=== PATIENT | male | born 1950 | race Two or more races ===

== ENCOUNTER 2021-09-25 12:56 | Inpatient (IN) | payer OTHER ==
[~2021-09-25] VITALS: Ht 188 cm; Wt 88.9 kg
[2021-09-25 14:44] LABS: Basophils # (auto) 0.1 10 ^3/uL (0-0.2); Basophils % (auto) 0.7 % (0.0-2.0); Eosinophils # (auto) 0.1 10 ^3/uL (0-0.8); Eosinophils % (auto) 0.7 % (0.0-7.0); Hematocrit 38.3 % (41.0-53.0); Hemoglobin 13.3 g/dL (13.5-17.5); Lymphocytes # (auto) 0.6 10 ^3/uL (0.4-5.4); Lymphocytes % (auto) 7.6 % (10.0-50.0); Mean Corpuscular Hemoglobin 33.5 pg (28.0-32.0); Mean Corpuscular Hgb Conc. 34.7 g/dL (32.0-36.0); Mean Corpuscular Volume 96.5 fL (80.0-100.0); Monocytes # (auto) 0.5 10 ^3/uL (0-1.3); Monocytes % (auto) 6.2 % (0.0-12.0); Neutrophils % (auto) 84.8 % (37.0-80.0); Nucleated Red Blood Cells % 0.1 %; Red Blood Cells 3.97 10^6/uL (4.5-5.90); Red Cell Distribution Width 13.9 % (11.8-14.3); White Blood Cell 8.3 10^3/uL (4.4-10.8)
[2021-09-25 14:58] LABS: Albumin 2.7 g/dL (3.4-5.0); BUN/Creatinine Ratio 13.3; Calcium 8.2 mg/dL (8.5-10.1); Potassium 3.8 mmol/L (3.5-5.1)
[2021-09-25 15:03] LABS: Bilirubin, Total 0.8 mg/dL (0.2-1.0); Total Protein 6.2 g/dL (6.4-8.2)
[2021-09-25 18:33] LABS: Urine Bacteria NONE SEEN /hpf (None Seen); Urine Blood Negative /uL (Negative); Urine Hyaline Cast FEW /lpf (0 - 2); Urine Specific Gravity 1.016 (1.001-1.035); Urine WBC 3 /hpf (0 - 3)
[2021-09-25] MEDS ORDERED: hydrALAZINE HCL 20 MG/ML VL IV PRN (19:00)
[2021-09-25] MEDS ORDERED: ACETAMINOPHEN 325 MG TAB PO PRN (19:00)
[2021-09-25] MEDS ORDERED: MORPHINE SULFATE 4 MG/ML SYR/VIAL IV PRN (19:00)
[2021-09-25] MEDS ORDERED: MORPHINE SULFATE INJECTION 2 MG/ML SYRG IV PRN (19:00)
[2021-09-25] MEDS ORDERED: NITROGLYCERIN 0.4 MG SL TAB SL PRN (19:00)
[2021-09-25] MEDS ORDERED: DEXTROSE (50%) 50ML SYRG IV PRN (19:00)
[2021-09-25] MEDS: ACCU-CHEK COMFORT CURVE STRIP VI SCH (21:28)
[2021-09-25 22:00] VITALS: BP 97/49
[2021-09-25] MEDS: SODIUM CHLORIDE 0.9% 1,000 ML IV SCH (22:03)
[2021-09-25] MEDS: SERTRALINE HCL 50 MG TAB PO SCH (22:03)
[2021-09-25] MEDS: InsuLIN REG 1unit/0.01ml Soln (100units/ml) SC SCH (22:52)
[2021-09-26] MEDS: HYDROcodone-ACET 5/325MG TAB PO PRN ×2 (01:01→06:32)
[2021-09-26 05:00] VITALS: BP 106/55
[2021-09-26] MEDS: InsuLIN REG 1unit/0.01ml Soln (100units/ml) SC SCH ×4 (06:30→21:31)
[2021-09-26] MEDS: ACCU-CHEK COMFORT CURVE STRIP VI SCH ×4 (06:31→21:38)
[2021-09-26 09:00] VITALS: BP 97/55
[2021-09-26] MEDS: busPIRone HCL 10 MG TAB PO SCH (09:29)
[2021-09-26] MEDS: ENOXAPARIN SOD 100 MG/1 ML SYRINGE SC SCH (09:30)
[2021-09-26 09:36] LABS: Basophils # (auto) 0.2 10 ^3/uL (0-0.2); Basophils % (auto) 2.1 % (0.0-2.0); Eosinophils # (auto) 0.2 10 ^3/uL (0-0.8); Hematocrit 36.3 % (41.0-53.0); Hemoglobin 12.7 g/dL (13.5-17.5); Lymphocytes # (auto) 0.8 10 ^3/uL (0.4-5.4); Lymphocytes % (auto) 10.5 % (10.0-50.0); Mean Corpuscular Hemoglobin 33.9 pg (28.0-32.0); Mean Corpuscular Volume 96.9 fL (80.0-100.0); Monocytes # (auto) 0.5 10 ^3/uL (0-1.3); Monocytes % (auto) 7.3 % (0.0-12.0); Neutrophils # (auto) 5.6 10 ^3/uL (1.6-8.6); Neutrophils % (auto) 77.1 % (37.0-80.0); Red Blood Cells 3.74 10^6/uL (4.5-5.90); Red Cell Distribution Width 13.7 % (11.8-14.3); White Blood Cell 7.2 10^3/uL (4.4-10.8)
[2021-09-26] MEDS: SODIUM CHLORIDE 0.9% 1,000 ML IV SCH ×3 (09:39→22:00)
[2021-09-26 09:58] LABS: Albumin 2.6 g/dL (3.4-5.0); Potassium 3.6 mmol/L (3.5-5.1)
[2021-09-26] MEDS ORDERED: amLODIPine BESYLATE 5 MG TAB PO SCH (10:00)
[2021-09-26 10:03] LABS: BUN/Creatinine Ratio 16.7; Bilirubin, Total 0.6 mg/dL (0.2-1.0); Total Protein 5.5 g/dL (6.4-8.2)
[2021-09-26 12:38] VITALS: BP 95/54
[2021-09-26 16:52] VITALS: BP 128/65
[2021-09-26] MEDS: SERTRALINE HCL 50 MG TAB PO SCH (21:38)
[2021-09-26 22:00] VITALS: BP 121/69
[2021-09-27 05:00] VITALS: BP 109/54
[2021-09-27 06:28] LABS: Calcium 8.1 mg/dL (8.5-10.1); Potassium 3.6 mmol/L (3.5-5.1)
[2021-09-27 06:31] LABS: BUN/Creatinine Ratio 18.1
[2021-09-27] MEDS: SODIUM CHLORIDE 0.9% 1,000 ML IV SCH ×2 (06:43→07:43)
[2021-09-27] MEDS: ACCU-CHEK COMFORT CURVE STRIP VI SCH ×3 (06:43→17:00)
[2021-09-27] MEDS: InsuLIN REG 1unit/0.01ml Soln (100units/ml) SC SCH ×3 (06:44→17:38)
[2021-09-27 09:00] VITALS: BP 138/72
[2021-09-27] MEDS ORDERED: amLODIPine BESYLATE 5 MG TAB PO SCH (10:00)
[2021-09-27] MEDS: busPIRone HCL 10 MG TAB PO SCH (11:15)
[2021-09-27] MEDS: ENOXAPARIN SOD 100 MG/1 ML SYRINGE SC SCH (11:17)
[2021-09-27 12:38] VITALS: BP 149/75
[2021-09-27] MEDS ORDERED: SODIUM CHLORIDE 0.9% 1,000 ML IV SCH (13:00)
[2021-09-27 16:38] VITALS: BP 141/67
[2021-09-27] MEDS: HYDROcodone-ACET 5/325MG TAB PO PRN (17:07)
[2021-09-27 20:43] VITALS: BP 138/72
[2021-09-27 21:04] VITALS: BP 132/76
== END 2021-09-27 21:22 | disposition home or self-care (01) | DRG 314 ==
LOC: ER 12:56 → EDBD 12:56 → TELE 18:51 → TELE-WESTW 21:40
PROVIDERS: ADMIT Nurse Practitioner; ATTEND Nurse Practitioner
PROC: 4B02XSZ Measurement of Cardiac Pacemaker, External Approach (ICD-10-PCS; principal; 2021-09-26)
DX: T82.119A Breakdown (mechanical) of unspecified cardiac electronic device, initial encounter (principal); N17.0 Acute kidney failure with tubular necrosis; S22.31XA Fracture of one rib, right side, initial encounter for closed fracture; E44.0 Moderate protein-calorie malnutrition; R29.6 Repeated falls; E11.21 Type 2 diabetes mellitus with diabetic nephropathy; Z68.25 Body mass index [BMI] 25.0-25.9, adult; I95.9 Hypotension, unspecified; F17.210 Nicotine dependence, cigarettes, uncomplicated; I10 Essential (primary) hypertension; I48.91 Unspecified atrial fibrillation; S51.002A Unspecified open wound of left elbow, initial encounter; Z20.822 Contact with and (suspected) exposure to COVID-19; W18.39XA Other fall on same level, initial encounter; M50.10 Cervical disc disorder with radiculopathy, unspecified cervical region; S61.402A Unspecified open wound of left hand, initial encounter; Y71.2 Prosthetic and other implants, materials and accessory cardiovascular devices associated with adverse incidents; Z82.49 Family history of ischemic heart disease and other diseases of the circulatory system; Z82.5 Family history of asthma and other chronic lower respiratory diseases; Z91.14 Patient's other noncompliance with medication regimen; Z90.49 Acquired absence of other specified parts of digestive tract; Z95.0 Presence of cardiac pacemaker; Y93.89 Activity, other specified; Y92.89 Other specified places as the place of occurrence of the external cause; Y99.8 Other external cause status
CPT/HCPCS: 36415; 70450; 71046; 71101; 72125; 72131; 80048; 80053; 80061; 81001; 82550; 82962; 83036; 83880; 84484; 85025; 87426; 93005; 93306; 93886; 96374; 97163; G0378; J1815

== ENCOUNTER 2021-11-10 12:36 | Inpatient (IN) | payer OTHER ==
[~2021-11-10] VITALS: Ht 190.5 cm; Wt 82.7 kg
[2021-11-10] MEDS ORDERED: SODIUM CHLORIDE 0.9% 1,000 ML IVB ONE (13:00)
[2021-11-10 13:35] LABS: Urine Bacteria NONE SEEN /hpf (None Seen); Urine Blood Negative /uL (Negative); Urine Hyaline Cast FEW /lpf (0 - 2); Urine Specific Gravity 1.017 (1.001-1.035); Urine WBC 1 /hpf (0 - 3)
[2021-11-10 13:54] LABS: Amphetamine Screen, Urine NEGATIVE (NEGATIVE); Barbiturate Scree,Urine NEGATIVE (NEGATIVE); Benzodiazephine Screen, Urine NEGATIVE (NEGATIVE); Cannabinoid Screen, Urine NEGATIVE (NEGATIVE); Cocaine Screen, Urine NEGATIVE (NEGATIVE); Opiate Scree,Urine NEGATIVE (NEGATIVE); Phencyclidine Screen, Urine NEGATIVE (NEGATIVE)
[2021-11-10 15:06] LABS: Basophils # (auto) 0.1 10 ^3/uL (0-0.2); Basophils % (auto) 0.5 % (0.0-2.0); Eosinophils # (auto) 0 10 ^3/uL (0-0.8); Eosinophils % (auto) 0.3 % (0.0-7.0); Hematocrit 36.9 % (41.0-53.0); Hemoglobin 12.6 g/dL (13.5-17.5); Lymphocytes # (auto) 0.7 10 ^3/uL (0.4-5.4); Lymphocytes % (auto) 6.6 % (10.0-50.0); Mean Corpuscular Hemoglobin 33.9 pg (28.0-32.0); Mean Corpuscular Hgb Conc. 34.3 g/dL (32.0-36.0); Mean Corpuscular Volume 98.8 fL (80.0-100.0); Monocytes # (auto) 0.7 10 ^3/uL (0-1.3); Monocytes % (auto) 6.6 % (0.0-12.0); Neutrophils # (auto) 8.7 10 ^3/uL (1.6-8.6); Red Blood Cells 3.73 10^6/uL (4.5-5.90); Red Cell Distribution Width 14.2 % (11.8-14.3); White Blood Cell 10.1 10^3/uL (4.4-10.8)
[2021-11-10 15:21] LABS: INR 1.05 (0.9-1.15); Partial Thromboplastin Time 20.5 sec (23.6-33.0)
[2021-11-10 15:26] LABS: Albumin 3.3 g/dL (3.4-5.0); Calcium 8.1 mg/dL (8.5-10.1); Magnesium 3.5 mg/dL (1.6-2.6); Potassium 3.9 mmol/L (3.5-5.1)
[2021-11-10 15:29] LABS: BUN/Creatinine Ratio 15.9; Bilirubin, Total 0.9 mg/dL (0.2-1.0); Total Protein 6.5 g/dL (6.4-8.2)
[2021-11-10] MEDS: NOREPINEPHRINE 8 MG/250ML KIT 250 ML IV SCH ×2 (16:24→18:53)
[2021-11-10] MEDS ORDERED: MORPHINE SULFATE 4 MG/ML SYR/VIAL IV PRN (18:30)
[2021-11-10] MEDS ORDERED: MORPHINE SULFATE INJECTION 2 MG/ML SYRG IV PRN (18:30)
[2021-11-10] MEDS ORDERED: HYDROcodone-ACET 5/325MG TAB PO PRN (18:30)
[2021-11-10] MEDS ORDERED: NITROGLYCERIN 0.4 MG SL TAB SL PRN (18:30)
[2021-11-10] MEDS ORDERED: ACETAMINOPHEN 325 MG TAB PO PRN (18:30)
[2021-11-10] MEDS ORDERED: DOCUSATE SOD 100 MG CAP PO PRN (18:30)
[2021-11-10] MEDS ORDERED: ONDANSETRON HCL 4 MG/2 ML VIAL IV PRN (18:30)
[2021-11-10] MEDS ORDERED: cefTRIAXone 1GM/50ML D5W 50 ML IV ONE (19:00)
[2021-11-10] MEDS ORDERED: SODIUM CHLORIDE 0.9% 1,000 ML IV ONE (19:00)
[2021-11-10] MEDS: SODIUM CHLORIDE 0.9% 1,000 ML IV SCH (19:30)
[2021-11-10] MEDS: ASCORBIC ACID 500 MG TAB PO SCH (22:55)
[2021-11-11] MEDS: SODIUM CHLORIDE 0.9% 1,000 ML IV SCH ×4 (01:25→23:30)
[2021-11-11] MEDS: MORPHINE SULFATE INJECTION 2 MG/ML SYRG IV PRN (04:14)
[2021-11-11 05:49] LABS: Eosinophils # (auto) 0.2 10 ^3/uL (0-0.8); Lymphocytes # (auto) 0.9 10 ^3/uL (0.4-5.4); White Blood Cell 8.8 10^3/uL (4.4-10.8)
[2021-11-11 05:55] LABS: Basophils # (auto) 0.1 10 ^3/uL (0-0.2); Basophils % (auto) 0.8 % (0.0-2.0); Eosinophils % (auto) 2.4 % (0.0-7.0); Hematocrit 31.1 % (41.0-53.0); Hemoglobin 11.1 g/dL (13.5-17.5); Lymphocytes % (auto) 10.1 % (10.0-50.0); Mean Corpuscular Hemoglobin 34.3 pg (28.0-32.0); Mean Corpuscular Hgb Conc. 35.8 g/dL (32.0-36.0); Mean Corpuscular Volume 95.9 fL (80.0-100.0); Monocytes # (auto) 0.7 10 ^3/uL (0-1.3); Monocytes % (auto) 7.9 % (0.0-12.0); Neutrophils # (auto) 6.9 10 ^3/uL (1.6-8.6); Neutrophils % (auto) 78.8 % (37.0-80.0); Red Blood Cells 3.24 10^6/uL (4.5-5.90); Red Cell Distribution Width 13.9 % (11.8-14.3)
[2021-11-11 06:02] LABS: Albumin 2.7 g/dL (3.4-5.0); Calcium 7.7 mg/dL (8.5-10.1); Potassium 3.5 mmol/L (3.5-5.1)
[2021-11-11 06:07] LABS: BUN/Creatinine Ratio 18.3; Bilirubin, Total 0.6 mg/dL (0.2-1.0); Total Protein 6.1 g/dL (6.4-8.2)
[2021-11-11] MEDS: MULTIPLE VITAMIN TAB PO SCH (08:56)
[2021-11-11] MEDS: ZINC SULFATE 220mg CAP or TAB PO SCH (08:56)
[2021-11-11] MEDS: ENOXAPARIN SOD 30 MG/0.3 ML SYRINGE SC SCH (08:57)
[2021-11-11] MEDS: ASCORBIC ACID 500 MG TAB PO SCH ×2 (08:57→23:31)
[2021-11-11] MEDS ORDERED: LORazepam 2MG/ML-1ML VIAL IV PRN (10:45)
[2021-11-11 10:59] LABS: % Iron Saturation 19.7 % (20-55)
[2021-11-11 12:11] LABS: Ferritin 260.7 ng/mL (10-322); Folate (Folic Acid) 7.04 ng/mL (5.38-24)
[2021-11-11] MEDS: PRAMIPEXOLE DIHYDROCHLORIDE MO 0.25 MG TAB PO SCH (23:30)
[2021-11-12] MEDS ORDERED: ZOLPIDEM TARTRATE 5 MG TAB PO PRN
[2021-11-12] MEDS ORDERED: HALOPERIDOL LACTATE 5 MG/ML INJ VIAL IM PRN (03:15)
[2021-11-12] MEDS: SODIUM CHLORIDE 0.9% 1,000 ML IV SCH ×3 (04:05→17:25)
[2021-11-12 05:00] VITALS: BP 130/65
[2021-11-12 09:24] VITALS: BP 128/62
[2021-11-12] MEDS ORDERED: ROSU1TAB13 PO (09:44)
[2021-11-12] MEDS ORDERED: PARO-135 PO (09:44)
[2021-11-12] MEDS ORDERED: AMLO-496 PO (09:44)
[2021-11-12] MEDS ORDERED: GLIM-5 PO (09:44)
[2021-11-12] MEDS ORDERED: LISI-285 PO (09:44)
[2021-11-12] MEDS ORDERED: AMIT25TA12 PO (09:44)
[2021-11-12] MEDS ORDERED: AMIT1TAB41 PO (09:44)
[2021-11-12] MEDS: ZINC SULFATE 220mg CAP or TAB PO SCH (09:54)
[2021-11-12] MEDS: MULTIPLE VITAMIN TAB PO SCH (09:58)
[2021-11-12] MEDS: ENOXAPARIN SOD 30 MG/0.3 ML SYRINGE SC SCH (09:58)
[2021-11-12] MEDS: ASCORBIC ACID 500 MG TAB PO SCH ×2 (09:58→22:00)
[2021-11-12] MEDS ORDERED: ENOXAPARIN SOD 60 MG/0.6 ML SYRINGE SC ONE (10:30)
[2021-11-12 13:22] VITALS: BP 133/79
[2021-11-12] MEDS ORDERED: clonazePAM 0.5 MG TAB PO PRN (14:15)
[2021-11-12 18:04] VITALS: BP 128/67
[2021-11-12 20:00] VITALS: BP 138/69
[2021-11-12 22:00] VITALS: BP 128/65
[2021-11-12] MEDS: PRAMIPEXOLE DIHYDROCHLORIDE MO 0.25 MG TAB PO SCH (22:48)
[2021-11-12] MEDS: TEMAZEPAM 15 MG CAP PO PRN (23:50)
[2021-11-13] MEDS: SODIUM CHLORIDE 0.9% 1,000 ML IV SCH ×4 (00:05→21:18)
[2021-11-13] MEDS: MORPHINE SULFATE INJECTION 2 MG/ML SYRG IV PRN (02:43)
[2021-11-13 08:30] VITALS: BP 141/71
[2021-11-13] MEDS: ASCORBIC ACID 500 MG TAB PO SCH ×2 (09:30→21:18)
[2021-11-13] MEDS: ZINC SULFATE 220mg CAP or TAB PO SCH (09:30)
[2021-11-13] MEDS: MULTIPLE VITAMIN TAB PO SCH (09:30)
[2021-11-13] MEDS: ENOXAPARIN SOD 100 MG/1 ML SYRINGE SC SCH (09:30)
[2021-11-13 12:30] VITALS: BP 143/71
[2021-11-13 17:00] VITALS: BP 146/66
[2021-11-13 21:04] VITALS: BP 138/72
[2021-11-13] MEDS: PRAMIPEXOLE DIHYDROCHLORIDE MO 0.25 MG TAB PO SCH (21:18)
[2021-11-13] MEDS: TEMAZEPAM 15 MG CAP PO PRN (21:19)
[2021-11-14] MEDS: SODIUM CHLORIDE 0.9% 1,000 ML IV SCH ×3 (02:53→16:05)
[2021-11-14 05:03] VITALS: BP 107/65
[2021-11-14 09:00] VITALS: BP 133/68
[2021-11-14] MEDS: ASCORBIC ACID 500 MG TAB PO SCH (09:34)
[2021-11-14] MEDS: ZINC SULFATE 220mg CAP or TAB PO SCH (09:34)
[2021-11-14] MEDS: MULTIPLE VITAMIN TAB PO SCH (09:34)
[2021-11-14] MEDS: ENOXAPARIN SOD 100 MG/1 ML SYRINGE SC SCH (09:34)
[2021-11-14 13:00] VITALS: BP 147/74
[2021-11-14 14:06] LABS: Basophils # (auto) 0 10 ^3/uL (0-0.2); Basophils % (auto) 0.9 % (0.0-2.0); Eosinophils # (auto) 0.2 10 ^3/uL (0-0.8); Hematocrit 31.2 % (41.0-53.0); Hemoglobin 10.9 g/dL (13.5-17.5); Lymphocytes # (auto) 0.8 10 ^3/uL (0.4-5.4); Lymphocytes % (auto) 14.4 % (10.0-50.0); Mean Corpuscular Hemoglobin 33.7 pg (28.0-32.0); Mean Corpuscular Hgb Conc. 35.1 g/dL (32.0-36.0); Mean Corpuscular Volume 96.1 fL (80.0-100.0); Monocytes # (auto) 0.4 10 ^3/uL (0-1.3); Monocytes % (auto) 7.9 % (0.0-12.0); Neutrophils # (auto) 3.9 10 ^3/uL (1.6-8.6); Neutrophils % (auto) 73.8 % (37.0-80.0); Red Blood Cells 3.24 10^6/uL (4.5-5.90); Red Cell Distribution Width 13.5 % (11.8-14.3); White Blood Cell 5.3 10^3/uL (4.4-10.8)
[2021-11-14 14:41] LABS: Albumin 2.8 g/dL (3.4-5.0); Potassium 3.9 mmol/L (3.5-5.1)
[2021-11-14 14:47] LABS: BUN/Creatinine Ratio 12.5; Bilirubin, Total 0.5 mg/dL (0.2-1.0); Total Protein 5.8 g/dL (6.4-8.2)
[2021-11-14 17:04] VITALS: BP 140/72
[2021-11-15] MEDS ORDERED: ENOXAPARIN SOD 80 MG/0.8ML SYRINGE SC SCH (10:00)
== END 2021-11-14 15:59 | disposition home health service (06) | DRG 314 ==
LOC: EDBD 12:36 → ER 12:36 → TELE 18:30 → TELE-CENTR 11-11 09:44
PROVIDERS: ADMIT Internal Medicine; ATTEND Internal Medicine
PROC: 4B02XSZ Measurement of Cardiac Pacemaker, External Approach (ICD-10-PCS; principal; 2021-11-10)
DX: I95.9 Hypotension, unspecified (principal); N17.0 Acute kidney failure with tubular necrosis; M48.56XA Collapsed vertebra, not elsewhere classified, lumbar region, initial encounter for fracture; J90 Pleural effusion, not elsewhere classified; E86.0 Dehydration; E11.42 Type 2 diabetes mellitus with diabetic polyneuropathy; E11.65 Type 2 diabetes mellitus with hyperglycemia; E61.1 Iron deficiency; F17.210 Nicotine dependence, cigarettes, uncomplicated; G25.81 Restless legs syndrome; I48.91 Unspecified atrial fibrillation; Z20.822 Contact with and (suspected) exposure to COVID-19; F19.10 Other psychoactive substance abuse, uncomplicated; G47.00 Insomnia, unspecified; I10 Essential (primary) hypertension; R29.6 Repeated falls; F10.10 Alcohol abuse, uncomplicated; F12.10 Cannabis abuse, uncomplicated; Z79.01 Long term (current) use of anticoagulants; Z79.84 Long term (current) use of oral hypoglycemic drugs; Z82.49 Family history of ischemic heart disease and other diseases of the circulatory system; Z82.5 Family history of asthma and other chronic lower respiratory diseases; Z90.49 Acquired absence of other specified parts of digestive tract; Z91.14 Patient's other noncompliance with medication regimen; Z95.0 Presence of cardiac pacemaker; I27.20 Pulmonary hypertension, unspecified
CPT/HCPCS: 36415; 51702; 70450; 70551; 71045; 72131; 80053; 80307; 81001; 82607; 82728; 82746; 83540; 83550; 83605; 83735; 84443; 84484; 85025; 85379; 85610; 85730; 87040; 87081; 87426; 93005; 93306; 93970; 95819; 96361; 96365; 97110; 97116; 97163; 97530; 99291; G0378; J0696; J2405

== ENCOUNTER 2022-01-29 12:21 | Emergency (ER) | payer OTHER ==
[~2022-01-29] VITALS: Ht 190.5 cm; Wt 83.9 kg
[~2022-01-29 12:21] MED LIST: AMIT25TA12 PO; GLIM-5 PO; PARO-135 PO; ROSU1TAB13 PO
[2022-01-29 12:24] VITALS: BP 127/69
[2022-01-29 13:45] LABS: Basophils # (auto) 0.1 10 ^3/uL (0-0.2); Basophils % (auto) 1.1 % (0.0-2.0); Eosinophils # (auto) 0.1 10 ^3/uL (0-0.8); Eosinophils % (auto) 1.3 % (0.0-7.0); Hematocrit 37.9 % (41.0-53.0); Hemoglobin 13.2 g/dL (13.5-17.5); Lymphocytes % (auto) 10.3 % (10.0-50.0); Mean Corpuscular Hemoglobin 33.4 pg (28.0-32.0); Mean Corpuscular Hgb Conc. 34.8 g/dL (32.0-36.0); Monocytes # (auto) 0.7 10 ^3/uL (0-1.3); Monocytes % (auto) 7.3 % (0.0-12.0); Neutrophils # (auto) 7.5 10 ^3/uL (1.6-8.6); Nucleated Red Blood Cells % 0.1 %; Red Blood Cells 3.95 10^6/uL (4.5-5.90); Red Cell Distribution Width 13.1 % (11.8-14.3); White Blood Cell 9.4 10^3/uL (4.4-10.8)
[2022-01-29 14:37] LABS: Albumin 3.1 g/dL (3.4-5.0); BUN/Creatinine Ratio 11.1; Calcium 8.7 mg/dL (8.5-10.1); Potassium 3.8 mmol/L (3.5-5.1)
[2022-01-29 14:42] LABS: Bilirubin, Total 0.5 mg/dL (0.2-1.0); Total Protein 6.3 g/dL (6.4-8.2)
[2022-02-05] MEDS ORDERED: LEVO500T31 PO (11:59)
== END 2022-01-29 14:55 | disposition left against medical advice (07) ==
LOC: ER 12:21
DX: S01.81XA Laceration without foreign body of other part of head, initial encounter (principal); R55 Syncope and collapse; R07.81 Pleurodynia; M25.521 Pain in right elbow; Z53.21 Procedure and treatment not carried out due to patient leaving prior to being seen by health care provider; V89.2XXA Person injured in unspecified motor-vehicle accident, traffic, initial encounter; Y93.I9 Activity, other involving external motion; Y92.89 Other specified places as the place of occurrence of the external cause; Y99.8 Other external cause status
CPT/HCPCS: 36415; 70450; 71045; 80053; 84484; 85025; 93005

== ENCOUNTER 2022-02-01 09:46 | Emergency (ER) | payer OTHER ==
[~2022-02-01] VITALS: Ht 190.5 cm; Wt 81.6 kg
[2022-02-01] MEDS ORDERED: CLINDAMYCIN 600MG IV 50 ML IV ONE (12:15)
[2022-02-01] MEDS ORDERED: cefTRIAXone 1GM/50ML D5W 50 ML IV ONE ×2 (12:15→17:30)
[2022-02-01 13:42] LABS: Basophils # (auto) 0.1 10 ^3/uL (0-0.2); Basophils % (auto) 0.7 % (0.0-2.0); Eosinophils # (auto) 0.1 10 ^3/uL (0-0.8); Eosinophils % (auto) 1.9 % (0.0-7.0); Hematocrit 35.5 % (41.0-53.0); Hemoglobin 12.3 g/dL (13.5-17.5); Lymphocytes # (auto) 0.6 10 ^3/uL (0.4-5.4); Lymphocytes % (auto) 8.2 % (10.0-50.0); Mean Corpuscular Hemoglobin 33.4 pg (28.0-32.0); Mean Corpuscular Hgb Conc. 34.6 g/dL (32.0-36.0); Mean Corpuscular Volume 96.3 fL (80.0-100.0); Monocytes # (auto) 0.6 10 ^3/uL (0-1.3); Monocytes % (auto) 8.3 % (0.0-12.0); Neutrophils % (auto) 80.9 % (37.0-80.0); Nucleated Red Blood Cells % 0.1 %; Red Blood Cells 3.69 10^6/uL (4.5-5.90); Red Cell Distribution Width 13.2 % (11.8-14.3); White Blood Cell 7.5 10^3/uL (4.4-10.8)
[2022-02-01 13:51] LABS: INR 1.06 (0.9-1.15); Partial Thromboplastin Time 26.5 sec (23.6-33.0)
[2022-02-01 13:54] LABS: Albumin 2.9 g/dL (3.4-5.0); BUN/Creatinine Ratio 11.6; Calcium 8.3 mg/dL (8.5-10.1)
[2022-02-01 13:59] LABS: Bilirubin, Total 0.7 mg/dL (0.2-1.0); Total Protein 6.3 g/dL (6.4-8.2)
[2022-02-01] MEDS ORDERED: FUROSEMIDE 40 MG/4 ML VIAL IV ONE (15:45)
[2022-02-01 18:09] VITALS: BP 183/72
[2022-02-01] MEDS ORDERED: CEPH-509 PO ×2 (18:31→19:05)
[2022-02-01] MEDS ORDERED: CLIN300C8 PO ×2 (18:31→19:05)
[2022-02-05] MEDS ORDERED: LEVO500T31 PO (11:59)
== END 2022-02-01 18:47 | disposition home or self-care (01) ==
LOC: ER 09:46
DX: L03.113 Cellulitis of right upper limb (principal); E44.0 Moderate protein-calorie malnutrition; I11.0 Hypertensive heart disease with heart failure; I50.9 Heart failure, unspecified; E11.9 Type 2 diabetes mellitus without complications; Z68.22 Body mass index [BMI] 22.0-22.9, adult
CPT/HCPCS: 36415; 70450; 71045; 73200; 80053; 83605; 83880; 84484; 85025; 85610; 85730; 87040; 87077; 87186; 96365; 96366; 96367; 99291; J0696; J3490

== ENCOUNTER 2022-02-03 15:41 | Inpatient (IN) | payer OTHER ==
[~2022-02-03] VITALS: Ht 190.5 cm; Wt 79.2 kg
[~2022-02-03 15:41] MED LIST changes: +CEPH-509 PO; +CLIN300C8 PO
[2022-02-03] MEDS ORDERED: cefTRIAXone 1GM/50ML D5W 50 ML IV ONE (16:15)
[2022-02-03] MEDS ORDERED: metroNIDAZOLE 500MG/100ML 100 ML IV ONE (16:15)
[2022-02-03 17:33] LABS: Albumin 2.8 g/dL (3.4-5.0); Calcium 8.6 mg/dL (8.5-10.1); INR 1.04 (0.9-1.15); Partial Thromboplastin Time 26.4 sec (23.6-33.0); Potassium 3.8 mmol/L (3.5-5.1)
[2022-02-03 17:35] LABS: Basophils # (auto) 0 10 ^3/uL (0-0.2); Basophils % (auto) 0.6 % (0.0-2.0); Eosinophils # (auto) 0.3 10 ^3/uL (0-0.8); Eosinophils % (auto) 4.1 % (0.0-7.0); Hematocrit 34.1 % (41.0-53.0); Hemoglobin 11.9 g/dL (13.5-17.5); Lymphocytes # (auto) 1.1 10 ^3/uL (0.4-5.4); Lymphocytes % (auto) 16.7 % (10.0-50.0); Mean Corpuscular Volume 94.1 fL (80.0-100.0); Monocytes # (auto) 0.6 10 ^3/uL (0-1.3); Monocytes % (auto) 9.3 % (0.0-12.0); Neutrophils # (auto) 4.7 10 ^3/uL (1.6-8.6); Neutrophils % (auto) 69.3 % (37.0-80.0); Nucleated Red Blood Cells % 0.1 %; Red Blood Cells 3.62 10^6/uL (4.5-5.90); Red Cell Distribution Width 13.4 % (11.8-14.3); White Blood Cell 6.8 10^3/uL (4.4-10.8)
[2022-02-03 17:59] LABS: BUN/Creatinine Ratio 11.2; Bilirubin, Total 0.6 mg/dL (0.2-1.0); Total Protein 6.3 g/dL (6.4-8.2)
[2022-02-04] MEDS ORDERED: ONDANSETRON HCL 4 MG/2 ML VIAL IV PRN (00:45)
[2022-02-04] MEDS ORDERED: HYDROcodone-ACET 5/325MG TAB PO PRN (00:45)
[2022-02-04] MEDS ORDERED: TEMAZEPAM 15 MG CAP PO PRN (00:45)
[2022-02-04] MEDS ORDERED: ACETAMINOPHEN 325 MG TAB PO PRN (00:45)
[2022-02-04] MEDS: cloNIDine HCL 0.1 MG TAB PO PRN ×2 (04:20→13:39)
[2022-02-04 04:30] VITALS: BP 174/79
[2022-02-04 05:04] LABS: Urine Bacteria NONE SEEN /hpf (None Seen); Urine Blood Negative /uL (Negative); Urine Hyaline Cast FEW /lpf (0 - 2); Urine Specific Gravity 1.022 (1.001-1.035); Urine WBC 1 /hpf (0 - 3)
[2022-02-04] MEDS ORDERED: metroNIDAZOLE 500MG/100ML 100 ML IV SCH (06:00)
[2022-02-04] MEDS ORDERED: INFLUENZA QUAD 2021-2022 0.5 ML SYRG IM SCH (06:45)
[2022-02-04] MEDS ORDERED: LISI-287 PO (06:54)
[2022-02-04] MEDS ORDERED: INSU70IN3 SC (06:54)
[2022-02-04] MEDS ORDERED: GABA400C11 PO (06:54)
[2022-02-04] MEDS ORDERED: AMLO-496 PO (06:54)
[2022-02-04] MEDS ORDERED: ZOLP10TA6 PO (06:54)
[2022-02-04] MEDS ORDERED: LEVO25TA6 PO (06:54)
[2022-02-04 09:00] VITALS: BP 160/96
[2022-02-04] MEDS ORDERED: cefTRIAXone 1GM/50ML D5W 50 ML IV SCH (09:00)
[2022-02-04] MEDS ORDERED: LISINOPRIL 10 MG TAB PO SCH (10:00)
[2022-02-04] MEDS ORDERED: ENOXAPARIN SOD 40 MG/0.4 ML SYRINGE SC SCH (10:00)
[2022-02-04] MEDS ORDERED: PANTOPRAZOLE 40 MG TAB PO SCH (10:00)
[2022-02-04] MEDS ORDERED: HCTZ 25 MG TAB PO SCH (10:00)
[2022-02-04] MEDS ORDERED: SERTRALINE HCL 50 MG TAB PO SCH (10:00)
[2022-02-04 13:00] VITALS: BP 177/86
[2022-02-04] MEDS ORDERED: HCTZ 25 MG TAB PO ONE (13:45)
[2022-02-04] MEDS ORDERED: DEXTROSE (50%) 50ML SYRG IV PRN (13:45)
[2022-02-04] MEDS ORDERED: LISINOPRIL 10 MG TAB PO ONE (13:45)
[2022-02-04] MEDS ORDERED: TETANUS-DIPTH-ACEL PERTUSSIS 0.5ML SYR Tdap IM ONE ×2 (13:45→14:00)
[2022-02-04] MEDS ORDERED: CLIN300C8 PO (13:59)
[2022-02-04] MEDS ORDERED: LEVO500T31 PO (13:59)
[2022-02-04] MEDS ORDERED: CLINDAMYCIN HCL 150 MG CAP PO SCH (14:00)
[2022-02-04] MEDS ORDERED: levoFLOXacin 500 MG TAB PO SCH (14:00)
[2022-02-04 17:00] VITALS: BP 148/80
[2022-02-04] MEDS ORDERED: ACCU-CHEK COMFORT CURVE STRIP VI SCH (17:00)
[2022-02-04] MEDS ORDERED: InsuLIN REG 1unit/0.01ml Soln (100units/ml) SC SCH (17:00)
[2022-02-04] MEDS ORDERED: ATORVASTATIN 20 MG TAB PO SCH ×2 (22:00)
[2022-02-05] MEDS ORDERED: HCTZ 25 MG TAB PO SCH (10:00)
[2022-02-05] MEDS ORDERED: INSULIN LANTUS (GLARGINE) 1 /0.01ml (100units/ml) SC SCH (10:00)
[2022-02-05] MEDS ORDERED: LISINOPRIL 10 MG TAB PO SCH (10:00)
[2022-02-05] MEDS ORDERED: LEVO500T31 PO (11:59)
== END 2022-02-04 19:20 | disposition home health service (06) | DRG 603 ==
LOC: ER 15:41 → OVERFLOW 02-04 00:34 → CENTRAL 02-04 04:30
PROVIDERS: ADMIT Nurse Practitioner; ATTEND Internal Medicine
DX: L03.113 Cellulitis of right upper limb (principal); S51.011A Laceration without foreign body of right elbow, initial encounter; E11.22 Type 2 diabetes mellitus with diabetic chronic kidney disease; E78.5 Hyperlipidemia, unspecified; F12.90 Cannabis use, unspecified, uncomplicated; F17.210 Nicotine dependence, cigarettes, uncomplicated; E03.9 Hypothyroidism, unspecified; Z20.822 Contact with and (suspected) exposure to COVID-19; X58.XXXA Exposure to other specified factors, initial encounter; I12.9 Hypertensive chronic kidney disease with stage 1 through stage 4 chronic kidney disease, or unspecified chronic kidney disease; N18.30 Chronic kidney disease, stage 3 unspecified; Z82.49 Family history of ischemic heart disease and other diseases of the circulatory system; Z82.5 Family history of asthma and other chronic lower respiratory diseases; Z90.49 Acquired absence of other specified parts of digestive tract; Y93.89 Activity, other specified; Y92.89 Other specified places as the place of occurrence of the external cause; Y99.8 Other external cause status
CPT/HCPCS: 36415; 71045; 80053; 81001; 84484; 85025; 85610; 85730; 87077; 87186; 87205; 90715; 96365; 96367; G0378; J0696; J3490

== ENCOUNTER → 2022-11-22 | Emergency (ER) | payer OTHER ==
[~2022-11-22] VITALS: Ht 190.5 cm; Wt 81.8 kg
[~2022-11-22] MED LIST changes: +AMLO-496 PO; -CEPH-509 PO; +GABA400C11 PO; +INSU70IN3 SC; +LEVO25TA6 PO; +LEVO500T31 PO; +LISI-287 PO
[2022-11-22 14:19] VITALS: BP 194/96
[2022-11-22 15:18] LABS: BUN/Creatinine Ratio 13.3; Calcium 8.4 mg/dL (8.5-10.1); Magnesium 2.5 mg/dL (1.6-2.6); Potassium 4.3 mmol/L (3.5-5.1)
[2022-11-22 15:20] LABS: Basophils # (auto) 0.1 10 ^3/uL (0-0.2); Basophils % (auto) 0.7 % (0.0-2.0); Eosinophils # (auto) 0.3 10 ^3/uL (0-0.8); Eosinophils % (auto) 3.7 % (0.0-7.0); Hematocrit 41.2 % (41.0-53.0); Hemoglobin 14.6 g/dL (13.5-17.5); Lactic Acid w/Reflex 4.2 mmol/L (0.4-2.0); Lymphocytes # (auto) 0.8 10 ^3/uL (0.4-5.4); Mean Corpuscular Hemoglobin 33.6 pg (28.0-32.0); Mean Corpuscular Hgb Conc. 35.4 g/dL (32.0-36.0); Mean Corpuscular Volume 94.8 fL (80.0-100.0); Monocytes # (auto) 0.5 10 ^3/uL (0-1.3); Monocytes % (auto) 6.4 % (0.0-12.0); Neutrophils # (auto) 5.6 10 ^3/uL (1.6-8.6); Neutrophils % (auto) 78.2 % (37.0-80.0); Nucleated Red Blood Cells % 0.1 %; Red Blood Cells 4.35 10^6/uL (4.5-5.90); Red Cell Distribution Width 13.9 % (11.8-14.3); White Blood Cell 7.1 10^3/uL (4.4-10.8)
[2022-11-22 15:21] LABS: Bilirubin, Total 0.6 mg/dL (0.2-1.0); Total Protein 6.3 g/dL (6.4-8.2)
== END | disposition left against medical advice (07) ==
LOC: ER 13:38
DX: R06.02 Shortness of breath (principal); F17.210 Nicotine dependence, cigarettes, uncomplicated; F12.10 Cannabis abuse, uncomplicated; E11.9 Type 2 diabetes mellitus without complications; I10 Essential (primary) hypertension
CPT/HCPCS: 36415; 71045; 80053; 82962; 83605; 83735; 83880; 84484; 85025; 85379; 87040; 93005

== ENCOUNTER 2024-09-08 10:32 | Inpatient (IN) | payer OTHER ==
[~2024-09-08] VITALS: Ht 190.5 cm; Wt 71.5 kg
[2024-09-08] VITALS (7 sets, daily range): BP systolic 142; BP diastolic 68; PULSE 62–77; RESP 18–24; TEMP 98.2; O2SAT 94–100
[~2024-09-08 10:32] MED LIST changes: -AMIT25TA12 PO; +AMIT25TA20 PO; -AMLO-496 PO; +AMLO1TAB23 PO; +CLIN1CAP70 PO; -CLIN300C8 PO; +GABA-1251 PO; -GABA400C11 PO; +GLIM-38 PO; -GLIM-5 PO; +ROSU10TA64 PO; -ROSU1TAB13 PO
[2024-09-08 11:15] LABS: Basophils # (auto) 0.1 10 ^3/uL (0-0.2); Basophils % (auto) 1.2 % (0.0-2.0); Eosinophils # (auto) 0.4 10 ^3/uL (0-0.8); Eosinophils % (auto) 5.9 % (0.0-7.0); Hematocrit 30.2 % (41.0-53.0); Hemoglobin 10.3 g/dL (13.5-17.5); Lymphocytes # (auto) 0.8 10 ^3/uL (0.4-5.4); Lymphocytes % (auto) 12.7 % (10.0-50.0); Mean Corpuscular Hemoglobin 32.5 pg (28.0-32.0); Mean Corpuscular Volume 95.5 fL (80.0-100.0); Monocytes # (auto) 0.4 10 ^3/uL (0-1.3); Monocytes % (auto) 5.6 % (0.0-12.0); Neutrophils % (auto) 74.6 % (37.0-80.0); Platelet Count (auto) 162 10^3/uL (140-450); Red Blood Cells 3.16 10^6/uL (4.5-5.90); Red Cell Distribution Width 13.1 % (11.8-14.3); White Blood Cell 6.7 10^3/uL (4.4-10.8)
[2024-09-08] MEDS: methylPREDNISolone SOD SUCC 125 MG/2 ML VL IV ONE (11:19)
[2024-09-08 11:28] LABS: Chloride 109 mmol/L (98-107); Potassium 5.2 mmol/L (3.5-5.1); Sodium 137 mmol/L (136-145)
[2024-09-08 11:29] LABS: Anion Gap 9 (5-15); Calcium 9.2 mg/dL (8.7-10.4); Carbon Dioxide 19 mmol/L (20-31)
[2024-09-08 11:34] LABS: BUN/Creatinine Ratio 12.2 (10.0-20.0); Blood Urea Nitrogen 59 mg/dL (9-23); Glucose 231 mg/dL (74-106)
[2024-09-08] MEDS ORDERED: ONDANSETRON HCL 4 MG/2 ML VIAL IV PRN (14:45)
[2024-09-08] MEDS ORDERED: ACETAMINOPHEN 325 MG TAB PO PRN (14:45)
[2024-09-08] MEDS ORDERED: MORPHINE SULFATE INJ 2 MG/ml SYRG IV PRN ×2 (14:45)
[2024-09-08] MEDS ORDERED: NITROGLYCERIN 0.4 MG SL TAB SL PRN (14:45)
[2024-09-08] MEDS: IPRATROPIUM BROM 0.5 MG/2.5ML INH SOL NEB SCH (18:12)
[2024-09-08] MEDS: ALBUTEROL SULF 2.5 MG/0.5ML(0.5%) NEB SOLN NEB SCH (18:12)
[2024-09-08 19:21] LABS: Urine Bacteria None Seen /hpf (None Seen)
[2024-09-08 20:03] LABS: Urine Blood 1+ /uL (Negative); Urine Clarity Clear (Clear); Urine Color Light-Yellow (Yellow); Urine Protein, UAD 3+ (Negative); Urine Specific Gravity 1.014 (1.001-1.035); Urine Urobilinogen Normal (Negative); Urine WBC 1 /hpf (0 - 3)
[2024-09-08] MEDS: ASPirin 81 mg TAB PO ONE (21:35)
[2024-09-08] MEDS: traZODone HCL 50 MG TAB PO SCH (21:35)
[2024-09-08] MEDS: hydrOXYzine 25 MG TAB or CAP PO PRN (21:35)
[2024-09-08] MEDS: methylPREDNISolone SOD SUCC 40 MG/ML VL IV SCH (22:04)
[2024-09-08] MEDS: FUROSEMIDE 100 MG/10ML VIAL IV SCH (23:52)
[2024-09-09] VITALS (18 sets, daily range): BP systolic 122–139; BP diastolic 62–87; PULSE 56–80; RESP 16–76; TEMP 97.6–98.5; O2SAT 93–100
[2024-09-09] MEDS ORDERED: HYDR-4924 PO (06:11)
[2024-09-09] MEDS ORDERED: GLIP5TAB21 PO (06:11)
[2024-09-09] MEDS ORDERED: TRAZ-181 PO (06:11)
[2024-09-09 06:38] LABS: Basophils # (auto) 0 10 ^3/uL (0-0.2); Basophils % (auto) 0.2 % (0.0-2.0); Eosinophils # (auto) 0 10 ^3/uL (0-0.8); Hematocrit 28.8 % (41.0-53.0); Hemoglobin 9.9 g/dL (13.5-17.5); Lymphocytes # (auto) 0.4 10 ^3/uL (0.4-5.4); Lymphocytes % (auto) 6.7 % (10.0-50.0); Mean Corpuscular Hemoglobin 32.9 pg (28.0-32.0); Mean Corpuscular Hgb Conc. 34.2 g/dL (32.0-36.0); Mean Corpuscular Volume 96.2 fL (80.0-100.0); Monocytes # (auto) 0.1 10 ^3/uL (0-1.3); Monocytes % (auto) 1.3 % (0.0-12.0); Neutrophils % (auto) 91.8 % (37.0-80.0); Platelet Count (auto) 152 10^3/uL (140-450); White Blood Cell 5.5 10^3/uL (4.4-10.8)
[2024-09-09 06:44] LABS: Alanine Aminotransferase 20 U/L (7-40); Albumin 4.1 g/dL (3.2-4.8); Alkaline Phosphatase 111 U/L (46-116); Anion Gap 11 (5-15); Aspartate Aminotransferase < 8 U/L (13-40); BUN/Creatinine Ratio 12.8 (10.0-20.0); Blood Urea Nitrogen 65 mg/dL (9-23); Calcium 8.9 mg/dL (8.7-10.4); Carbon Dioxide 16 mmol/L (20-31); Chloride 105 mmol/L (98-107); Potassium 5.5 mmol/L (3.5-5.1)
[2024-09-09 06:45] LABS: Bilirubin, Total 0.4 mg/dL (0.2-1.0); Total Protein 6.6 g/dL (5.7-8.2)
[2024-09-09 06:50] LABS: Glucose 391 mg/dL (74-106); Sodium 132 mmol/L (136-145)
[2024-09-09] MEDS ORDERED: ENOXAPARIN SOD 30 MG/0.3 ML SYRINGE SC SCH (10:00)
[2024-09-09] MEDS: SODIUM ZIRCONIUM CYCL 10 GM PAK PO SCH ×2 (10:14→15:30)
[2024-09-09] MEDS: metOLazone 5 MG TAB PO ONE (11:30)
[2024-09-09] MEDS: FUROSEMIDE 100 MG/10ML VIAL IV SCH (15:34)
[2024-09-09] MEDS: SODIUM BICARBONATE 650 MG TAB PO SCH (15:34)
[2024-09-09] MEDS: ENOXAPARIN SOD 80 MG/0.8ML SYRINGE SC SCH (19:38)
[2024-09-09] MEDS: HYDROcodone-ACET 5/325MG TAB PO PRN (22:48)
[2024-09-10] VITALS (19 sets, daily range): BP systolic 128–141; BP diastolic 35–77; PULSE 60–78; RESP 16–20; TEMP 97.5–98.9; O2SAT 90–99
[2024-09-10 07:34] LABS: Calcium 8.9 mg/dL (8.7-10.4); Chloride 97 mmol/L (98-107); Potassium 4.7 mmol/L (3.5-5.1); Sodium 128 mmol/L (136-145)
[2024-09-10 07:35] LABS: Anion Gap 12 (5-15); Carbon Dioxide 19 mmol/L (20-31)
[2024-09-10 07:36] LABS: % Iron Saturation 23.3 % (20-55)
[2024-09-10 07:40] LABS: BUN/Creatinine Ratio 12.8 (10.0-20.0); Blood Urea Nitrogen 71 mg/dL (9-23)
[2024-09-10 07:42] LABS: Phosphorus 7.2 mg/dL (2.4-5.1)
[2024-09-10 07:44] LABS: Glucose 617 mg/dL (74-106)
[2024-09-10] MEDS ORDERED: INFLUENZA TRIVALENT 2024-2025 0.5 ML INJ IM ONE (10:00)
[2024-09-10] MEDS: DOBUTamine 1000MCG/ML 250 ML IV SCH (19:24)
[2024-09-10] MEDS ORDERED: DEXTROSE (50%) 50ML SYRG IV PRN ×2 (21:30→22:30)
[2024-09-10] MEDS: EPOETIN ALFA-EPBX 4,000 UNIT/ML VIAL SC ONE (21:35)
[2024-09-10] MEDS: ACCU-CHEK COMFORT CURVE STRIP VI SCH (21:36)
[2024-09-10] MEDS: InsuLIN REG 1unit/0.01ml Soln (100units/ml) SC SCH (21:37)
[2024-09-10] MEDS: SODIUM ZIRCONIUM CYCL 10 GM PAK PO SCH (21:54)
[2024-09-11] VITALS (20 sets, daily range): BP systolic 127–143; BP diastolic 56–65; PULSE 68–72; RESP 16–20; TEMP 97.6–98.3; O2SAT 94–100
[2024-09-11] MEDS: ACCU-CHEK COMFORT CURVE STRIP VI SCH (00:07)
[2024-09-11] MEDS: InsuLIN REG 1unit/0.01ml Soln (100units/ml) SC SCH (00:16)
[2024-09-11 06:13] LABS: Chloride 97 mmol/L (98-107); Potassium 3.4 mmol/L (3.5-5.1)
[2024-09-11 06:14] LABS: Anion Gap 16 (5-15); Calcium 9.3 mg/dL (8.7-10.4); Carbon Dioxide 22 mmol/L (20-31)
[2024-09-11 06:19] LABS: BUN/Creatinine Ratio 14.8 (10.0-20.0)
[2024-09-11 06:44] LABS: Glucose 57 mg/dL (74-106); Sodium 135 mmol/L (136-145)
[2024-09-11 06:46] LABS: Blood Urea Nitrogen 81 mg/dL (9-23)
[2024-09-11] MEDS ORDERED: InsuLIN REG 1unit/0.01ml Soln (100units/ml) SC SCH (07:00)
[2024-09-12] VITALS (20 sets, daily range): BP systolic 110–142; BP diastolic 52–71; PULSE 66–74; RESP 16–20; TEMP 97.8–98.4; O2SAT 93–100
[2024-09-12 06:31] LABS: Chloride 96 mmol/L (98-107); Potassium 3.5 mmol/L (3.5-5.1); Sodium 134 mmol/L (136-145)
[2024-09-12 06:32] LABS: Anion Gap 11 (5-15); Carbon Dioxide 27 mmol/L (20-31)
[2024-09-12 06:37] LABS: BUN/Creatinine Ratio 14.8 (10.0-20.0); Blood Urea Nitrogen 79 mg/dL (9-23)
[2024-09-12 06:38] LABS: Glucose 205 mg/dL (74-106)
[2024-09-12] MEDS: FUROSEMIDE 100 MG/10ML VIAL IV SCH (10:25)
[2024-09-12 11:52] LABS: Magnesium 2.4 mg/dL (1.6-2.6)
[2024-09-12 11:53] LABS: Phosphorus 5.8 mg/dL (2.4-5.1)
[2024-09-12] MEDS: SEVELAMER 800 MG TAB PO SCH (11:59)
[2024-09-12 13:27] LABS: Hepatitis B Surface Antigen Negative (Negative)
[2024-09-12 13:48] LABS: Hepatitis C Antibody Negative (Negative)
[2024-09-12 14:56] LABS: Protein, Urine 74.3 mg/dL (1-14)
[2024-09-12 14:59] LABS: Creatinine, Urine 26.05 mg/dL (30.0-125.0); Urine Protein/Creatinine Ratio 2.85
[2024-09-13] VITALS (9 sets, daily range): BP systolic 127–145; BP diastolic 59–68; PULSE 67–128; RESP 16–18; TEMP 97.1–98.4; O2SAT 94–100
== END 2024-09-13 13:30 | disposition left against medical advice (07) | DRG 280 ==
LOC: EDBD 10:32 → EDUNIT# 10:32 → ER 10:32 → TELE 14:40 → TELE-EAST 22:25
PROVIDERS: ADMIT Internal Medicine; ATTEND Internal Medicine
DX: I13.0 Hypertensive heart and chronic kidney disease with heart failure and stage 1 through stage 4 chronic kidney disease, or unspecified chronic kidney disease (principal); I50.23 Acute on chronic systolic (congestive) heart failure; I21.A1 Myocardial infarction type 2; J96.01 Acute respiratory failure with hypoxia; J44.1 Chronic obstructive pulmonary disease with (acute) exacerbation; N17.9 Acute kidney failure, unspecified; E87.20 Acidosis, unspecified; E87.1 Hypo-osmolality and hyponatremia; E11.22 Type 2 diabetes mellitus with diabetic chronic kidney disease; Z53.29 Procedure and treatment not carried out because of patient's decision for other reasons; F17.210 Nicotine dependence, cigarettes, uncomplicated; I34.0 Nonrheumatic mitral (valve) insufficiency; E87.5 Hyperkalemia; N18.32 Chronic kidney disease, stage 3b; I48.0 Paroxysmal atrial fibrillation; D63.1 Anemia in chronic kidney disease; E83.39 Other disorders of phosphorus metabolism; E11.65 Type 2 diabetes mellitus with hyperglycemia; Z82.5 Family history of asthma and other chronic lower respiratory diseases; Z82.49 Family history of ischemic heart disease and other diseases of the circulatory system; Z79.899 Other long term (current) drug therapy; Z79.84 Long term (current) use of oral hypoglycemic drugs
CPT/HCPCS: 36415; 71045; 76775; 80048; 80053; 81001; 82306; 82570; 82728; 82962; 83036; 83540; 83550; 83735; 83880; 83970; 84100; 84156; 84300; 84484; 85025; 86803; 87340; 93005; 93306; 94640; 96374; 96375; 97110; 97116; 97163; 97530; 99291; G0378; J1815

== ENCOUNTER 2024-11-07 12:42 | Inpatient (IN) | payer OTHER ==
[~2024-11-07] VITALS: Ht 190.5 cm; Wt 77.3 kg
[~2024-11-07 12:42] MED LIST changes: +ARIP2TAB PO; +BUPR-346 PO; -CLIN1CAP70 PO; +EMPA1TAB PO; +ESCI20TA PO; -GABA-1251 PO; +GLIM2TAB33 PO; +GLIP5TAB21 PO; +HYDR-4924 PO; -INSU70IN3 SC; -LEVO500T31 PO; -LISI-287 PO; -PARO-135 PO; +QUET100T47 PO; -ROSU10TA64 PO; +TEMA15CA2 PO; +TRAZ-181 PO
--- NOTE | 2024-11-07 13:03 | ED.PDOC ---
History of Present Illness HPI Comments 74 y/o M, with a Hx of AFIB, DM, ESRD w/HD M/W/F, HTN, pacemaker, and tobacco use, is BIBA for c/o generalized weakness and failure to thrive, today. Per EMS report, patient's neighbors called on patient behalf after endorsing on having generalized weakness and being unmotivated and unable to performed day-to-day tasks for the past 2x months. Patient is stated to live alone and last received dialysis on 11/04/24. He denies having any chest pain, fever, chills, or other associated symptoms or modifiers at this time. Chief Complaint: General Weakness Time Seen by MD: 12:50 Primary Care Provider: Roger Reviewed Notes: Nurses Notes, Director Cloud Transformation Notes, Medications, Allergies Allergies: Coded Allergies: NO KNOWN ALLERGIES (Unverified , 11/10/21) Home Meds Reported Medications Temazepam (Restoril) 15 Mg Cp, 1 CAP PO QPM, #30 CAP 1 Refill 10/27/24 Escitalopram Oxalate (Lexapro) 20 Mg Tab, 20 MG PO DAILY, TAB 10/27/24 Bupropion Hcl (Bupropion Hcl) 100 Mg Tab, 100 MG PO DAILY for 30 Days, MG 10/27/24 Aripiprazole (Abilify) 2 Mg Tab, 2 MG PO QPM, TAB 10/27/24 Hydroxyzine HCl (Hydroxyzine Hydrochloride) 25 Mg Tab, 25 MG PO BID for Anxiety, TAB 09/09/24 Trazodone HCl (Trazodone Hydrochloride) 50 Mg Tab, 100 MG PO QHSP PRN for FOR INSOMNIA, TAB 09/09/24 Glipizide (Glipizide) 5 Mg Tab, 5 MG PO DAILY for 30 Days, MG 09/09/24 Levothyroxine Sodium (Levothyroxine Sodium) 25 Mcg Tab, 25 MCG PO QAM, MCG 02/04/22 Amlodipine Besylate (Amlodipine Besylate) 10 Mg Tab, 1 TAB PO DAILY 02/04/22 Amitriptyline Hcl (Amitriptyline Hcl) 25 Mg Tab, 100 MG PO DAILY for 30 Days, MG 11/12/21 Glimepiride (Glimepiride) 1 Mg Tab, 1 MG PO BID 11/12/21 Information Source: Patient, Emergency Med Personnel Mode of Arrival: EMS Severity: Moderate Timing: Months Duration: Since onset Prehospital treatment: 12 Lead 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, 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 Past Medical History PAST MEDICAL HISTORY: AFIB, DM, ESRD (w/HD M/W/F), HTN Surgical History: Appendectomy, Pacemaker Surgical History (Other): right chest portacatheter Family History Family History: Reviewed,noncontributory to illness, Unknown Social History Smoker: Cigarettes Alcohol: Denies ETOH Use Drugs: Marijuana Lives In: Home, Assisted Care Constitutional: denies: chills, diaphoresis, fatigue, fever, malaise, sweats, weakness, others EENTM: denies: blurred vision, double vision, ear bleeding, ear discharge, ear drainage, ear pain, ear ringing, eye pain, eye redness, hearing loss, mouth pain, mouth swelling, nasal discharge, nose bleeding, nose congestion, nose pain, photophobia, tearing, throat pain, throat swelling, voice changes, others Cardiovascular: denies: chest pain, dizzy spells, diaphoresis, Dyspnea on exertion, edema, irregular heart beat, left arm pain, lightheadedness, palpitations, PND, syncope, others Gastrointestinal: denies: abdomen distended, abdominal pain, blood streaked bowels, constipated, diarrhea, dysphagia, difficulty swallowing, hematemesis, melena, nausea, poor appetite, poor fluid intake, rectal bleeding, rectal pain, vomiting, others Genitourinary: denies: burning, dysuria, flank pain, frequency, hematuria, incontinence, penile discharge, penile sore, pain, testicle pain, testicle swelling, urgency, others Neurological: reports: weakness; denies: dizziness, fainting, headache, left sided numbness, left sided weakness, numbness, paresthesia, pre-existing deficit, right sided numbness, right sided weakness, seizure, speech problems, tingling, tremors, others Musculoskeletal: denies: back pain, gout, joint pain, joint swelling, muscle pain, muscle stiffness, neck pain, others Integumetry: denies: bruises, change in color, change in hair/nails, dryness, laceration, lesions, lumps, rash, wounds, others Allergic/Immunocompromised: denies: Difficulty Healing, Frequent Infections, Hives, Itching, others Hematologic/Lymphatic: denies: anemia, blood clots, easy bleeding, easy bruising, swollen glands, others Endocrine: denies: excessive hunger, excessive sweating, excessive thirst, excessive urination, flushing, intolerance to cold, intolerance to heat, unexplained weight gain, unexplained weight loss, others Psychiatric: denies: anxiety, bipolar disorder, depression, hopeless, panic disorder, schizophrenia, sleepless, suicidal, others Physical Exam General Appearance: Moderate Distress HEENT: Normal ENT Inspection, Pharynx Normal, TMs Normal Neck: Full Range of Motion, Non-Tender, Normal, Normal Inspection Respiratory: Chest Non-Tender, Lungs Clear, No Accessory Muscle Use, No Respiratory Distress, Normal Breath Sounds Cardiovascular: No Edema, No JVD, No Murmur, No Gallop, Normal Peripheral Pulses, Regular Rate/Rhythm Breast Exam: Deferred Gastrointestinal: No Organomegaly, Non Tender, No Pulsatile Mass, Normal Bowel Sounds, Soft Genitalia: Deferred Pelvic: Deferred Rectal: Deferred Extremities: No calf tenderness, Normal capillary refill, No pedal edema Musculoskeletal : Apperance: Normal 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 Was a procedure done?: No Differential Dx Considerations may include: failure to thrive, malnutrition, electrolyte imbalance, dehydration X-Ray, Labs, Meds, VS Vital Signs Date Time Temp Pulse Resp B/P (MAP) Pulse Ox O2 Delivery O2 Flow Rate FiO2 11/07/24 20:14 109/56 11/07/24 20:00 74 11/07/24 20:00 80 16 109/56 (73) 99 11/07/24 16:50 70 11/07/24 15:50 70 11/07/24 14:00 97.9 75 16 105/55 (72) 99 97.9 11/07/24 13:12 20 Nasal Cannula* 2 28 11/07/24 12:50 97.9 70 21 126/69 (88) 93 Lab Test 11/07/24 13:38 Range/Units White Blood Count 9.3 4.4-10.8 10^3/uL Red Blood Count 4.46 L 4.5-5.90 10^6/uL Hemoglobin 14.5 13.5-17.5 g/dL Hematocrit 45.1 41.0-53.0 % Mean Corpuscular Volume 101.1 H 80.0-100.0 fL Mean Corpuscular Hemoglobin 32.6 H 28.0-32.0 pg Mean Corpuscular Hemoglobin Concent 32.2 32.0-36.0 g/dL Red Cell Distribution Width 18.6 H 11.8-14.3 % Platelet Count 99 L 140-450 10^3/uL Mean Platelet Volume 10.5 6.9-10.8 fL Neutrophils (%) (Auto) 37.0-80.0 % Lymphocytes (%) (Auto) 10.0-50.0 % Monocytes (%) (Auto) 0.0-12.0 % Basophils (%) (Auto) 0.0-2.0 % Neutrophils # (Auto) 1.6-8.6 10 ^3/uL Lymphocytes # (Auto) 0.4-5.4 10 ^3/uL Monocytes # (Auto) 0-1.3 10 ^3/uL Differential Total Cells Counted 100.0 100 Neutrophils % (Manual) 88 H 37.0-80.0 Band Neutrophils % (Manual) 3 Lymphocytes % (Manual) 6 L 10.0-50.0 Monocytes % (Manual) 3 0-12 Eosinophils % (Manual) 0 0-7 Basophils % (Manual) 0 0.0-2.0 Metamyelocytes % (manual) 0 Myelocytes % (Manual) 0 Promyelocytes % (Manual) 0 Blast Cells % (Manual) 0 Reactive Lymphocytes 0 Platelet Estimate Decreased Sodium Level 138 136-145 mmol/L Potassium Level 3.8 3.5-5.1 mmol/L Chloride Level 104 98-107 mmol/L Carbon Dioxide Level 22 20-31 mmol/L Anion Gap 12 5-15 Blood Urea Nitrogen 22 9-23 mg/dL Creatinine 4.42 H 0.700-1.30 mg/dL Glomerular Filtration Rate Calc 13 >90 mL/min BUN/Creatinine Ratio 5.0 L 10.0-20.0 Serum Glucose 203 H 74-106 mg/dL Calcium Level 9.1 8.7-10.4 mg/dL Current Medications Medications (Trade) Dose Ordered Sig/Jared Route Start Time Stop Time Status Last Admin Sodium Chloride 500 ml @ 500 mls/hr Q1H ONCE IV 11/07/24 13:15 11/07/24 14:14 DC 11/07/24 13:09 Acetaminophen/ Hydrocodone Bitart ([place] 5/325MG Tab) 1 tab ONCE ONCE PO 11/07/24 15:15 11/07/24 15:16 DC 11/07/24 15:19 Furosemide (Lasix Injection) 40 mg ONCE ONCE IV 11/07/24 16:15 11/07/24 16:16 DC 11/07/24 20:14 The chest x-ray shows: IMPRESSION: Moderate right pleural effusion Cardiomegaly with pulmonary edema The patient was given Lasix 40 mg IV push The patient was also given [place] for the pain. We contacted the choice physician and advise him that the patient would need dialysis secondary to the chest x-ray findings This patient was considered critical Care secondary to interpretation of labs as well as bedside management The patient's creatinine is 4.42 The patient's CBC is within normal limits We have advised the patient that the patient was going to be admitted and the patient will undergo dialysis The patient is admitted at this time Images Reviewed?: Images reviewed and evaluated by me Time of 1ST Reevaluation: 13:20 Reevaluation 1ST: Unchanged Patient Education/Counseling: Diagnosis, Treatment, Prognosis Family Education/Counseling: No Family Present Departure 1 Departure Time of Disposition: 20:34 Impression: Primary Impression: ESRD needing dialysis Additional Impression: Generalized weakness Disposition: ADMITTED INPATIENT Admit to: Med Surg Condition: Fair Critical Care Note Critical Care Time?: Yes (35 min-critical care time only) Stability Stability form required: Yes Unstable for transfer: Telemetry monitoring (Telemetry monitoring required), ED Physician Assesment (Clinical assesment) Heart Score Heart Score: Heart Score Response (Comments) Value History N/A 0 EKG N/A 0 Age N/A 0 Risk Factors N/A 0 Troponin N/A 0 Total 0 I personally scribed for BIRD MONTAÑO MD ([email or web address]) on 11/07/24 at 13:03. Electronically submitted by Juan Rosario [email or web address]). BIRD MONTAÑO MD Nov 07, 2024 13:03
[2024-11-07] MEDS: SODIUM CHLORIDE 0.9% 500 ML IV ONE (13:09)
[2024-11-07 13:12] VITALS: RESP 20
[2024-11-07 13:49] LABS: Hematocrit 45.1 % (41.0-53.0); Hemoglobin 14.5 g/dL (13.5-17.5); Mean Corpuscular Hemoglobin 32.6 pg (28.0-32.0); Mean Corpuscular Hgb Conc. 32.2 g/dL (32.0-36.0); Mean Corpuscular Volume 101.1 fL (80.0-100.0); Platelet Count (auto) 99 10^3/uL (140-450); Red Blood Cells 4.46 10^6/uL (4.5-5.90); Red Cell Distribution Width 18.6 % (11.8-14.3); White Blood Cell 9.3 10^3/uL (4.4-10.8)
[2024-11-07 13:51] LABS: Basophils % (manual) 0 (0.0-2.0); Blast Cells 0; Eosinophils % (manual) 0 (0-7); Metamyelocytes % 0; Myelocytes % 0; Promyelocytes % 0; Reactive Lymphocytes 0
[2024-11-07 13:55] LABS: Chloride 104 mmol/L (98-107); Potassium 3.8 mmol/L (3.5-5.1); Sodium 138 mmol/L (136-145)
[2024-11-07 13:56] LABS: Anion Gap 12 (5-15); Calcium 9.1 mg/dL (8.7-10.4); Carbon Dioxide 22 mmol/L (20-31)
[2024-11-07 14:01] LABS: Blood Urea Nitrogen 22 mg/dL (9-23)
[2024-11-07 14:03] LABS: Glucose 203 mg/dL (74-106)
[2024-11-07] MEDS: HYDROcodone-ACET 5/325MG TAB PO ONE (15:19)
[2024-11-07 15:43] LABS: Band Neutrophils % (manual) 3; Lymphocytes % (manual) 6 (10.0-50.0); Monocytes % (manual) 3 (0-12); Platelet Estimate Decreased
--- NOTE | 2024-11-07 15:43 | DVH ---
CHEST RADIOGRAPH Indication: weakness Technique: Single frontal view of the chest was obtained Comparison: XY CHEST PORTABLE on DOS: 10/24/24, XY CHEST PORTABLE on DOS: 09/08/24, XY CHEST PORTABLE on DOS: 11/19/23, CHEST PORTABLE on DOS: 11/22/22, CXRP on DOS: 11/22/22 FINDINGS: Lines and Tubes: Right hemodialysis catheter tip in the cavoatrial junction Lungs: Bibasilar airspace opacities Pleura: Moderate right pleural effusion No pneumothorax. Cardiomediastinal contours: Cardiomegaly Bones: No acute osseous abnormality. IMPRESSION: Moderate right pleural effusion Cardiomegaly with pulmonary edema
[2024-11-07] MEDS: FUROSEMIDE 40 MG/4 ML VIAL IV ONE (16:15)
--- NOTE | 2024-11-07 19:11 | ECG ---
[facility] Test Date: 2024-11-07 Test Time: 15:50:21 Pat Name: CHARMAINE GUAN Department: ER Room: [address] [place] [address] Gender: M [facility] Sales: JOSE RAUL : 1950 Requested By: BIRD MONTAÑO Order Number: [id number] Reading MD: Reinaldo Ca Measurements Intervals [place] Rate: 70 P: 0 OK: 37 QRS: -67 QRSD: 183 T: 95 QT: 547 QTc: 591 Interpretive Statements Ventricular-paced complexes No further analysis attempted due to paced rhythm Artifact in lead(s) I,II,aVR,aVL,aVF and baseline wander in lead(s) V2 Electronically Signed On 11-08-2024 13:11:48 PST by Reinaldo Ca Please click the below link to view image of tracing.
[2024-11-07] MEDS ORDERED: ACETAMINOPHEN 325 MG TAB PO PRN (20:30)
[2024-11-07] MEDS: HEPARIN SODIUM (PORCINE) 5000 UNITS/ML 1ML VIAL SC SCH (22:19)
[2024-11-07 22:58] VITALS: PULSE 71; RESP 20; O2SAT 94
[2024-11-07] MEDS: HYDROcodone-ACET 5/325MG TAB PO PRN (23:51)
--- NOTE | 2024-11-08 01:04 | DVHHP2 ---
Admitting Diagnosis: right pleural effusion, ESRD on HD, Failure to thrive History of Present Illness History Source: Patient Exam Limitations: No limitations HPI Mr. Nazario Artis is a 74 yo male with a history of AFIB, DM, ESRD w/HD M/W/F, HTN, pacemaker, and tobacco use, presents with a chief complaint of generalized weakness and failure to thrive. Patient is stated to live alone and last received dialysis on 11/04/24. He denies having any chest pain, fever, chills, or other associated symptoms or modifiers at this time. Patient reports he has no appetite and has generalized weakness. Patient is requesting assistance with ADL's and possible SNF placement. Home Meds Reported Medications Quetiapine Fumerate (QUETIAPINE FUMARATE) 100 Mg Tab, 150 MG PO HS for 30 Days, #90 11/08/24 Empagliflozin (Jardiance) 10 Mg Tab, 1 TAB PO DAILY for 30 Days, #30 11/08/24 Glimepiride (Glimepiride) 2 Mg Tab, 1 TAB PO DAILY for 90 Days, #90 11/08/24 Temazepam (Restoril) 15 Mg Cp, 1 CAP PO QPM for 17 Days, #28 10/27/24 Escitalopram Oxalate (Lexapro) 20 Mg Tab, 1 TAB PO DAILY for 30 Days, #30 10/27/24 Bupropion Hcl (Bupropion Hcl) 100 Mg Tab, 1 TAB PO DAILY for 30 Days, #30 10/27/24 Aripiprazole (Abilify) 2 Mg Tab, 1 TAB PO QPM PRN for 30 Days, #30 10/27/24 Hydroxyzine HCl (Hydroxyzine Hydrochloride) 25 Mg Tab, 25 MG PO BID for Anxiety, TAB 09/09/24 Trazodone HCl (Trazodone Hydrochloride) 50 Mg Tab, 100 MG PO QHSP PRN for FOR INSOMNIA, TAB 09/09/24 Glipizide (Glipizide) 5 Mg Tab, 5 MG PO DAILY for 30 Days, MG 09/09/24 Levothyroxine Sodium (Levothyroxine Sodium) 25 Mcg Tab, 25 MCG PO QAM, MCG 02/04/22 Amlodipine Besylate (Amlodipine Besylate) 10 Mg Tab, 1 TAB PO DAILY 02/04/22 Amitriptyline Hcl (Amitriptyline Hcl) 25 Mg Tab, 100 MG PO DAILY for 30 Days, MG 11/12/21 Discontinued Reported Medications Glimepiride (Glimepiride) 1 Mg Tab, 1 MG PO BID 11/12/21 Past Medical History Cardiac: AFIB, HTN Pulmonary: No pertinent Hx Central Nervous System: No pertinent Hx GI: No pertinent Hx Hemotology/Oncology: No pertinent Hx Hepatobiliary: No pertinent Hx Psychiatric: No pertinent Hx Musculoskeletal: No pertinent Hx Rheumotologic: No pertinent Hx Infectious Disease: No peritnent Hx ENT: No pertinent Hx Renal/: ESRD HD/PD Endocrine: NIDDM Dermatology: No pertinent Hx Past Surgical History: Pacemaker Patient Family History: Cardiovascular disease G8 FATHER, ([place]) Chronic obstructive pulmonary disease G8 SISTER, FH: ovarian cancer G8 MOTHER, Hypertension G8 FATHER, Ischemic heart disease G8 FATHER, Malignant neoplasm of ovary G8 MOTHER, Smoker: No Hx (Negative) Alocohol: None Drugs: None Lives with: Alone Domestic Violence: Neg Review of Systems Constitutional: Weakness (generalized weakness), Other (failure to thrive) Ears, Nose, & Throat: No symptom reported Eyes: No symptom reported Pulmonary/Respiratory: No symptom reported Cardiovascular: No symptom reported Gastrointestinal: No symptom reported Genitourinary: No symptom reported Musculoskeletal: No symptom reported Skin: No symptom reported Psychiatric: No symptom reported Endocrine: No symptom reported Hemotologic/Lymphatic: No symptom reported H&P Exam Vital Signs Vital Signs Date Time Temp Pulse Resp B/P (MAP) Pulse Ox O2 Delivery O2 Flow Rate FiO2 11/08/24 00:00 74 11/08/24 00:00 16 107/65 (79) 98 11/07/24 22:58 Nasal Cannula* 2 28 11/07/24 14:00 97.9 97.9 General Appeara: Thin, Other (appears ill) Head Exam: Normal inspection Neck Exam: Normal inspection, Non-tender, Normal alignment Eye Exam: bilateral eye Normal inspection, bilateral eye PERRL, bilateral eye EOMI Ear Exam: bilateral ear Auricle normal Nasal Exam: Normal inspection Mouth: Normal Inspection Pulmonary/Respiratory: Normal inspection, Normal breath sounds, Chest non- tender, Lungs clear Cardiovascular/Chest: Normal inspection, Regular rate, Normal Rhythm Peripheral Pulses: 2+ dorsalis pedis (R), 2+ dorsalis pedis (L), 2+ Radial (R), 2+ Radial (L) Abdominal Exam: Normal bowel sounds, Soft, No tenderness Rectal Exam: Deferred Back Exam: Normal inspection Male Genital 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 hearing, Normal speech, PERRL Neuro/Mental St: Alert, Oriented Appearance: Disheveled, Other (flat affect) Eye contact/ Speech: Cooperative, Good eye contact, Normal speech Thoughts/Psych: Normal thought pattern Skin Exam: Normal inspection, Normal color, Warm/dry Labs/Xrays Labs Test 11/07/24 13:38 Range/Units White Blood Count 9.3 4.4-10.8 10^3/uL Red Blood Count 4.46 L 4.5-5.90 10^6/uL Hemoglobin 14.5 13.5-17.5 g/dL Hematocrit 45.1 41.0-53.0 % Mean Corpuscular Volume 101.1 H 80.0-100.0 fL Mean Corpuscular Hemoglobin 32.6 H 28.0-32.0 pg Mean Corpuscular Hemoglobin Concent 32.2 32.0-36.0 g/dL Red Cell Distribution Width 18.6 H 11.8-14.3 % Platelet Count 99 L 140-450 10^3/uL Mean Platelet Volume 10.5 6.9-10.8 fL Neutrophils (%) (Auto) 37.0-80.0 % Lymphocytes (%) (Auto) 10.0-50.0 % Monocytes (%) (Auto) 0.0-12.0 % Basophils (%) (Auto) 0.0-2.0 % Neutrophils # (Auto) 1.6-8.6 10 ^3/uL Lymphocytes # (Auto) 0.4-5.4 10 ^3/uL Monocytes # (Auto) 0-1.3 10 ^3/uL Differential Total Cells Counted 100.0 100 Neutrophils % (Manual) 88 H 37.0-80.0 Band Neutrophils % (Manual) 3 Lymphocytes % (Manual) 6 L 10.0-50.0 Monocytes % (Manual) 3 0-12 Eosinophils % (Manual) 0 0-7 Basophils % (Manual) 0 0.0-2.0 Metamyelocytes % (manual) 0 Myelocytes % (Manual) 0 Promyelocytes % (Manual) 0 Blast Cells % (Manual) 0 Reactive Lymphocytes 0 Platelet Estimate Decreased Sodium Level 138 136-145 mmol/L Potassium Level 3.8 3.5-5.1 mmol/L Chloride Level 104 98-107 mmol/L Carbon Dioxide Level 22 20-31 mmol/L Anion Gap 12 5-15 Blood Urea Nitrogen 22 9-23 mg/dL Creatinine 4.42 H 0.700-1.30 mg/dL Glomerular Filtration Rate Calc 13 >90 mL/min BUN/Creatinine Ratio 5.0 L 10.0-20.0 Serum Glucose 203 H 74-106 mg/dL Calcium Level 9.1 8.7-10.4 mg/dL Assessment/Plan Problem List: (1) Pleural effusion, right (2) ESRD needing dialysis (3) Generalized weakness Plan 74 yo male with known history of a fib, DM, ESRD on HD M, W, F, Hypertension, pacemaker presents to the hospital with generalized weakness. Patient found to have 1. Right Pleural Effusion 2. ESRD on HD Patient admitted to telemetry unit Nephrology consultation Pulmonology consultation Fluid Restriction/strict I&O's Fall precautions Social service consultation GI/DVT prophylaxis Dietary consultation Analgesic as needed for pain management Discussed all above with patient who verbalizes agreement and understanding of care plan. All questions were answered. Discussed assessment and care plan with supervising MD. Plan discussed with: Patient, Other Code Visit Code Visit Total Time (mins): 45 Additional Comments Additional Comments Additional Comments Patient was seen and evaluated by me. I agree with this has been of the plan as outlined by my nurse practitioner. JOSEPH DEL CASTILLO Nov 08, 2024 01:04 NAVEEN DAMIAN MD Nov 08, 2024 17:26
[2024-11-08 01:15] LABS: Urine Bacteria FEW /hpf (None Seen); Urine Blood TRACE /uL (Negative); Urine Clarity Clear (Clear); Urine Color Yellow (Yellow); Urine Protein, UAD 3+ (Negative); Urine Specific Gravity 1.019 (1.001-1.035); Urine Squamous Epithelial Cell FEW /hpf (<5); Urine Urobilinogen Normal (Negative); Urine WBC 2 /hpf (0 - 3); Urine pH 5.5 (5.0-9.0)
[2024-11-08] MEDS: MELATONIN 5 MG TAB PO ONE (03:20)
[2024-11-08] MEDS: FUROSEMIDE 40 MG/4 ML VIAL IV SCH (06:00)
[2024-11-08] MEDS: ACCU-CHEK COMFORT CURVE STRIP VI SCH (06:34)
[2024-11-08] MEDS: InsuLIN REG 1unit/0.01ml Soln (100units/ml) SC SCH (06:38)
[2024-11-08 08:00] VITALS: PULSE 70; RESP 15; O2SAT 97
[2024-11-08] MEDS: NOREPINEPHRINE 8 MG/250ML KIT 250 ML IV SCH (09:40)
[2024-11-08] MEDS: NOREPINEPHRINE 8 MG/250ML KIT 250 ML IV ONE (09:44)
--- NOTE | 2024-11-08 10:25 | DVHINCON2 ---
Date of service: Nov 08, 2024 Referring Physician Hospitalist Reason for Consultation End-stage renal disease History of Present Illness 74-year-old white male with past medical history of newly diagnosis end-stage renal disease on hemodialysis approximately less than one month ago. History of diabetes, hypertension, coronary artery disease history of pacemaker, CHF w/ severe valvular heart disease and failure to thrive. Patient presents to the hospital complaining of weakness. Nephrology consulted for maintenance hemodialysis. Patient appears short of breath he is very disheveled. He reports his last hemodialysis was a few days ago Past Medical History as above Allergies: Coded Allergies: NO KNOWN ALLERGIES (Unverified , 11/10/21) Home Meds Reported Medications Temazepam (Restoril) 15 Mg Cp, 1 CAP PO QPM, #30 CAP 1 Refill 10/27/24 Escitalopram Oxalate (Lexapro) 20 Mg Tab, 20 MG PO DAILY, TAB 10/27/24 Bupropion Hcl (Bupropion Hcl) 100 Mg Tab, 100 MG PO DAILY for 30 Days, MG 10/27/24 Aripiprazole (Abilify) 2 Mg Tab, 2 MG PO QPM, TAB 10/27/24 Hydroxyzine HCl (Hydroxyzine Hydrochloride) 25 Mg Tab, 25 MG PO BID for Anxiety, TAB 09/09/24 Trazodone HCl (Trazodone Hydrochloride) 50 Mg Tab, 100 MG PO QHSP PRN for FOR INSOMNIA, TAB 09/09/24 Glipizide (Glipizide) 5 Mg Tab, 5 MG PO DAILY for 30 Days, MG 09/09/24 Levothyroxine Sodium (Levothyroxine Sodium) 25 Mcg Tab, 25 MCG PO QAM, MCG 02/04/22 Amlodipine Besylate (Amlodipine Besylate) 10 Mg Tab, 1 TAB PO DAILY 02/04/22 Amitriptyline Hcl (Amitriptyline Hcl) 25 Mg Tab, 100 MG PO DAILY for 30 Days, MG 11/12/21 Glimepiride (Glimepiride) 1 Mg Tab, 1 MG PO BID 11/12/21 Current Medications Current Medications Medications (Trade) Dose Ordered Sig/Jared Route PRN Reason Start Time Stop Time Status Last Admin Furosemide (Lasix Injection) 40 mg BIDD IV 11/08/24 06:00 Ondansetron HCl (Zofran) 4 mg Q6HPRN PRN IV NAUSEA / VOMITING 11/07/24 20:30 Acetaminophen/ Hydrocodone Bitart ([place] 5/325MG Tab) 1 tab Q6HPRN PRN PO PAIN SCALE 1 THRU 6 11/07/24 20:30 11/08/24 09:05 Acetaminophen (Tylenol Tablet) 650 mg Q6HPRN PRN PO TEMP GREATER THAN 100.4 11/07/24 20:30 Famotidine (Pepcid Tablet) 20 mg Q2D PO 11/08/24 10:00 Heparin Sodium (Porcine) 5,000 units BID SC 11/07/24 22:00 11/07/24 22:19 Morphine Sulfate 2 mg Q6HPRN PRN IV SEVERE PAIN (7-10 PAIN SCALE) 11/08/24 05:00 Diagnostic Test (Pha) (Accu-Chek Comfort Curve T) 1 strip ACHS 11/08/24 07:00 11/08/24 06:34 Insulin Human Regular (InsuLIN R) ACHS SC 11/08/24 07:00 11/08/24 06:38 Dextrose 50 ml UD PRN IV Blood Sugar LESS THAN 60 11/08/24 06:30 Norepinephrine Bitartrate 250 ml @ 3.75 mls/hr Q24H IV 11/08/24 09:30 11/08/24 09:40 Family History: Cardiovascular disease G8 FATHER, ([place]) Chronic obstructive pulmonary disease G8 SISTER, FH: ovarian cancer G8 MOTHER, Hypertension G8 FATHER, Ischemic heart disease G8 FATHER, Malignant neoplasm of ovary G8 MOTHER, Review of Systems Weakness H&P Exam Vital Signs/I&O Vital Sign Date Time Temp Pulse Resp B/P (MAP) Pulse Ox O2 Delivery O2 Flow Rate FiO2 11/08/24 10:00 83 11 76/55 (62) 98 11/08/24 08:00 97.5 97.5 11/08/24 08:00 Nasal Cannula* 2 28 Intake and Output 11/07/24 11/08/24 19:00 07:00 Intake Total 500 ml 630 ml Output Total 30 ml Balance 500 ml 600 ml Intake Oral 630 ml IV Total 500 ml Output Urine Total 30 ml # Voids 1 Physical Exam Elderly white male Appears disheveled Multiple scabs on the anterior chest Right tunneled hemodialysis catheter dressing is dirty No pitting edema Decreased breath sounds left lower base No pitting edema Labs/Diagnostic Data Labs/Diagnostic Data Laboratory Tests Test 11/08/24 05:38 11/08/24 05:20 11/08/24 00:50 11/07/24 13:38 Range/Units POC Glucose 199 H 70-106 mg/dl Vitamin B12 Level 1136 H 211-911 pg/mL Thyroid Stimulating Hormone (TSH) 9.63 H 0.55-4.78 uIU/mL Urine Color Yellow Yellow Urine Clarity Clear Clear Urine pH 5.5 5.0-9.0 Urine Specific [place] 1.019 1.001-1.035 Urine Protein 3+ H Negative Urine Ketones Negative Negative Urine Blood Trace H Negative /uL Urine Nitrite Negative Negative Urine Bilirubin 1+ Negative Urine Urobilinogen Normal Negative mg/dL Urine Leukocyte Esterase Negative Negative /uL Urine RBC <1 0 - 3 /hpf Urine WBC 2 0 - 3 /hpf Urine Squamous Epithelial Cells Few <5 /hpf Urine Bacteria Few H None Seen /hpf Urine Glucose 2+ H Normal mg/dL White Blood Count 9.3 4.4-10.8 10^3/uL Red Blood Count 4.46 L 4.5-5.90 10^6/uL Hemoglobin 14.5 13.5-17.5 g/dL Hematocrit 45.1 41.0-53.0 % Mean Corpuscular Volume 101.1 H 80.0-100.0 fL Mean Corpuscular Hemoglobin 32.6 H 28.0-32.0 pg Mean Corpuscular Hemoglobin Concent 32.2 32.0-36.0 g/dL Red Cell Distribution Width 18.6 H 11.8-14.3 % Platelet Count 99 L 140-450 10^3/uL Mean Platelet Volume 10.5 6.9-10.8 fL Neutrophils (%) (Auto) 37.0-80.0 % Lymphocytes (%) (Auto) 10.0-50.0 % Monocytes (%) (Auto) 0.0-12.0 % Basophils (%) (Auto) 0.0-2.0 % Neutrophils # (Auto) 1.6-8.6 10 ^3/uL Lymphocytes # (Auto) 0.4-5.4 10 ^3/uL Monocytes # (Auto) 0-1.3 10 ^3/uL Differential Total Cells Counted 100.0 100 Neutrophils % (Manual) 88 H 37.0-80.0 Band Neutrophils % (Manual) 3 Lymphocytes % (Manual) 6 L 10.0-50.0 Monocytes % (Manual) 3 0-12 Eosinophils % (Manual) 0 0-7 Basophils % (Manual) 0 0.0-2.0 Metamyelocytes % (manual) 0 Myelocytes % (Manual) 0 Promyelocytes % (Manual) 0 Blast Cells % (Manual) 0 Reactive Lymphocytes 0 Platelet Estimate Decreased Sodium Level 138 136-145 mmol/L Potassium Level 3.8 3.5-5.1 mmol/L Chloride Level 104 98-107 mmol/L Carbon Dioxide Level 22 20-31 mmol/L Anion Gap 12 5-15 Blood Urea Nitrogen 22 9-23 mg/dL Creatinine 4.42 H 0.700-1.30 mg/dL Glomerular Filtration Rate Calc 13 >90 mL/min BUN/Creatinine Ratio 5.0 L 10.0-20.0 Serum Glucose 203 H 74-106 mg/dL Calcium Level 9.1 8.7-10.4 mg/dL Assessment End-stage renal disease on hemodialysis Bradycardia Protein calorie malnutrition Pleural effusion Decompensated heart failure EF 30%, severe mitral regurg and severe tricus reg Hypotension Recommend stabilization of patient's vitals currently hypotensive recommend pressors to maintain mean arterial pressure greater than 65 Recommend cardiology consultation Recommend pulmonary consultation for thoracentesis of large pleural effusion. We will hold hemodialysis treatment at this time until patient is stabilized. trial of dopamine to improve cardiac contractility Plan discussed with: Patient VANESSA KEY MD Nov 08, 2024 10:25
[2024-11-08] MEDS: DOPamine 1600MCG/ML D5W 250 ML IV SCH (10:30)
[2024-11-08] MEDS: FAMOTIDINE 20 MG TAB PO SCH (10:37)
[2024-11-08] MEDS: MORPHINE SULFATE INJ 2 MG/ml SYRG IV PRN (12:12)
--- NOTE | 2024-11-08 14:52 | DVHINCON2 ---
Date of service: Nov 08, [address] Yip Reason for Consultation Acute hypoxic respiratory failure, Pleural effusion, Respiratory distress History of Present Illness 74-year-old man history of atrial fibrillation, diabetes mellitus type 2, end- stage renal disease on hemodialysis, hypertension, status post pacemaker placement, tobacco use who presented with generalized weakness and failure to thrive. Per patient's neighbors, patient was having generalized weakness and noted that he was unmotivated to do daily tasks for the last two months. Patient lives alone. He last received hemodialysis on November 04, 2024. He denies any fever or chills. No chest pain or palpitations. No nausea, vomiting, diarrhea constipation. Chest x-ray was notable for pulmonary edema and moderate right pleural effusion. I was called emergently to the bedside due to patient's shortness of breath. Pulmonary consultation was called due to pleural effusion, acute hypoxic respiratory failure and respiratory distress. Review of systems: 14 point review of systems is negative unless otherwise noted above. Past medical history: Atrial fibrillation, diabetes mellitus type 2, end-stage renal disease on hemodialysis, hypertension Past surgical history: Appendectomy, pacemaker, right chest port a catheter placement Medications: Reviewed Allergies: No known drug allergies. Family history: No family history of premature CAD. No family history of lung disease Social history: Nicotine dependence, active smoker. Marijuana use. No alcohol use. Lives in the assisted care facility. Family History: Cardiovascular disease G8 FATHER, ([place]) Chronic obstructive pulmonary disease G8 SISTER, FH: ovarian cancer G8 MOTHER, Hypertension G8 FATHER, Ischemic heart disease G8 FATHER, Malignant neoplasm of ovary G8 MOTHER, Allergies: Coded Allergies: NO KNOWN ALLERGIES (Unverified , 11/10/21) Home Meds Reported Medications Temazepam (Restoril) 15 Mg Cp, 1 CAP PO QPM, #30 CAP 1 Refill 10/27/24 Escitalopram Oxalate (Lexapro) 20 Mg Tab, 20 MG PO DAILY, TAB 10/27/24 Bupropion Hcl (Bupropion Hcl) 100 Mg Tab, 100 MG PO DAILY for 30 Days, MG 10/27/24 Aripiprazole (Abilify) 2 Mg Tab, 2 MG PO QPM, TAB 10/27/24 Hydroxyzine HCl (Hydroxyzine Hydrochloride) 25 Mg Tab, 25 MG PO BID for Anxiety, TAB 09/09/24 Trazodone HCl (Trazodone Hydrochloride) 50 Mg Tab, 100 MG PO QHSP PRN for FOR INSOMNIA, TAB 09/09/24 Glipizide (Glipizide) 5 Mg Tab, 5 MG PO DAILY for 30 Days, MG 09/09/24 Levothyroxine Sodium (Levothyroxine Sodium) 25 Mcg Tab, 25 MCG PO QAM, MCG 02/04/22 Amlodipine Besylate (Amlodipine Besylate) 10 Mg Tab, 1 TAB PO DAILY 02/04/22 Amitriptyline Hcl (Amitriptyline Hcl) 25 Mg Tab, 100 MG PO DAILY for 30 Days, MG 11/12/21 Glimepiride (Glimepiride) 1 Mg Tab, 1 MG PO BID 11/12/21 Current Medications Current Medications Medications (Trade) Dose Ordered Sig/Jared Route PRN Reason Start Time Stop Time Status Last Admin Furosemide (Lasix Injection) 40 mg BIDD IV 11/08/24 06:00 Ondansetron HCl (Zofran) 4 mg Q6HPRN PRN IV NAUSEA / VOMITING 11/07/24 20:30 Acetaminophen/ Hydrocodone Bitart (Freeman 5/325MG Tab) 1 tab Q6HPRN PRN PO PAIN SCALE 1 THRU 6 11/07/24 20:30 11/08/24 09:05 Acetaminophen (Tylenol Tablet) 650 mg Q6HPRN PRN PO TEMP GREATER THAN 100.4 11/07/24 20:30 Famotidine (Pepcid Tablet) 20 mg Q2D PO 11/08/24 10:00 11/08/24 10:37 Heparin Sodium (Porcine) 5,000 units BID SC 11/07/24 22:00 11/08/24 10:39 Morphine Sulfate 2 mg Q6HPRN PRN IV SEVERE PAIN (7-10 PAIN SCALE) 11/08/24 05:00 11/08/24 12:12 Diagnostic Test (Pha) (Accu-Chek Comfort Curve T) 1 strip ACHS 11/08/24 07:00 11/08/24 11:30 Insulin Human Regular (InsuLIN R) ACHS SC 11/08/24 07:00 11/08/24 06:38 Dextrose 50 ml UD PRN IV Blood Sugar LESS THAN 60 11/08/24 06:30 Norepinephrine Bitartrate 250 ml @ 3.75 mls/hr Q24H IV 11/08/24 09:30 11/08/24 09:40 Dopamine HCl/ Dextrose 250 ml @ 7.022 mls/ hr Q24H IV 11/08/24 10:30 Vital Signs Vital Signs Date Time Temp Pulse Resp B/P (MAP) Pulse Ox O2 Delivery O2 Flow Rate FiO2 11/08/24 14:42 124/76 11/08/24 12:50 70 13 11/08/24 10:00 98 11/08/24 08:00 97.5 97.5 11/08/24 08:00 Nasal Cannula* 2 28 Physical Exam Gen.: Patient lying in bed in mild respiratory distress. On supplemental oxygen.Head: Normocephalic, atraumatic Eyes: EOMI/PERRLA. Ears: Normal hearing. Normal anatomy. Neck/trachea: Trachea midline, supple. Nose: Normal external anatomy. Mouth: Moist mucous membranes. Chest: Right tunneled HD catheter in place. Decreased air entry bilaterally. No wheezing or rhonchi. Dullness to percussion in right lower lung field. Cardio vascular: Positive S1, positive S2. Regular rate and rhythm. Abdomen: Positive bowel sounds in all 4 quadrants. Soft, non-tender, non- distended. : Deferred. Rectal: Deferred Skin: Warm, dry. Extremities: 2+ radial pulses bilaterally. No lower extremity edema. Neuro: Awake, alert, oriented x3. No gross motor or sensory deficits. Cranial nerves II through XII intact. Gait not assessed. Labs/Diagnostic Data Labs Test 11/08/24 11:58 11/08/24 05:20 11/08/24 00:50 11/07/24 13:38 Range/Units POC Glucose 111 H 70-106 mg/dl Vitamin B12 Level 1136 H 211-911 pg/mL Thyroid Stimulating Hormone (TSH) 9.63 H 0.55-4.78 uIU/mL Urine Color Yellow Yellow Urine Clarity Clear Clear Urine pH 5.5 5.0-9.0 Urine Specific [place] 1.019 1.001-1.035 Urine Protein 3+ H Negative Urine Ketones Negative Negative Urine Blood Trace H Negative /uL Urine Nitrite Negative Negative Urine Bilirubin 1+ Negative Urine Urobilinogen Normal Negative mg/dL Urine Leukocyte Esterase Negative Negative /uL Urine RBC <1 0 - 3 /hpf Urine WBC 2 0 - 3 /hpf Urine Squamous Epithelial Cells Few <5 /hpf Urine Bacteria Few H None Seen /hpf Urine Glucose 2+ H Normal mg/dL White Blood Count 9.3 4.4-10.8 10^3/uL Red Blood Count 4.46 L 4.5-5.90 10^6/uL Hemoglobin 14.5 13.5-17.5 g/dL Hematocrit 45.1 41.0-53.0 % Mean Corpuscular Volume 101.1 H 80.0-100.0 fL Mean Corpuscular Hemoglobin 32.6 H 28.0-32.0 pg Mean Corpuscular Hemoglobin Concent 32.2 32.0-36.0 g/dL Red Cell Distribution Width 18.6 H 11.8-14.3 % Platelet Count 99 L 140-450 10^3/uL Mean Platelet Volume 10.5 6.9-10.8 fL Neutrophils (%) (Auto) 37.0-80.0 % Lymphocytes (%) (Auto) 10.0-50.0 % Monocytes (%) (Auto) 0.0-12.0 % Basophils (%) (Auto) 0.0-2.0 % Neutrophils # (Auto) 1.6-8.6 10 ^3/uL Lymphocytes # (Auto) 0.4-5.4 10 ^3/uL Monocytes # (Auto) 0-1.3 10 ^3/uL Differential Total Cells Counted 100.0 100 Neutrophils % (Manual) 88 H 37.0-80.0 Band Neutrophils % (Manual) 3 Lymphocytes % (Manual) 6 L 10.0-50.0 Monocytes % (Manual) 3 0-12 Eosinophils % (Manual) 0 0-7 Basophils % (Manual) 0 0.0-2.0 Metamyelocytes % (manual) 0 Myelocytes % (Manual) 0 Promyelocytes % (Manual) 0 Blast Cells % (Manual) 0 Reactive Lymphocytes 0 Platelet Estimate Decreased Sodium Level 138 136-145 mmol/L Potassium Level 3.8 3.5-5.1 mmol/L Chloride Level 104 98-107 mmol/L Carbon Dioxide Level 22 20-31 mmol/L Anion Gap 12 5-15 Blood Urea Nitrogen 22 9-23 mg/dL Creatinine 4.42 H 0.700-1.30 mg/dL Glomerular Filtration Rate Calc 13 >90 mL/min BUN/Creatinine Ratio 5.0 L 10.0-20.0 Serum Glucose 203 H 74-106 mg/dL Calcium Level 9.1 8.7-10.4 mg/dL Assessment Impression: Acute hypoxic respiratory failure End-stage renal disease on hemodialysis Pleural effusion Atelectasis Pulmonary edema Plan: Chest x-ray imaging report reviewed. Bibasilar airspace opacities. Moderate right pleural effusion. No pneumothorax. Pulmonary edema. I was called emergently to the bedside to evaluate patient due to respiratory distress. Limited chest US demonstrated moderate to large right pleural effusion. Supplemental oxygen 2 LPM via NC keep O2 saturation above 92%. Monitor renal function Monitor ins and outs Monitor electrolytes. Supplement as necessary. Hemodialysis per Nephrology Limited chest ultrasound demonstrated [id number] right pleural effusion. Patient was consented for right thoracentesis. Fluid will be sent for cultures and cytology. GI prophylaxis DVT prophylaxis Condition: Critical Prognosis: Poor given multiple comorbidities. Rest of plan per hospitalist and other consultants. A total of 36 minutes of critical care time was spent reviewing the patient record, examining the patient, making a diagnostic and therapeutic plan, discussing this plan with the medical personnel, following up on diagnostic studies and following the patient for clinical stability excluding any and all procedures. At least 50% of this time was spent in direct, [id number] contact. Thank you Dr. Yip for allowing me to participate in this patient's care. Further recommendations will depend on patient's clinical course. Please do not hesitate to contact me if you have any questions or concerns. This medical document was created using an electronic medical record system with [employer] dictation system. Although this document has been carefully reviewed, there may still be some phonetic and typographical errors. These areas are purely typographical due to imperfections of the software programs, and do not reflect any compromise in the patient's medical care. Plan discussed with: Patient, Other (MATTHEW Aguilar MD, RESIDENTIAL SALES MANAGER) BETH LEMON MD Nov 08, 2024 14:52
--- NOTE | 2024-11-08 14:54 | DVHNC2 ---
Procedure - Ultrasound-guided right thoracentesis procedure note: Physician: Dr Isaac Camp Time out time: 14 30 Patient medications and allergies reviewed. The risks and benefits of the pro cedure and the sedation options and risk were discussed with the patient. All questions were answered and informed consent was obtained. Patient identification and proposed procedure were verified prior to the procedure by the physician, and a nurse in the patient's room. The heart rate, respiratory rate, oxygen saturations, blood pressure, adequacy of pulmonary ventilation, and response to care were monitored throughout the procedure. The physical status of the patient was reassessed after the procedure. Date: November 08, 2024 MATTHEW Aguilar Consent: Consent was obtained from patient prior to procedure. Indication, risks, and benefits were explained at length. Procedure summary: A time out was performed and a chest x-ray was reviewed prior to procedure. The appropriate site was confirmed and marked. My hands were washed immediately prior to the procedure, I wore a surgical cap, mask with protective eyewear, sterile gown and sterile gloves throughout the procedure. The patient was prepped and draped in a sterile manner using chlorhexidine scrub after the appropriate level was percussed and confirmed by ultrasound. 1% lidocaine was used to anesthetize the skin, subcutaneous tissue, superior aspect of the rib periosteum and parietal pleura. A finder needle was then introduced over the superior aspect of the rib to locate the pleural fluid; sero-sanguinous fluid was aspirated. 5 [place] Yueh Thoracentesis needle was then introduced through the skin incision into the pleural space using negative aspiration pressure. The thoracentesis catheter was then threaded without difficulty. 1000 mL's of sero-sanguinous colored fluid were removed without difficulty. The catheter was then removed. No immediate complications were noted during the procedure. A postprocedure chest x-ray is pending at the time of this note. The pleural fluid will be sent for cultures and cytology. Estimated blood loss is less than 5 mL's. CPT: 49357 BETH CAMP MD Nov 08, 2024 14:54
--- NOTE | 2024-11-08 15:13 | DVH ---
CHEST RADIOGRAPH Indication: POST THORACENTESIS Technique: Single frontal view of the chest was obtained Comparison: XY CHEST PORTABLE on DOS: 11/07/24, XY CHEST PORTABLE on DOS: 10/24/24, XY CHEST PORTABLE on DOS: 09/08/24 FINDINGS: Lines and Tubes: Right IJ approach hemodialysis catheter terminating within the proximal right atrium . Left-sided approach dual lead pacemaker terminating within right atrium and right ventricle. Lungs: No focal consolidation. Diffuse interstitial prominence. Lucency of the right lateral mid lung zone with lung markings noted laterally. Left lower lung zone opacification with obscuration of the left hemidiaphragm. Cardiomediastinal contours: Mild cardiomegaly with mild atherosclerotic calcification and uncoiling o f the aorta. Bones: No acute osseous abnormality. Old fracture deformity of right posterior 5th rib. IMPRESSION: Lucency over the right lateral mid lung zone with lung markings laterally which may represent skin fo ld artifact. Given history of thoracentesis. Follow-up imaging is recommended. Small left-sided pleural effusion with associated atelectasis. Pulmonary vascular congestion. Right IJ approach hemodialysis catheter terminating within the proximal right atrium.
--- NOTE | 2024-11-08 16:07 | DVH ---
CHEST RADIOGRAPH Indication: Status post right thoracentesis, rule out pneumothorax Technique: Single frontal view of the chest was obtained Comparison: XY CHEST XRAY 1 VIEW on DOS: 11/08/24, XY CHEST PORTABLE on DOS: 11/07/24, XY CHEST WILMAN BLE on DOS: 10/24/24 FINDINGS: Lines and Tubes: None Lungs: Right internal jugular catheter in place unchanged. Dual-chamber pacemaker in place unchanged. Pleura: No effusion. There is a skin fold noted over the right chest however there appear to be bronchovascular markings d istally to the pleural surface. No pneumothorax. Cardiomediastinal contours: Unremarkable Bones: No acute osseous abnormality. IMPRESSION: 1. No pneumothorax visualized. 2. Skin fold noted over the right chest however there are bronchovascular markings noted distally to the pleural surface.
[2024-11-08 21:03] LABS: Body Fluid Polymorphonuclear 65 % (0-25); Body Fluid Red Blood Cells 27561 CUMM (0-2000); Body Fluid White Blood Cells 215 CUMM (0-200)
[2024-11-08] MEDS: ONDANSETRON HCL 4 MG/2 ML VIAL IV PRN (21:14)
[2024-11-08] MEDS ORDERED: MELATONIN 5 MG TAB PO ONE (22:00)
[2024-11-08 22:56] VITALS: PULSE 74; RESP 16; O2SAT 98
[2024-11-09] VITALS (9 sets, daily range): BP systolic 94–121; BP diastolic 42–58; PULSE 70–76; RESP 15–18; TEMP 96.5–98; O2SAT 90–98
[2024-11-09 07:01] LABS: Anion Gap 13 (5-15); Calcium 8.9 mg/dL (8.7-10.4); Carbon Dioxide 21 mmol/L (20-31); Chloride 101 mmol/L (98-107); Potassium 4.2 mmol/L (3.5-5.1)
[2024-11-09 07:07] LABS: Glucose 77 mg/dL (74-106)
[2024-11-09 07:09] LABS: Blood Urea Nitrogen 31 mg/dL (9-23); Sodium 135 mmol/L (136-145)
[2024-11-09] MEDS ORDERED: VANCOMYCIN PER PHARMACY 0 MG IV SCH (09:15)
[2024-11-09 10:29] LABS: Basophils # (auto) 0 10 ^3/uL (0-0.2); Basophils % (auto) 0.1 % (0.0-2.0); Eosinophils # (auto) 0 10 ^3/uL (0-0.8); Eosinophils % (auto) 0.3 % (0.0-7.0); Hematocrit 46.9 % (41.0-53.0); Lymphocytes # (auto) 0.2 10 ^3/uL (0.4-5.4); Lymphocytes % (auto) 2.3 % (10.0-50.0); Mean Corpuscular Hemoglobin 32.3 pg (28.0-32.0); Mean Corpuscular Volume 100.9 fL (80.0-100.0); Monocytes # (auto) 0.5 10 ^3/uL (0-1.3); Monocytes % (auto) 4.4 % (0.0-12.0); Neutrophils % (auto) 92.9 % (37.0-80.0); Nucleated Red Blood Cells % 0.1 %; Platelet Count (auto) 66 10^3/uL (140-450); Red Blood Cells 4.65 10^6/uL (4.5-5.90); White Blood Cell 10.7 10^3/uL (4.4-10.8)
--- NOTE | 2024-11-09 11:15 | DVHPN2 ---
Progress Note Date Seen: Nov 09, 2024 Medical Necessity Reason Pt with a Central, PICC or Fol: No Subjective Patient reports: No new complaints Other Systems: Patient seen and examined by myself today in follow-up, patient examined hemodialysis, blood pressure stable hemodialysis Objective vital signs Vital Sign Date Time Temp Pulse Resp B/P (MAP) Pulse Ox O2 Delivery O2 Flow Rate FiO2 11/09/24 09:00 98.0 76 17 94/51 (65) 94 98.0 11/09/24 08:00 Nasal Cannula* 2 28 Total Intake and Output 11/08/24 11/08/24 11/09/24 15:00 23:00 07:00 Intake Total 36.6875 ml 5.50 ml 0 ml Balance 36.6875 ml 5.50 ml 0 ml medications Current Medications Medications Dose Ordered Sig/Jared Route Start Time Stop Time Status Last Admin Dose Admin Furosemide 40 mg BIDD IV 11/08/24 06:00 11/08/24 18:57 40 MG Ondansetron HCl 4 mg Q6HPRN PRN IV 11/07/24 20:30 11/08/24 21:14 4 MG Acetaminophen/ Hydrocodone Bitart 1 tab Q6HPRN PRN PO 11/07/24 20:30 11/09/24 02:51 1 TAB Acetaminophen 650 mg Q6HPRN PRN PO 11/07/24 20:30 Famotidine 20 mg Q2D PO 11/08/24 10:00 11/08/24 10:37 20 MG Heparin Sodium (Porcine) 5,000 units BID SC 11/07/24 22:00 11/08/24 22:41 5,000 UNITS Morphine Sulfate 2 mg Q6HPRN PRN IV 11/08/24 05:00 11/08/24 21:16 2 MG Diagnostic Test (Pha) 1 strip ACHS 11/08/24 07:00 11/09/24 07:14 1 STRIP Insulin Human Regular ACHS SC 11/08/24 07:00 11/08/24 06:38 3 UNITS Dextrose 50 ml UD PRN IV 11/08/24 06:30 Dopamine HCl/ Dextrose 250 ml @ 7.022 mls/ hr Q24H IV 11/08/24 10:30 11/09/24 07:16 7.022 MLS/HR Piperacillin Sod/ Tazobactam Sod 50 ml @ 12.5 mls/hr Q12HR IV 11/09/24 10:00 Vancomycin HCl 0 ml @ 0 mls/hr UD IV 11/09/24 09:15 Examination: LUNGS:Normal, CVS:Normal, MSK:Normal laboratory and microbiology Laboratory Tests 11/09/24 10:05 11/09/24 06:17 Test 11/09/24 06:17 Range/Units Serum Glucose 77 # 74-106 mg/dL Problem List/Assessment/Plan Problem List/Assessment/Plan End-stage renal disease on hemodialysis Bradycardia , resolved Protein calorie malnutrition Decompensated heart failure EF 30%, severe mitral regurg and severe tricus reg Hypotension Recommendations Continue with UF 2 L as tolerated Dopamine for blood pressure support Fluid restrictions Renal diet Midodrine 10 mg p.o. t.i.d. We will continue to follow Plan discussed with: Patient Dietary Evaluation Review Comments: when medically feasible, offer a combined CCHO-60 with Renal Standard 2gNa, 3 KCL, low phos diet. Poor appetite can be related to ESRD uremic symdrome; evaluate his eating behavior when possible. Expected Outcomes/Goals: controlled DM, less uremic symptoms, gradual weight gains. ALENA ARRIAGA MD Nov 09, 2024 11:15
[2024-11-09 11:21] LABS: Lactic Acid w/Reflex 2.7 mmol/L (0.4-2.0)
[2024-11-09] MEDS: MIDODRINE HCL 10 MG TAB PO SCH (12:24)
[2024-11-09] MEDS: PIPERACILLIN-TAZOB 2.25GM 50 ML IV SCH (13:05)
[2024-11-09] MEDS: VANCOMYCIN 1.25GM/250ML 250 ML IV ONE (13:07)
--- NOTE | 2024-11-09 13:16 | DVHPN2 ---
Subjective 58-year-old male who initially presented to the hospital with shortness of breaths and generalized weakness found to have acute CHF exacerbation with systolic dysfunction, fluid overload with a end-stage renal disease on hemodialysis. Patient was hypothermic, blood cultures were drawn, broad- spectrum IV antibiotics started Reviewed: Care Plan Changes from previous H/P or p: No Changes Objective Vitals Vital Signs Date Time Temp Pulse Resp B/P (MAP) Pulse Ox O2 Delivery O2 Flow Rate FiO2 11/09/24 09:00 98.0 76 17 94/51 (65) 94 98.0 11/09/24 08:00 Nasal Cannula* 2 28 Intake/Output Intake and Output 11/09/24 07:00 Intake Total 42.1875 ml Balance 42.1875 ml Intake Oral 0 ml IV Total 42.1875 ml Exam HEENT pupils are reactive Neck is supple CV is S1-S2 regular rate and rhythm Respiratory bilateral basal crackles GI positive bowel sound Extremities no edema 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 motor 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 Medications Current Medications Medications Dose Ordered Sig/Jared Route Start Time Stop Time Status Last Admin Dose Admin Ondansetron HCl 4 mg Q6HPRN PRN IV 11/07/24 20:30 11/08/24 21:14 4 MG Acetaminophen/ Hydrocodone Bitart 1 tab Q6HPRN PRN PO 11/07/24 20:30 11/09/24 02:51 1 TAB Acetaminophen 650 mg Q6HPRN PRN PO 11/07/24 20:30 Famotidine 20 mg Q2D PO 11/08/24 10:00 11/08/24 10:37 20 MG Heparin Sodium (Porcine) 5,000 units BID SC 11/07/24 22:00 11/08/24 22:41 5,000 UNITS Morphine Sulfate 2 mg Q6HPRN PRN IV 11/08/24 05:00 11/08/24 21:16 2 MG Diagnostic Test (Pha) 1 strip ACHS 11/08/24 07:00 11/09/24 12:24 1 STRIP Insulin Human Regular ACHS SC 11/08/24 07:00 11/08/24 06:38 3 UNITS Dextrose 50 ml UD PRN IV 11/08/24 06:30 Dopamine HCl/ Dextrose 250 ml @ 7.022 mls/ hr Q24H IV 11/08/24 10:30 11/09/24 07:16 7.022 MLS/HR Piperacillin Sod/ Tazobactam Sod 50 ml @ 12.5 mls/hr Q12HR IV 11/09/24 10:00 11/09/24 13:05 12.5 MLS/HR Vancomycin HCl 0 ml @ 0 mls/hr UD IV 11/09/24 09:15 Midodrine 10 mg TID@0600,1200,1800 PO 11/09/24 12:00 11/09/24 12:24 10 MG Laboratory Results Laboratory Tests 11/09/24 06:17 11/09/24 10:05 Chemistry Test 11/09/24 06:17 Calcium Level 8.9 mg/dL (8.7-10.4) Urinalysis Test 11/08/24 00:50 Urine Color Yellow (Yellow) Urine Clarity Clear (Clear) Urine pH 5.5 (5.0-9.0) Urine Specific [place] 1.019 (1.001-1.035) Urine Protein 3+ (Negative) H Urine Ketones Negative (Negative) Urine Blood Trace /uL (Negative) H Urine Nitrite Negative (Negative) Urine Bilirubin 1+ (Negative) Urine Urobilinogen Normal mg/dL (Negative) Urine Leukocyte Esterase Negative /uL (Negative) Urine RBC <1 /hpf (0 - 3) Urine WBC 2 /hpf (0 - 3) Urine Squamous Epithelial Cells Few /hpf (<5) Urine Bacteria Few /hpf (None Seen) H Urine Glucose 2+ mg/dL (Normal) H Assessment/Plan Assessment/Plan 74-year-old male initially admitted to the hospital with the increasing shortness a breath found to have 1. Acute on chronic hypoxic respiratory failure secondary to underlying acute CHF exacerbation with systolic dysfunction as well as fluid overload with end- stage renal disease on hemodialysis 2. End-stage renal disease on hemodialysis 3. Hypothermia rule out sepsis 4. Adult failure to thrive 5. Severe mitral regurgitation/severe tricuspid regurgitation 6. Cardiomyopathy with EF of 30% -blood cultures x2, broad-spectrum IV antibiotics, 2D echo cardiology consultation, dialysis per renal. Plan discussed with: Patient My Orders Orders - NAVEEN DAMIAN MD Procedure Category Date Status Time Renal DIET 11/08/24 Transmitted Standard(2gna,3gk,Lopho) Dinner Transfer Orders XFER 11/08/24 Transmitted 20:32 Blood Culture CAROL 11/09/24 In Process 07:53 Piperacillin-Tazob PHA 12/25/24 In Process 2.25gm (Zosyn 2.25gm) 10:00 Vancomycin Per PHA 11/09/24 In Process Pharmacy 09:15 Complete Blood Count LAB 11/10/24 Verified 04:00 Creatinine LAB 11/10/24 Verified 04:00 Vancomycin,Random LAB 11/10/24 Verified 04:00 Date of Service: Nov 09, 2024 Billing Provider: NAVEEN DAMIAN MD Common Visit Codes: NOT BILLABLE NAVEEN DAMIAN MD Nov 09, 2024 13:16
--- NOTE | 2024-11-09 22:27 | DVHPN2 ---
Progress Note - Dictate Date Seen: Nov 09, 2024 Medical Necessity Reason Pt with a Central, PICC or Fol: No Subjective Patient seen and examined at bedside. Remains on supplemental oxygen Overnight events reviewed. vital signs Vital Sign Date Time Temp Pulse Resp B/P (MAP) Pulse Ox O2 Delivery O2 Flow Rate FiO2 11/09/24 21:00 97.9 71 17 109/52 (71) 93 97.9 11/09/24 20:00 Nasal Cannula* 2 28 Total Intake and Output 11/08/24 11/08/24 11/09/24 15:00 23:00 07:00 Intake Total 36.6875 ml 5.50 ml 0 ml Balance 36.6875 ml 5.50 ml 0 ml medications Current Medications Medications Dose Ordered Sig/Jared Route Start Time Stop Time Status Last Admin Dose Admin Ondansetron HCl 4 mg Q6HPRN PRN IV 11/07/24 20:30 11/08/24 21:14 4 MG Acetaminophen/ Hydrocodone Bitart 1 tab Q6HPRN PRN PO 11/07/24 20:30 11/09/24 17:56 1 TAB Acetaminophen 650 mg Q6HPRN PRN PO 11/07/24 20:30 Famotidine 20 mg Q2D PO 11/08/24 10:00 11/08/24 10:37 20 MG Heparin Sodium (Porcine) 5,000 units BID SC 11/07/24 22:00 11/09/24 21:19 5,000 UNITS Morphine Sulfate 2 mg Q6HPRN PRN IV 11/08/24 05:00 11/08/24 21:16 2 MG Diagnostic Test (Pha) 1 strip ACHS 11/08/24 07:00 11/09/24 17:45 1 STRIP Insulin Human Regular ACHS SC 11/08/24 07:00 11/08/24 06:38 3 UNITS Dextrose 50 ml UD PRN IV 11/08/24 06:30 Dopamine HCl/ Dextrose 250 ml @ 7.022 mls/ hr Q24H IV 11/08/24 10:30 11/09/24 07:16 7.022 MLS/HR Piperacillin Sod/ Tazobactam Sod 50 ml @ 12.5 mls/hr Q12HR IV 11/09/24 10:00 11/09/24 21:13 12.5 MLS/HR Vancomycin HCl 0 ml @ 0 mls/hr UD IV 11/09/24 09:15 Midodrine 10 mg TID@0600,1200,1800 PO 11/09/24 12:00 11/09/24 17:54 10 MG objective Gen.: Patient lying in bed in no apparent distress. On supplemental oxygen. Head: Normocephalic, atraumatic. Eyes: EOMI/PERRLA. Ears: Normal hearing. Normal anatomy. Neck/trachea: Trachea midline, supple. Nose: Normal external anatomy. Mouth: Moist mucous membranes. Chest: Decreased air entry bilaterally. No wheezing or rhonchi. Cardiovascular: Positive S1, positive S2. Regular rate and rhythm. Abdomen: Positive bowel sounds in all 4 quadrants. Soft, non-tender, non- distended. : Deferred. Rectal: Deferred. Skin: Warm, dry. Intact. Extremities: 2+ radial pulses bilaterally. No lower extremity edema. Neuro: Awake, alert, oriented x3. No gross motor or sensory deficits. Cranial nerves II through XII intact. Gait not assessed. laboratory and microbiology Laboratory Tests 11/09/24 10:05 11/09/24 06:17 Test 11/09/24 06:17 Range/Units Serum Glucose 77 # 74-106 mg/dL Assessment/Plan Impression: Acute hypoxic respiratory failure End-stage renal disease on hemodialysis Pleural effusion, right Atelectasis Pulmonary edema Events: Remains on supplemental oxygen, 2 LPM NC Taper O2 as tolerated S/p right thoracentesis yesterday - 1000 mL sero-sanguinous fluid removed from right pleural space. CXR reviewed, demonstrates no pneumothorax. Hemodialysis per Nephrology Monitor renal function Dopamine drip - renally dosed. Nephrology recs appreciated. Continue antibiotics Incentive spirometry Midodrine. Pain control Avoid oversedation Labs and imaging reviewed. Rest of plan as noted below. Plan: 11/08 - Chest x-ray imaging report reviewed. Bibasilar airspace opacities. Moderate right pleural effusion. No pneumothorax. Pulmonary edema. I was called emergently to the bedside to evaluate patient due to respiratory distress. Limited chest US demonstrated moderate to large right pleural effusion. S/p right thoracentesis - 1000 mL sero-sanguinous fluid removed from right pleural space. Follow up cultures and cytology. Supplemental oxygen keep O2 saturation above 92%. Monitor renal function Monitor ins and outs Monitor electrolytes. Supplement as necessary. Hemodialysis per Nephrology GI prophylaxis DVT prophylaxis Prognosis: Poor given multiple comorbidities. Rest of plan per hospitalist and other consultants. Thank you Dr. Yip for allowing me to participate in this patient's care. Further recommendations will depend on patient's clinical course. Please do not hesitate to contact me if you have any questions or concerns. This medical document was created using an electronic medical record system with [employer] dictation system. Although this document has been carefully reviewed, there may still be some phonetic and typographical errors. These areas are purely typographical due to imperfections of the software programs, and do not reflect any compromise in the patient's medical care. Dietary Evaluation Review Comments: when medically feasible, offer a combined CCHO-60 with Renal Standard 2gNa, 3 KCL, low phos diet. Poor appetite can be related to ESRD uremic symdrome; evaluate his eating behavior when possible. Expected Outcomes/Goals: controlled DM, less uremic symptoms, gradual weight gains. Plan discussed with: Patient, Other (MATTHEW Littlejohn) BETH LEMON MD Nov 09, 2024 22:27
[2024-11-10] VITALS (8 sets, daily range): BP systolic 95–115; BP diastolic 46–64; PULSE 69–70; RESP 17–22; TEMP 96.4–98.2; O2SAT 91–97
[2024-11-10 07:15] LABS: Basophils # (auto) 0 10 ^3/uL (0-0.2); Hemoglobin 15.3 g/dL (13.5-17.5); Lymphocytes # (auto) 0.4 10 ^3/uL (0.4-5.4)
[2024-11-10 07:17] LABS: Basophils % (auto) 0.2 % (0.0-2.0); Eosinophils # (auto) 0.1 10 ^3/uL (0-0.8); Eosinophils % (auto) 0.8 % (0.0-7.0); Hematocrit 46.4 % (41.0-53.0); Lymphocytes % (auto) 4.6 % (10.0-50.0); Mean Corpuscular Hemoglobin 33.1 pg (28.0-32.0); Mean Corpuscular Volume 100.3 fL (80.0-100.0); Monocytes # (auto) 0.8 10 ^3/uL (0-1.3); Monocytes % (auto) 8.5 % (0.0-12.0); Neutrophils # (auto) 7.8 10 ^3/uL (1.6-8.6); Neutrophils % (auto) 85.9 % (37.0-80.0); Platelet Count (auto) 59 10^3/uL (140-450); Red Blood Cells 4.63 10^6/uL (4.5-5.90); Red Cell Distribution Width 18.9 % (11.8-14.3); White Blood Cell 9.1 10^3/uL (4.4-10.8)
--- NOTE | 2024-11-10 13:18 | DVHPN2 ---
Progress Note Date Seen: Nov 10, 2024 Medical Necessity Reason Pt with a Central, PICC or Fol: No Subjective Patient reports: No new complaints Other Systems: Patient seen and examined by myself today in follow-up Objective vital signs Vital Sign Date Time Temp Pulse Resp B/P (MAP) Pulse Ox O2 Delivery O2 Flow Rate FiO2 11/10/24 13:01 97.0 69 20 110/60 (77) 94 97.0 11/10/24 08:10 Nasal Cannula* 3 32 Total Intake and Output 11/09/24 11/09/24 11/10/24 15:00 23:00 07:00 Intake Total 50 ml 154.264 ml 300 ml Output Total 0 ml 0 ml Balance 50 ml 154.264 ml 300 ml medications Current Medications Medications Dose Ordered Sig/Jared Route Start Time Stop Time Status Last Admin Dose Admin Ondansetron HCl 4 mg Q6HPRN PRN IV 11/07/24 20:30 11/08/24 21:14 4 MG Acetaminophen/ Hydrocodone Bitart 1 tab Q6HPRN PRN PO 11/07/24 20:30 11/09/24 17:56 1 TAB Acetaminophen 650 mg Q6HPRN PRN PO 11/07/24 20:30 Famotidine 20 mg Q2D PO 11/08/24 10:00 11/10/24 10:44 20 MG Morphine Sulfate 2 mg Q6HPRN PRN IV 11/08/24 05:00 11/08/24 21:16 2 MG Diagnostic Test (Pha) 1 strip ACHS 11/08/24 07:00 11/10/24 11:44 1 STRIP Insulin Human Regular ACHS SC 11/08/24 07:00 11/10/24 12:35 3 UNITS Dextrose 50 ml UD PRN IV 11/08/24 06:30 Dopamine HCl/ Dextrose 250 ml @ 7.022 mls/ hr Q24H IV 11/08/24 10:30 11/10/24 10:44 7.022 MLS/HR Piperacillin Sod/ Tazobactam Sod 50 ml @ 12.5 mls/hr Q12HR IV 11/09/24 10:00 11/10/24 10:45 12.5 MLS/HR Vancomycin HCl 0 ml @ 0 mls/hr UD IV 11/09/24 09:15 Midodrine 10 mg TID@0600,1200,1800 PO 11/09/24 12:00 11/10/24 12:39 10 MG Examination: LUNGS:Normal, CVS:Normal, MSK:Abnormal laboratory and microbiology Laboratory Tests 11/10/24 05:00 11/09/24 06:17 Test 11/09/24 06:17 Range/Units Serum Glucose 77 # 74-106 mg/dL Microbiology Date/Time Source Procedure Growth Status 11/09/24 10:15 Blood Blood Culture - Preliminary Resulted 11/08/24 16:35 Pleural Fluid Gram Stain - Final Resulted 11/08/24 16:35 Pleural Fluid Body Fluid Culture - Preliminary Resulted Problem List/Assessment/Plan Problem List/Assessment/Plan End-stage renal disease on hemodialysis Bradycardia , resolved Protein calorie malnutrition Decompensated heart failure EF 30%, severe mitral regurg and severe tricus reg Hypotension Recommendations Hemodialysis dialysis tomorrow Dopamine for blood pressure support Fluid restrictions Renal diet Midodrine 10 mg p.o. t.i.d. We will continue to follow Plan discussed with: Patient Dietary Evaluation Review Comments: when medically feasible, offer a combined CCHO-60 with Renal Standard 2gNa, 3 KCL, low phos diet. Poor appetite can be related to ESRD uremic symdrome; evaluate his eating behavior when possible. Expected Outcomes/Goals: controlled DM, less uremic symptoms, gradual weight gains. ALENA ARRIAGA MD Nov 10, 2024 13:18
[2024-11-10] MEDS ORDERED: ALBUMIN 25% 100 ML IV PRN (13:30)
[2024-11-10] MEDS ORDERED: DOPamine 1600MCG/ML D5W 250 ML IV PRN (13:30)
[2024-11-10 15:32] LABS: Magnesium 2.3 mg/dL (1.6-2.6)
[2024-11-10 15:51] LABS: Phosphorus 6.7 mg/dL (2.4-5.1)
--- NOTE | 2024-11-10 16:05 | DVHPN2 ---
Subjective 58-year-old male who initially presented to the hospital with shortness of breaths and generalized weakness found to have acute CHF exacerbation with systolic dysfunction, fluid overload with a end-stage renal disease on hemodialysis. Patient's head right thoracentesis on11/08 Reviewed: Care Plan Changes from previous H/P or p: No Changes Objective Vitals Vital Signs Date Time Temp Pulse Resp B/P (MAP) Pulse Ox O2 Delivery O2 Flow Rate FiO2 11/10/24 13:01 97.0 69 20 110/60 (77) 94 97.0 11/10/24 08:10 Nasal Cannula* 3 32 Intake/Output Intake and Output 11/10/24 07:00 Intake Total 504.264 ml Output Total 0 ml Balance 504.264 ml Intake Oral 370 ml IV Total 134.264 ml Output Urine Total 0 ml Exam HEENT pupils are reactive Neck is supple CV is S1-S2 regular rate and rhythm Respiratory bilateral basal crackles GI positive bowel sound Extremities no edema LE[employer]ER no motor deficit Medications Current Medications Medications Dose Ordered Sig/Jared Route Start Time Stop Time Status Last Admin Dose Admin Ondansetron HCl 4 mg Q6HPRN PRN IV 11/07/24 20:30 11/08/24 21:14 4 MG Acetaminophen/ Hydrocodone Bitart 1 tab Q6HPRN PRN PO 11/07/24 20:30 11/09/24 17:56 1 TAB Acetaminophen 650 mg Q6HPRN PRN PO 11/07/24 20:30 Famotidine 20 mg Q2D PO 11/08/24 10:00 11/10/24 10:44 20 MG Morphine Sulfate 2 mg Q6HPRN PRN IV 11/08/24 05:00 11/08/24 21:16 2 MG Diagnostic Test (Pha) 1 strip ACHS 11/08/24 07:00 11/10/24 11:44 1 STRIP Insulin Human Regular ACHS SC 11/08/24 07:00 11/10/24 12:35 3 UNITS Dextrose 50 ml UD PRN IV 11/08/24 06:30 Dopamine HCl/ Dextrose 250 ml @ 7.022 mls/ hr Q24H IV 11/08/24 10:30 11/10/24 10:44 7.022 MLS/HR Piperacillin Sod/ Tazobactam Sod 50 ml @ 12.5 mls/hr Q12HR IV 11/09/24 10:00 11/10/24 10:45 12.5 MLS/HR Vancomycin HCl 0 ml @ 0 mls/hr UD IV 11/09/24 09:15 Midodrine 10 mg TID@0600,1200,1800 PO 11/09/24 12:00 11/10/24 12:39 10 MG Dopamine HCl/ Dextrose 250 ml @ 14.044 mls/ hr [id number] PRN IV 11/10/24 13:30 Albumin Human 100 ml @ 100 mls/hr Q1HR PRN IV 11/10/24 13:30 11/10/24 15:59 Laboratory Results Laboratory Tests 11/09/24 06:17 11/10/24 05:00 Chemistry Test 11/10/24 05:00 Magnesium Level 2.3 mg/dL (1.6-2.6) Phosphorus Level 6.7 mg/dL (2.4-5.1) H Cardiac Markers Test 11/10/24 05:00 B-Type Natriuretic Peptide 4943.42 pg/mL (0-100) Urinalysis Test 11/08/24 00:50 Urine Color Yellow (Yellow) Urine Clarity Clear (Clear) Urine pH 5.5 (5.0-9.0) Urine Specific [place] 1.019 (1.001-1.035) Urine Protein 3+ (Negative) H Urine Ketones Negative (Negative) Urine Blood Trace /uL (Negative) H Urine Nitrite Negative (Negative) Urine Bilirubin 1+ (Negative) Urine Urobilinogen Normal mg/dL (Negative) Urine Leukocyte Esterase Negative /uL (Negative) Urine RBC <1 /hpf (0 - 3) Urine WBC 2 /hpf (0 - 3) Urine Squamous Epithelial Cells Few /hpf (<5) Urine Bacteria Few /hpf (None Seen) H Urine Glucose 2+ mg/dL (Normal) H Microbiology Microbiology Date/Time Source Procedure Growth Status 11/09/24 10:15 Blood Blood Culture - Preliminary Resulted 11/08/24 16:35 Pleural Fluid Gram Stain - Final Resulted 11/08/24 16:35 Pleural Fluid Body Fluid Culture - Preliminary Resulted Assessment/Plan Assessment/Plan 74-year-old male initially admitted to the hospital with the increasing shortness a breath found to have 1. Acute on chronic hypoxic respiratory failure secondary to underlying acute CHF exacerbation with systolic dysfunction as well as fluid overload with end- stage renal disease on hemodialysis 2. End-stage renal disease on hemodialysis 3. Gram-positive bacteremia 4. Right-sided pleural effusion status post thoracentesis 5. Severe mitral regurgitation/severe tricuspid regurgitation 6. Cardiomyopathy with EF of 30% 7. Adult failure to thrive -2D echo to rule out any endocarditis, broad-spectrum IV antibiotics, cardiology consultation, dialysis per renal. Plan discussed with: Patient My Orders Orders - NAVEEN DAMIAN MD Procedure Category Date Status Time * Infectious Karan- CONS 11/10/24 Transmitted [facility] 14:20 Vancomycin,Random LAB 11/11/24 Verified 05:00 Creatinine LAB 11/11/24 Verified 05:00 Vancomycin Per PAULETTE 11/10/24 In Process [facility]acy [facility] 14:31 Date of Service: Nov 10, 2024 Billing Provider: NAVEEN DAMIAN MD Common Visit Codes: NOT BILLABLE NAVEEN DAMIAN MD Nov 10, 2024 16:05
[2024-11-10] MEDS: VANCOMYCIN 1.25GM/250ML 250 ML IV ONE (16:24)
--- NOTE | 2024-11-10 17:10 | DVHINCON2 ---
Date of service: Nov 10, [address] Yip Reason for Consultation bacteremia History of Present Illness Patient is a 74-year-old male with a history of AFIB, DM, ESRD w/HD M/W/F, HTN, pacemaker, and tobacco use presents to the hospital for the complaint of generalized weakness and failure to thrive. according to documented neighbors reports, patient was having generalized weakness and noted that he was unmotivated to do daily tasks for the last two months. Patient lives alone. He last received hemodialysis on November 04, 2024. Patient is requesting assistance with ADL's and possible SNF placement. Chest x-ray was notable for pulmonary edema and moderate right pleural effusion. Patient underwent right thoracentesis on 11/08 Blood cx 2/2 +ve for GPC in clusters Past Medical History Patient's past medical history is significant for Atrial fibrillation, diabetes mellitus type 2, end-stage renal disease on hemodialysis, hypertension, status post pacemaker placement and tobacco use. Past Surgical History Past surgical history is significant for Appendectomy, pacemaker, right chest port a catheter placement. Family History: Cardiovascular disease G8 FATHER, ([place]) Chronic obstructive pulmonary disease G8 SISTER, FH: ovarian cancer G8 MOTHER, Hypertension G8 FATHER, Ischemic heart disease G8 FATHER, Malignant neoplasm of ovary G8 MOTHER, Social History Nicotine dependence, active smoker. Marijuana use. No alcohol use. Lives in the assisted care facility. Allergies: Coded Allergies: NO KNOWN ALLERGIES (Unverified , 11/10/21) Home Meds Reported Medications Quetiapine Fumerate (QUETIAPINE FUMARATE) 100 Mg Tab, 150 MG PO HS for 30 Days, #90 11/08/24 Empagliflozin (Jardiance) 10 Mg Tab, 1 TAB PO DAILY for 30 Days, #30 24 Glimepiride (Glimepiride) 2 Mg Tab, 1 TAB PO DAILY for 90 Days, #90 24 Temazepam (Restoril) 15 Mg Cp, 1 CAP PO QPM for 17 Days, #28 10/27/24 Escitalopram Oxalate (Lexapro) 20 Mg Tab, 1 TAB PO DAILY for 30 Days, #30 24 Bupropion Hcl (Bupropion Hcl) 100 Mg Tab, 1 TAB PO DAILY for 30 Days, #30 10/27/24 Aripiprazole (Abilify) 2 Mg Tab, 1 TAB PO QPM PRN for 30 Days, #30 10/27/24 Hydroxyzine HCl (Hydroxyzine Hydrochloride) 25 Mg Tab, 25 MG PO BID for Anxiety, TAB 09/09/24 Trazodone HCl (Trazodone Hydrochloride) 50 Mg Tab, 100 MG PO QHSP PRN for FOR INSOMNIA, TAB 09/09/24 Glipizide (Glipizide) 5 Mg Tab, 5 MG PO DAILY for 30 Days, MG 09/09/24 Levothyroxine Sodium (Levothyroxine Sodium) 25 Mcg Tab, 25 MCG PO QAM, MCG 02/04/22 Amlodipine Besylate (Amlodipine Besylate) 10 Mg Tab, 1 TAB PO DAILY 02/04/22 Amitriptyline Hcl (Amitriptyline Hcl) 25 Mg Tab, 100 MG PO DAILY for 30 Days, MG 11/12/21 Discontinued Reported Medications Glimepiride (Glimepiride) 1 Mg Tab, 1 MG PO BID 11/12/21 Current Medications Current Medications Medications (Trade) Dose Ordered Sig/Jared Route PRN Reason Start Time Stop Time Status Last Admin Dopamine HCl/ Dextrose 250 ml @ 14.044 mls/ hr [id number] PRN IV HD to keep SBP > 1oo mmHg 11/10/24 13:30 Albumin Human 100 ml @ 100 mls/hr Q1HR PRN IV HD to keep SBP > 100 11/10/24 13:30 11/10/24 15:59 DC Review of Systems General: Reports generalized weakness. No Fever, chills, night sweats or weight loss HEENT: No Sinus pain, headache, vision changes or sore throat Respiratory: No Cough, dyspnea, sputum production Cardiovascular: No Chest pain, palpitations or leg edema Gastrointestinal: No Nausea, vomiting, diarrhea, abdominal pain Genitourinary: No Dysuria, urinary frequency, hematuria, pelvic pain Skin: No Rashes, ulcers, abscesses, redness or swelling Musculoskeletal: No Joint pain, muscle pain or swelling Neurologic: No Altered mental status, headaches or focal neurological deficits Psychiatric: No Anxiety, depression or confusion Vital Signs Vital Signs Date Time Temp Pulse Resp B/P (MAP) Pulse Ox O2 Delivery O2 Flow Rate FiO2 11/10/24 13:01 97.0 69 20 110/60 (77) 94 97.0 11/10/24 08:10 Nasal Cannula* 3 32 Physical Exam General Appeara: Thin, Other (appears ill) Head Exam: Normal inspection Neck Exam: Normal inspection, Non-tender, Normal alignment Eye Exam: bilateral eye Normal inspection, bilateral eye PERRL, bilateral eye EOMI Ear Exam: bilateral ear Auricle normal Nasal Exam: Normal inspection Mouth: Normal Inspection Pulmonary/Respiratory: Normal inspection, Normal breath sounds, Chest non- tender, Lungs clear Cardiovascular/Chest: Normal inspection, Regular rate, Normal Rhythm Abdominal Exam: Normal bowel sounds, Soft, No tenderness CONTRACTING SPECIALIST Exam: Normal hearing, Normal speech, PERRL Neuro/Mental St: Alert, Oriented Appearance: Disheveled, Other (flat affect) Eye contact/ Speech: Cooperative, Good eye contact, Normal speech Skin Exam: Normal inspection, Normal color, Warm/dry Labs/Diagnostic Data Labs Test 11/10/24 11:30 11/10/24 05:00 11/09/24 14:14 11/09/24 06:17 Range/Units POC Glucose 163 H 70-106 mg/dl White Blood Count 9.1 4.4-10.8 10^3/uL Red Blood Count 4.63 4.5-5.90 10^6/uL Hemoglobin 15.3 13.5-17.5 g/dL Hematocrit 46.4 41.0-53.0 % Mean Corpuscular Volume 100.3 H 80.0-100.0 fL Mean Corpuscular Hemoglobin 33.1 H 28.0-32.0 pg Mean Corpuscular Hemoglobin Concent 33.0 32.0-36.0 g/dL Red Cell Distribution Width 18.9 H 11.8-14.3 % Platelet Count 59 L 140-450 10^3/uL Mean Platelet Volume 10.4 6.9-10.8 fL Neutrophils (%) (Auto) 85.9 H 37.0-80.0 % Lymphocytes (%) (Auto) 4.6 L 10.0-50.0 % Monocytes (%) (Auto) 8.5 0.0-12.0 % Eosinophils (%) (Auto) 0.8 0.0-7.0 % Basophils (%) (Auto) 0.2 0.0-2.0 % Neutrophils # (Auto) 7.8 1.6-8.6 10 ^3/uL Lymphocytes # (Auto) 0.4 0.4-5.4 10 ^3/uL Monocytes # (Auto) 0.8 0-1.3 10 ^3/uL Eosinophils # (Auto) 0.1 0-0.8 10 ^3/uL Basophils # (Auto) 0 0-0.2 10 ^3/uL Nucleated Red Blood Cells 0.0 % Creatinine 5.08 H 0.700-1.30 mg/dL Glomerular Filtration Rate Calc 11 >90 mL/min Phosphorus Level 6.7 H 2.4-5.1 mg/dL Magnesium Level 2.3 1.6-2.6 mg/dL B-Type Natriuretic Peptide 4943.42 0-100 pg/mL Vitamin D 25-Hydroxy 17.5 L 30.0-100 ng/mL Parathyroid Hormone (Intact) 167.0 H 18.4-80.1 pg/mL Random Vancomycin Level 11.0 H 5-10 ug/mL Lactic Acid Level 2.3 *H 0.4-2.0 mmol/L Sodium Level 135 L 136-145 mmol/L Potassium Level 4.2 3.5-5.1 mmol/L Chloride Level 101 98-107 mmol/L Carbon Dioxide Level 21 20-31 mmol/L Anion Gap 13 5-15 Blood Urea Nitrogen 31 H 9-23 mg/dL BUN/Creatinine Ratio 6.0 L 10.0-20.0 Serum Glucose 77 # 74-106 mg/dL Calcium Level 8.9 8.7-10.4 mg/dL Test 11/08/24 16:35 11/08/24 05:20 11/08/24 00:50 11/07/24 13:38 Range/Units Body Fluid Source Pleural fluid Body Fluid pH 8.0 Body Fluid WBC (Manual) 215 H 0-200 CUMM Body Fluid RBC (Manual) 71148 H 0-2000 CUMM Body Fluid Mononuclear Cells 35 % Body Fluid Polymorphonuclear Cells 65 H 0-25 % Vitamin B12 Level 1136 H 211-911 pg/mL Thyroid Stimulating Hormone (TSH) 9.63 H 0.55-4.78 uIU/mL Urine Color Yellow Yellow Urine Clarity Clear Clear Urine pH 5.5 5.0-9.0 Urine Specific [place] 1.019 1.001-1.035 Urine Protein 3+ H Negative Urine Ketones Negative Negative Urine Blood Trace H Negative /uL Urine Nitrite Negative Negative Urine Bilirubin 1+ Negative Urine Urobilinogen Normal Negative mg/dL Urine Leukocyte Esterase Negative Negative /uL Urine RBC <1 0 - 3 /hpf Urine WBC 2 0 - 3 /hpf Urine Squamous Epithelial Cells Few <5 /hpf Urine Bacteria Few H None Seen /hpf Urine Glucose 2+ H Normal mg/dL Differential Total Cells Counted 100.0 100 Neutrophils % (Manual) 88 H 37.0-80.0 Band Neutrophils % (Manual) 3 Lymphocytes % (Manual) 6 L 10.0-50.0 Monocytes % (Manual) 3 0-12 Eosinophils % (Manual) 0 0-7 Basophils % (Manual) 0 0.0-2.0 Metamyelocytes % (manual) 0 Myelocytes % (Manual) 0 Promyelocytes % (Manual) 0 Blast Cells % (Manual) 0 Reactive Lymphocytes 0 Platelet Estimate Decreased Microbiology Date/Time Source Procedure Growth Status 11/09/24 10:15 Blood Blood Culture - Preliminary Resulted 11/08/24 16:35 Pleural Fluid Gram Stain - Final Resulted 11/08/24 16:35 Pleural Fluid Body Fluid Culture - Preliminary Resulted Assessment Patient is a 74-year-old male presents to the hospital with: Bacteremia : GPC in clusters SEpsis lactic acidosis septic shock Right Pleural Effusion Acute hypoxic respiratory failure End stage renal disease, on HD with right IJ catheter Pulmonary edema Bradycardia Decompensated heart failure EF 30%, severe mitral regurg and severe tricus reg pacemaker + Recommendations: Bloodcx shows GPC, Bacteremia in the setting of presence of HD catheter and pacemaker warrants rule out of infection of both follow blood cultures, possibly will need to remove the catheter based on organism need repeat blood cx in 48 hours Continue broad spectrum antibiotics for now need ECHO followed by DARVIN reviewed pleural fluid analysis/ cultures Current Antibiotics: Vancomycin [Started 11/09] Zosyn [Started 11/09] Culture Status: 11/09, Blood culture showed: Gram Positive Cocci in clusters 11/08, Body fluid culture preliminary showed no growth 11/08, Chest x-ray showed: No pneumothorax visualized. Skin fold noted over the right chest however there are bronchovascular markings noted distally to the pleural surface. 11/07, Chest x-ray showed: Moderate right pleural effusion. Cardiomegaly with pulmonary edema. prognosis gaurded Thank you for consult. Plan discussed with: Patient, Other YASMANY CLEMENS MD Nov 10, 2024 17:10
--- NOTE | 2024-11-10 21:15 | DVHPN2 ---
Progress Note - Dictate Date Seen: Nov 10, 2024 Medical Necessity Reason Pt with a Central, PICC or Fol: No Subjective Patient seen and examined at bedside. Remains on supplemental oxygen Overnight events reviewed. vital signs Vital Sign Date Time Temp Pulse Resp B/P (MAP) Pulse Ox O2 Delivery O2 Flow Rate FiO2 11/10/24 21:01 70 20 109/64 (79) 93 11/10/24 20:00 Nasal Cannula* 2 28 11/10/24 17:00 96.4 96.4 Total Intake and Output 11/09/24 11/09/24 11/10/24 15:00 23:00 07:00 Intake Total 50 ml 154.264 ml 300 ml Output Total 0 ml 0 ml Balance 50 ml 154.264 ml 300 ml medications Current Medications Medications Dose Ordered Sig/Jared Route Start Time Stop Time Status Last Admin Dose Admin Ondansetron HCl 4 mg Q6HPRN PRN IV 11/07/24 20:30 11/08/24 21:14 4 MG Acetaminophen/ Hydrocodone Bitart 1 tab Q6HPRN PRN PO 11/07/24 20:30 11/10/24 16:38 1 TAB Acetaminophen 650 mg Q6HPRN PRN PO 11/07/24 20:30 Famotidine 20 mg Q2D PO 11/08/24 10:00 11/10/24 10:44 20 MG Morphine Sulfate 2 mg Q6HPRN PRN IV 11/08/24 05:00 11/08/24 21:16 2 MG Diagnostic Test (Pha) 1 strip ACHS 11/08/24 07:00 11/10/24 11:44 1 STRIP Insulin Human Regular ACHS SC 11/08/24 07:00 11/10/24 12:35 3 UNITS Dextrose 50 ml UD PRN IV 11/08/24 06:30 Piperacillin Sod/ Tazobactam Sod 50 ml @ 12.5 mls/hr Q12HR IV 11/09/24 10:00 11/10/24 10:45 12.5 MLS/HR Vancomycin HCl 0 ml @ 0 mls/hr UD IV 11/09/24 09:15 Midodrine 10 mg TID@0600,1200,1800 PO 11/09/24 12:00 11/10/24 18:43 10 MG Dopamine HCl/ Dextrose 250 ml @ 14.044 mls/ hr [id number] PRN IV 11/10/24 13:30 objective Gen.: Patient lying in bed in no apparent distress. On supplemental oxygen. Head: Normocephalic, atraumatic. Eyes: EOMI/PERRLA. Ears: Normal hearing. Normal anatomy. Neck/trachea: Trachea midline, supple. Nose: Normal external anatomy. Mouth: Moist mucous membranes. Chest: Decreased air entry bilaterally. No wheezing or rhonchi. Cardiovascular: Positive S1, positive S2. Regular rate and rhythm. Abdomen: Positive bowel sounds in all 4 quadrants. Soft, non-tender, non- distended. : Deferred. Rectal: Deferred. Skin: Warm, dry. Intact. Extremities: 2+ radial pulses bilaterally. No lower extremity edema. Neuro: Awake, alert, oriented x3. No gross motor or sensory deficits. Cranial nerves II through XII intact. Gait not assessed. laboratory and microbiology Laboratory Tests 11/10/24 05:00 11/09/24 06:17 Test 11/09/24 06:17 Range/Units Serum Glucose 77 # 74-106 mg/dL Assessment/Plan Impression: Acute hypoxic respiratory failure End-stage renal disease on hemodialysis Pleural effusion, right Atelectasis Pulmonary edema Events: Remains on supplemental oxygen, 2 LPM NC Taper O2 as tolerated Patient desaturates while sleeping. Hemodialysis per Nephrology Monitor renal function On Dopamine drip 2.5 mcg/min, renally dosed. Titrate to keep mean arterial pressure greater than 65 mmHg. Continue antibiotics Continue bronchodilators Incentive spirometry Follow up blood cultures Midodrine. Pain control Avoid oversedation Monitor platelet count; 99 --> 59 K. Stop heparin SC - SCDs for DVT prophylaxis. Labs and imaging reviewed. Rest of plan as noted below. Plan: 11/08 - Chest x-ray imaging report reviewed. Bibasilar airspace opacities. Moderate right pleural effusion. No pneumothorax. Pulmonary edema. I was called emergently to the bedside to evaluate patient due to respiratory distress. Limited chest US demonstrated moderate to large right pleural effusion. S/p right thoracentesis on 11/08/24 - 1000 mL sero-sanguinous fluid removed from right pleural space. Follow up cultures and cytology. Supplemental oxygen keep O2 saturation above 92%. Monitor renal function Monitor ins and outs Monitor electrolytes. Supplement as necessary. Hemodialysis per Nephrology GI prophylaxis DVT prophylaxis w/ SCDs. Prognosis: Poor given multiple comorbidities. Rest of plan per hospitalist and other consultants. Thank you Dr. Yip for allowing me to participate in this patient's care. Further recommendations will depend on patient's clinical course. Please do not hesitate to contact me if you have any questions or concerns. This medical document was created using an electronic medical record system with [employer] dictation system. Although this document has been carefully reviewed, there may still be some phonetic and typographical errors. These areas are purely typographical due to imperfections of the software programs, and do not reflect any compromise in the patient's medical care. Dietary Evaluation Review Comments: when medically feasible, offer a combined CCHO-60 with Renal Standard 2gNa, 3 KCL, low phos diet. Poor appetite can be related to ESRD uremic symdrome; evaluate his eating behavior when possible. Expected Outcomes/Goals: controlled DM, less uremic symptoms, gradual weight gains. Plan discussed with: Patient, Other (MATTHEW iLttlejohn) BETH LEMON MD Nov 10, 2024 21:15
[2024-11-10] MEDS: NITROGLYCERIN 2% OINT 1GM PKG TD ONE (21:56)
[2024-11-11] VITALS (78 sets, daily range): BP systolic 71–153; BP diastolic 21–94; PULSE 67–88; RESP 13–26; TEMP 96.1–100.3; O2SAT 50–100
[2024-11-11] MEDS: DOPamine 1600MCG/ML D5W 250 ML IV SCH (00:18)
[2024-11-11] MEDS: SODIUM CHL 0.9% 1000 ML BAG XX ONE (07:00)
[2024-11-11] MEDS: NOREPINEPHRINE 8 MG/250ML KIT 250 ML IV ONE (07:09)
--- NOTE | 2024-11-11 07:21 | DVH ---
CHEST RADIOGRAPH Indication: sob Technique: Single frontal view of the chest was obtained Comparison: XY CHEST XRAY 1 VIEW on DOS: 11/08/24 FINDINGS: Lines and Tubes: Right hemodialysis catheter with its tip terminating in the right atrium. Dual-chamb er pacemaker with right atrial and ventricular leads. Lungs: Left upper lobe opacities. Right upper lobe opacities. Pleura: No effusion. No pneumothorax. Cardiomediastinal contours: Unremarkable Bones: No acute osseous abnormality. IMPRESSION: 1. Bilateral upper lobe opacities which may represent edema or pneumonia.
[2024-11-11 07:48] LABS: Hematocrit 50.2 % (41.0-53.0); Hemoglobin 15.1 g/dL (13.5-17.5); Mean Corpuscular Hemoglobin 32.5 pg (28.0-32.0); Mean Corpuscular Volume 108.5 fL (80.0-100.0); Platelet Count (auto) 54 10^3/uL (140-450); Red Blood Cells 4.63 10^6/uL (4.5-5.90); Red Cell Distribution Width 19.9 % (11.8-14.3); White Blood Cell 10.7 10^3/uL (4.4-10.8)
[2024-11-11] MEDS: ROCURONIUM 10MG/ML 10ML VIAL IV ONE ×2 (07:59→08:15)
[2024-11-11] MEDS: SUCCINYLCHOLINE CHLORIDE 20 MG/ML 10ML VIAL IV ONE (07:59)
[2024-11-11] MEDS: ETOMIDATE (2MG/ML) 20ML VIAL IV ONE ×3 (07:59→08:51)
[2024-11-11 08:00] LABS: Band Neutrophils % (manual) 0; Basophils % (manual) 0 (0.0-2.0); Blast Cells 0; Eosinophils % (manual) 0 (0-7); Metamyelocytes % 0; Myelocytes % 0; Promyelocytes % 0; Reactive Lymphocytes 0
[2024-11-11] MEDS: NOREPINEPHRINE 8 MG/250ML KIT 250 ML IV SCH (08:00)
[2024-11-11 08:01] LABS: INR 1.56 (0.9-1.15); Partial Thromboplastin Time 41.3 SEC (24.5-34.5)
[2024-11-11] MEDS: SODIUM BICARB 8.4% 50Meq/50ml SYR INJ ONE (08:03)
[2024-11-11] MEDS: SODIUM BICARB 8.4% 50Meq/50ml SYR Vial IV ONE ×3 (08:04→17:16)
[2024-11-11] MEDS: MIDAZOLAM DRIP 50 mg/50mL 50 ML IV ONE (08:11)
[2024-11-11 08:22] LABS: Alanine Aminotransferase 16 U/L (7-40); Alkaline Phosphatase 66 U/L (46-116); Anion Gap 24 (5-15); BUN/Creatinine Ratio 8.5 (10.0-20.0); Calcium 9.2 mg/dL (8.7-10.4); Chloride 98 mmol/L (98-107); Sodium 137 mmol/L (136-145)
[2024-11-11 08:23] LABS: Aspartate Aminotransferase 53 U/L (13-40); Bilirubin, Total 0.8 mg/dL (0.2-1.0); Blood Urea Nitrogen 53 mg/dL (9-23); Carbon Dioxide 15 mmol/L (20-31); Glucose 172 mg/dL (74-106); Total Protein 5.2 g/dL (5.7-8.2)
[2024-11-11] MEDS: MIDAZOLAM DRIP 50 mg/50mL 50 ML IV SCH (08:50)
[2024-11-11 09:01] LABS: Large Platelets FEW; Lymphocytes % (manual) 6 (10.0-50.0); Macrocytosis Slight; Monocytes % (manual) 14 (0-12); Platelet Estimate Decrea
[2024-11-11 10:06] LABS: Protein, Body Fluid 1.2 g/dL (.)
--- NOTE | 2024-11-11 10:12 | DVHNC2 ---
Procedure - ULTRASOUND-GUIDED LEFT INTERNAL JUGULAR CENTRAL VENOUS CANNULATION CPT Codes: 44487 (ultrasound guidance) 70946 (insertion of non-tunneled centrally inserted central venous catheter) 48144 (CXR interpretation) Time out time: 0915 am Emergent procedure. Needed for venous access to administer vaso-active medications. No NOK. 2 physician consent DATE: 11/11/2024 PHYSICIAN: Beth Camp PREOPERATIVE DIAGNOSIS: Septic shock POSTOPERATIVE DIAGNOSIS: Septic shock PROCEDURE PERFORMED: Limited Ultrasound-guided LEFT internal jugular central line placement. ANESTHESIA: 2 mL of 1% lidocaine plain. ESTIMATED BLOOD LOSS: less than 5 mL. SPECIMENS: None. COMPLICATIONS: None. INDICATIONS FOR PROCEDURE: The patient is in need of large bore IV access for administration of fluids, including blood products and vasoactive drugs, possible transvenous cardiac pacing and CVP monitoring for hemodynamic instability. DESCRIPTION OF PROCEDURE IN DETAIL: The patient was lying in the Trendelenburg position with head turned 30 degrees away from the insertion site. The skin was thoroughly sponged with chlorhexidine and allowed to dry. All persons involved were shielded with hair nets, face masks and sterile gowns. With sterile-gloved hands the LEFT neck area was draped with the large disposable sterile field provided in the pre-manufactured kit. The skin and subcutaneous tissues superficial to the LEFT internal jugular vein were anesthetized with 2 mL of 1% lidocaine. The LEFT internal jugular vein was identified on ultrasound from the angle of the mandible down into the supraclavicular fossa using the linear ultrasound probe in the transverse orientation. The carotid artery was identified and avoided utilizing color-flow. The internal jugular vein was then placed in the center of the ultrasound field and compressed for patency. A movement artifact was identified as the needle was advanced through the skin and advanced toward the vessel. A real time hyperechoic signal revealed visualization of vascular needle entry into the lumen as blood was noted to flashback in the syringe. The needle was then held in place while the guide wire was advanced. The needle was then removed. Direct visualization of guide wire location within the vein was noted on ultrasound indicating proper placement and was document in the electronic medical record chart. A skin dilator was advanced over the guidewire and removed, and the triple-lumen catheter was then advanced over the guide wire into proper position. The guide wire was removed and discarded. The ports were aspirated which showed good blood return and then carefully flushed with normal saline. The catheter was stabilized and sutured to the skin with 2-0 silk at 4 anchor points. A sterile bio-patch and dressing was placed over the catheter, including the insertion site. The patient tolerated the procedure well. A chest x-ray was ordered for position confirmation. I reviewed the image immediately after it was taken at bedside. Post-procedure chest x-ray demonstrates the central line in the brachiocephalic near SVC and no evidence of any pneumothorax. An image recording of the procedure accompanies the chart. Of note, unable to fully advance due to pacemaker and dialysis catheter being in place. All ports flushed and able to draw blood. BETH CAMP MD Nov 11, 2024 10:12
--- NOTE | 2024-11-11 10:14 | DVHNC2 ---
Procedure - Right Radial arterial line procedure note Indication: Hemodynamic monitoring, frequent blood ABG draws. Sales Donor Recruitment Representative: Dr. Camp Date: November 11, 2024 Time: 9:50 a.m. Time out time 9:45 a.m.. Consent: Emergent procedure. Medically necessary to obtain ABGs and hemodynamic monitoring. No next of kin available. Two physician consent. Procedure summary: A time-out was performed. My hands were washed immediately prior to the procedure. I wore surgical cap, mask with protective eyewear, sterile gown and sterile gloves throughout the procedure. After an Ammon test was performed to ensure adequate perfusion, the RIGHT wrist was prepped using chlorhexidine scrub and draped in sterile fashion using sterile towels. The radial pulse was identified with the use of ultrasound. The wrist was positioned in the usual fashion. Anesthesia was achieved using 1% lidocaine. Using the radial arterial line kit, needle was inserted into the radial artery using ultrasound guidance. Arterial blood flow was seen to pulsate in the flash chamber. The internal guidewire was advanced easily into the radial artery. The catheter was then advanced over the wire and the needle and wire were withdrawn. The catheter was sutured into place with 1 sutures. A sterile Biopatch and Tegaderm was placed over the catheter at the insertion site. The patient tolerated the procedure without any hemodynamic compromise. At the time of procedure completion, the catheter was connected to the radiation monitor and calibrated. Appropriate waveform and blood pressure tracing was observed. Estimated blood loss is less than 5 mL. CPT: 82073 Arterial line insertion CPT: 89946 US add-on BETH CAMP MD Nov 11, 2024 10:14
--- NOTE | 2024-11-11 10:16 | DVHNC2 ---
Procedure - Bronchoscopy procedure note: Indications: Bilateral lower lobe atelectasis, Possible mucous plugging. Medicines: See AERODYNAMICS TEACHER notes. Complications: None Procedure: Patient medications and allergies reviewed. Emergent procedure. Medically necessary to obtain respiratory culture to guide antibiotic therapy and due to copious secretions via ET tube possibly causing ventilation and oxygenation issues. Patient identification and proposed procedure were verified prior to the procedure by the physician, and a nurse, and the respiratory therapist in ICU room. The heart rate, respiratory rate, oxygen saturations, blood pressure, adequacy of pulmonary ventilation, and response to care were monitored throughout the procedure. The physical status of the patient was reassessed after the procedure. The bronchoscope was introduced through the endotracheal tube and advanced into the trachea bronchial tree of both lungs. The procedure was accomplished without difficulty. The patient tolerated the procedure well. Findings: The trachea is in normal caliber. The elizabeth is sharp. The tracheobronchial tree of the right lung was examined to at least the first subsegmental level. The bronchial mucosa and anatomy in the right lung are normal. There are no endobronchial lesions. There was copious whitish secretions from right main stem bronchus onward throughout R1-R10. Mucous plugging removed from R6-R10 Right middle lobe (RML) Bronchoalveolar lavage (BAL) obtained. RML BAL sent for gram stain and culture, viral culture, fungal culture, and AFB smear and culture. The left upper lobe, lingula, and left lower lobe were examined to at least the first subsegmental level. Bronchial mucosa and anatomy in the left upper lobe and lingula are normal. There were no endobronchial lesions. There was copious whitish secretions from left main stem bronchus onward throughout L1-L10. Mucous plugging removed from L6-L10. There was no active bleeding at the completion of the procedure. Estimated blood loss: Less than 5 mL. Impression: Bilateral lower lobe atelectasis due to mucous plugging Mucous plugging from L6-L10 and R6-10 RML BAL performed Recommendation: Follow-up RML BAL results. Procedure codes: 89183, bronchoscopy, rigid and flexible, including fluoroscopic guidance, one performed; with bronchial endobronchial broncho-alveolar lavage, single or multiple sites BETH LEMON MD Nov 11, 2024 10:16
[2024-11-11 10:20] LABS: Base Excess -20.1 mmol/L (-2.0-3.0)
--- NOTE | 2024-11-11 10:20 | DVH ---
EXAM: XY CHEST XRAY 1 VIEW Indication: s/p intubation, central line placement, bronchoscopy Technique: Single frontal view of the chest was obtained Comparison: XY CHEST PORTABLE on DOS: 11/11/24, XY CHEST XRAY 1 VIEW on DOS: 11/08/24, XY CHEST XRAY 1 VIEW on DOS: 11/08/24, XY CHEST PORTABLE on DOS: 11/07/24, XY CHEST PORTABLE on DOS: 10/24/24 FINDINGS: Lines and Tubes: Endotracheal tube projects 7 cm above level the elizabeth. Right dialysis catheter tip projects over the cavoatrial junction. Cardiac pacemaker projects over left chest wall. Left internal jugular central venous catheter tip projects over the brachiocephalic vein. Lungs: Diffuse interstitial opacities. Pleura: No effusion. No pneumothorax. Cardiomediastinal contours: Cardiomegaly. Bones: No acute osseous abnormality. IMPRESSION: Endotracheal tube projects 7 cm above level the elizabeth. Left internal jugular central venous catheter tip projects over the brachiocephalic vein.
[2024-11-11] MEDS: PIPERACILLIN-TAZOB 3.375GM 100 ML IV SCH (10:26)
--- NOTE | 2024-11-11 10:27 | DVHNC2 ---
Intubation Indication: Respiratory Insufficiency, Altered Mental Status, Airway Protection Prep: Preoxygenation Pretreated with: Sedation (Accommodate 20 mg) Medicated with: Vecuronium (50 mg) Intubation Approach: Orotracheal (8.0 at 22 cm of the left) Informed consent obtained: No Risks/benefits/alt described: No UTO Consent Patient was altered mental status and no family Notes Burt scope use. Intubation attempt x1 with no difficulty. Date of Service: Nov 11, 2024 Billing Provider: JOSEY HOGAN NP Common Visit Codes: PROCEDURE ONLY Procedure Codes: [id number] JOSEY HOGAN NP Nov 11, 2024 10:27
[2024-11-11] MEDS: ALBUMIN 25% 100 ML IV ONE (12:13)
[2024-11-11] MEDS: PHENYLEPHRINE IV 250 ML IV SCH (14:45)
--- NOTE | 2024-11-11 15:17 | DVHPN2 ---
Subjective 58-year-old male who initially presented to the hospital with shortness of breaths and generalized weakness found to have acute CHF exacerbation with systolic dysfunction, fluid overload with a end-stage renal disease on hemodialysis. Patient's had right thoracentesis on11/08. OVERNIGHT EVENTS NOTED. PATIENT BECAME RESTLESS AND DESATURATES TO 80S REQUIRING INTUBATION AND ICU UPGRADE. Reviewed: Care Plan Changes from previous H/P or p: No Changes Objective Vitals Vital Signs Date Time Temp Pulse Resp B/P (MAP) Pulse Ox O2 Delivery O2 Flow Rate FiO2 11/11/24 13:39 26 100 Mechanical Ventilator+ 50 50 11/11/24 13:39 74 11/11/24 13:30 85/45 (58) 11/11/24 12:00 96.9 96.9 11/11/24 08:00 10 Intake/Output Intake and Output 11/11/24 07:00 Intake Total 434.264 ml Output Total 0 ml Balance 434.264 ml Intake Oral 300 ml IV Total 134.264 ml Output Urine Total 0 ml # Voids 1 Exam HEENT pupils are reactive Neck is supple CV is S1-S2 regular rate and rhythm Respiratory bilateral basal crackles GI positive bowel sound Extremities no edema 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 AND SEDATED Medications Current Medications Medications Dose Ordered Sig/Jared Route Start Time Stop Time Status Last Admin Dose Admin Ondansetron HCl 4 mg Q6HPRN PRN IV 11/07/24 20:30 11/08/24 21:14 4 MG Acetaminophen/ Hydrocodone Bitart 1 tab Q6HPRN PRN PO 11/07/24 20:30 11/10/24 16:38 1 TAB Acetaminophen 650 mg Q6HPRN PRN PO 11/07/24 20:30 Famotidine 20 mg Q2D PO 11/08/24 10:00 11/10/24 10:44 20 MG Morphine Sulfate 2 mg Q6HPRN PRN IV 11/08/24 05:00 11/11/24 01:45 2 MG Diagnostic Test (Pha) 1 strip ACHS 11/08/24 07:00 11/11/24 10:41 1 STRIP Insulin Human Regular ACHS SC 11/08/24 07:00 11/10/24 12:35 3 UNITS Dextrose 50 ml UD PRN IV 11/08/24 06:30 Vancomycin HCl 0 ml @ 0 mls/hr UD IV 11/09/24 09:15 Midodrine 10 mg TID@0600,1200,1800 PO 11/09/24 12:00 11/10/24 18:43 10 MG Dopamine HCl/ Dextrose 250 ml @ 7.266 mls/ hr Q24H IV 11/11/24 00:00 11/11/24 00:18 7.266 MLS/HR Midazolam HCl 50 ml @ 1 mls/hr Q24H IV 11/11/24 08:15 11/11/24 08:50 1 MLS/HR Norepinephrine Bitartrate 250 ml @ 3.75 mls/hr Q24H IV 11/11/24 07:00 11/11/24 08:00 3.75 MLS/HR Piperacillin Sod/ Tazobactam Sod 100 ml @ 25 mls/hr Q12HR IV 11/11/24 10:00 11/11/24 10:26 25 MLS/HR Phenylephrine HCl 250 ml @ 30 mls/hr Q8H20M IV 11/11/24 14:45 UNV Laboratory Results Laboratory Tests 11/11/24 07:13 Chemistry Test 11/11/24 07:13 Albumin 3.0 g/dL (3.2-4.8) L Calcium Level 9.2 mg/dL (8.7-10.4) Total Protein 5.2 g/dL (5.7-8.2) L Coagulation Test 11/11/24 07:13 Prothrombin Time 16.0 sec (9.3-11.8) H Prothrombin Time INR 1.56 (0.9-1.15) H Activated Partial Thromboplast Time 41.3 SEC (24.5-34.5) H LFT Test 11/11/24 07:13 Alanine Aminotransferase (ALT) 16 U/L (7-40) Alkaline Phosphatase 66 U/L (46-116) Aspartate Amino Transferase (AST) 53 U/L (13-40) H Total Bilirubin 0.8 mg/dL (0.2-1.0) Urinalysis Test 11/08/24 00:50 Urine Color Yellow (Yellow) Urine Clarity Clear (Clear) Urine pH 5.5 (5.0-9.0) Urine Specific [place] 1.019 (1.001-1.035) Urine Protein 3+ (Negative) H Urine Ketones Negative (Negative) Urine Blood Trace /uL (Negative) H Urine Nitrite Negative (Negative) Urine Bilirubin 1+ (Negative) Urine Urobilinogen Normal mg/dL (Negative) Urine Leukocyte Esterase Negative /uL (Negative) Urine RBC <1 /hpf (0 - 3) Urine WBC 2 /hpf (0 - 3) Urine Squamous Epithelial Cells Few /hpf (<5) Urine Bacteria Few /hpf (None Seen) H Urine Glucose 2+ mg/dL (Normal) H Blood Gas Results Test 11/11/24 10:14 Arterial Blood pH 6.923 (7.350-7.450) FiO2 % 100.0 Microbiology Microbiology Date/Time Source Procedure Growth Status 11/09/24 10:15 Blood Blood Culture - Preliminary Staphylococcus aureus Resulted 11/08/24 16:35 Pleural Fluid Gram Stain - Final Resulted 11/08/24 16:35 Pleural Fluid Body Fluid Culture - Preliminary Resulted Assessment/Plan Assessment/Plan 74-year-old male initially admitted to the hospital with the increasing shortness a breath found to have 1. Acute on chronic hypoxic respiratory failure secondary to underlying acute CHF exacerbation with systolic dysfunction as well as fluid overload with end- stage renal disease on hemodialysis, INTUBATED ON11/11 CURRENTLY ON MECHANICAL VENTILATION 2. End-stage renal disease on hemodialysis 3. Gram-positive bacteremia, REPEAT BLOOD CULTURES ARE STILL POSITIVE 4. Right-sided pleural effusion status post thoracentesis 5. Severe mitral regurgitation/severe tricuspid regurgitation 6. Cardiomyopathy with EF of 30% 7. Adult failure to thrive -2D echo to rule out any endocarditis, broad-spectrum IV antibiotics, cardiology consultation, dialysis per renal. -CONTINUE VENT SUPPORT, DAILY ABG CHEST X-RAY, PATIENT'S MAY NEED DARVIN TO RULE OUT INFECTIVE ENDOCARDITIS. - PER BEDSIDE RN DIFFICULT TO FIND ANY CLOSE RELATIVES OR FAMILY MEMBER. 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 Plan discussed with: Other My Orders Orders - NAVEEN DAMIAN MD Procedure Category Date Status Time Chest Portable XY 11/11/24 Resulted 06:39 Norepinephrine 8 PHA 11/11/24 In Process Mg/250ml Kit 07:00 Piperacillin-Tazob PHA 11/11/24 In Process 3.375gm (Zosyn 3.375g 10:00 Vancomycin Per PAULETTE 11/11/24 In Process Pharmacy Protoc 09:36 Vancomycin,Random LAB 11/12/24 Verified 04:00 * Patient Resource Specialist CONS 11/11/24 Transmitted Consult * Cardiology Consult CONS 11/11/24 Transmitted 14:01 Phenylephrine Iv PHA 11/11/24 Logged (Phenylephrine/Ns) 14:45 Date of Service: Nov 11, 2024 Billing Provider: NAVEEN DAMIAN MD Common Visit Codes: NOT BILLABLE NAVEEN DAMIAN MD Nov 11, 2024 15:17
[2024-11-11 16:12] LABS: Base Excess -10.8 mmol/L (-2.0-3.0)
--- NOTE | 2024-11-11 16:44 | DVHINCON2 ---
Date Seen: Nov 11, [address] Yip Reason for Consultation Sepsis History of Present Illness 74-year-old gentleman with a history of multiple medical problems including diabetes hypertension end-stage renal disease in underlying atrial fibrillation was found to be progressively weak and failure to thrive. He subsequently went into respiratory failure and required ventilatory support. He had positive blood cultures for Staphylococcus a. a request to rule out vegetations/ SBE made. Past Medical History Patient is on a ventilator and little else is known. Most of the history was obtained from the records. As noted previously he does have history of diabetes hypertension end-stage renal disease. Chronic dialysis. Hypertension. He is anuric. Does have a pacemaker and does have a history of chronic tobacco use. Patient lives alone. Noted history of depression diabetes and hypertension as mentioned. Past Surgical History Status post chest Port-A-Cath placement. Hemodialysis catheter placed. Family History: Cardiovascular disease G8 FATHER, (NM) Chronic obstructive pulmonary disease G8 SISTER, FH: ovarian cancer G8 MOTHER, Hypertension G8 FATHER, Ischemic heart disease G8 FATHER, Malignant neoplasm of ovary G8 MOTHER, Allergies: Coded Allergies: NO KNOWN ALLERGIES (Unverified , 11/10/21) Home Meds Reported Medications Quetiapine Fumerate (QUETIAPINE FUMARATE) 100 Mg Tab, 150 MG PO HS for 30 Days, #90 11/08/24 Empagliflozin (Jardiance) 10 Mg Tab, 1 TAB PO DAILY for 30 Days, #30 11/08/24 Glimepiride (Glimepiride) 2 Mg Tab, 1 TAB PO DAILY for 90 Days, #90 24 Temazepam (Restoril) 15 Mg Cp, 1 CAP PO QPM for 17 Days, #28 10/27/24 Escitalopram Oxalate (Lexapro) 20 Mg Tab, 1 TAB PO DAILY for 30 Days, #30 10/27/24 Bupropion Hcl (Bupropion Hcl) 100 Mg Tab, 1 TAB PO DAILY for 30 Days, #30 10/27/24 Aripiprazole (Abilify) 2 Mg Tab, 1 TAB PO QPM PRN for 30 Days, #30 10/27/24 Hydroxyzine HCl (Hydroxyzine Hydrochloride) 25 Mg Tab, 25 MG PO BID for Anxiety, TAB 09/09/24 Trazodone HCl (Trazodone Hydrochloride) 50 Mg Tab, 100 MG PO QHSP PRN for FOR INSOMNIA, TAB 09/09/24 Glipizide (Glipizide) 5 Mg Tab, 5 MG PO DAILY for 30 Days, MG 09/09/24 Levothyroxine Sodium (Levothyroxine Sodium) 25 Mcg Tab, 25 MCG PO QAM, MCG 02/04/22 Amlodipine Besylate (Amlodipine Besylate) 10 Mg Tab, 1 TAB PO DAILY 02/04/22 Amitriptyline Hcl (Amitriptyline Hcl) 25 Mg Tab, 100 MG PO DAILY for 30 Days, MG 11/12/21 Discontinued Reported Medications Glimepiride (Glimepiride) 1 Mg Tab, 1 MG PO BID 11/12/21 Current Medications Current Medications Medications (Trade) Dose Ordered Sig/Jared Route PRN Reason Start Time Stop Time Status Last Admin Dopamine HCl/ Dextrose 250 ml @ 7.266 mls/ hr Q24H IV 11/11/24 00:00 11/11/24 00:18 Midazolam HCl 50 ml @ 1 mls/hr Q24H IV 11/11/24 08:15 11/11/24 08:50 Norepinephrine Bitartrate 250 ml @ 3.75 mls/hr Q24H IV 11/11/24 07:00 11/11/24 08:00 Piperacillin Sod/ Tazobactam Sod 100 ml @ 25 mls/hr Q12HR IV 11/11/24 10:00 11/11/24 10:26 Phenylephrine HCl 250 ml @ 30 mls/hr Q8H20M IV 11/11/24 14:45 Review of Systems Unobtainable. Patient is on a ventilator. Vital Signs Vital Signs Date Time Temp Pulse Resp B/P (MAP) Pulse Ox O2 Delivery O2 Flow Rate FiO2 11/11/24 16:16 70 26 124/50 (74) 97 40 11/11/24 15:32 Mechanical Ventilator+ 11/11/24 15:30 98.2 98.2 11/11/24 08:00 10 Physical Exam Patient is on a ventilator. Unresponsive. Vital signs are as noted. HEENT examination is unremarkable. Bitemporal wasting an ophthalmic. Trachea central neck is supple. Mild jugular distention no bruits. Clear lung dueñas bilaterally. Faint heart sounds. Abdominal examination is unremarkable. Extremities show acrocyanosis. No edema. Neurologically unassessable at this time. Labs/Diagnostic Data Labs Test 11/11/24 16:06 11/11/24 10:39 11/11/24 10:14 11/11/24 07:13 Range/Units Blood Gas Specimen Type Arterial Blood Gas Sample Site Arterial line Blood Gas Patient Temperature 37.0 Arterial Blood Date Drawn [id number] Arterial Blood pH 7.279 L 7.350-7.450 Arterial Blood Partial Pressure CO2 32.0 L 35.0-48.0 mmHg Arterial Blood Partial Pressure O2 195.3 H 83.0-108.0 mmHg Arterial Blood HCO3 14.7 L 21.0-28.0 mmol/L Arterial Blood Oxygen Saturation 99.3 H 94.0-98.0 % Arterial Blood Base Excess -10.8 L -2.0-3.0 mmol/L Arterial Blood Oxyhemoglobin 98.3 H 94.0-98.0 % Arterial Blood Carboxyhemoglobin 0.5 0.5-1.5 % Arterial Blood Methemoglobin 0.5 0.0-1.5 % Ammon Test N/a Blood Gas Total Hemoglobin 15.50 13.5-17.5 g/dL Blood Gas Set Respiration Rate 26.0 Blood Gas Modality Vent - ac FiO2 % 50.0 Blood Gas Tidal Volume 550.0 Blood Gas PEEP or CPAP 5.0 POC Glucose 91 70-106 mg/dl Blood Gas Spontaneous Rate 20 Blood Gas Critical Value Read Back Yes Blood Gas Notified Whom Dr. beckett Blood Gas Notified Time [id number] Blood Gas Notified By White Blood Count 10.7 4.4-10.8 10^3/uL Red Blood Count 4.63 4.5-5.90 10^6/uL Hemoglobin 15.1 13.5-17.5 g/dL Hematocrit 50.2 41.0-53.0 % Mean Corpuscular Volume 108.5 #H 80.0-100.0 fL Mean Corpuscular Hemoglobin 32.5 H 28.0-32.0 pg Mean Corpuscular Hemoglobin Concent 30.0 L 32.0-36.0 g/dL Red Cell Distribution Width 19.9 H 11.8-14.3 % Platelet Count 54 L 140-450 10^3/uL Mean Platelet Volume 10.5 6.9-10.8 fL Neutrophils (%) (Auto) 37.0-80.0 % Lymphocytes (%) (Auto) 10.0-50.0 % Monocytes (%) (Auto) 0.0-12.0 % Basophils (%) (Auto) 0.0-2.0 % Neutrophils # (Auto) 1.6-8.6 10 ^3/uL Lymphocytes # (Auto) 0.4-5.4 10 ^3/uL Monocytes # (Auto) 0-1.3 10 ^3/uL Differential Total Cells Counted 100.0 100 Neutrophils % (Manual) 80 37.0-80.0 Band Neutrophils % (Manual) 0 Lymphocytes % (Manual) 6 L 10.0-50.0 Monocytes % (Manual) 14 H 0-12 Eosinophils % (Manual) 0 0-7 Basophils % (Manual) 0 0.0-2.0 Metamyelocytes % (manual) 0 Myelocytes % (Manual) 0 Promyelocytes % (Manual) 0 Blast Cells % (Manual) 0 Reactive Lymphocytes 0 Platelet Estimate Decrea Large Platelets Few Macrocytosis Slight Prothrombin Time 16.0 H 9.3-11.8 sec Prothrombin Time INR 1.56 H 0.9-1.15 Activated Partial Thromboplast Time 41.3 H 24.5-34.5 SEC Sodium Level 137 136-145 mmol/L Potassium Level 5.0 3.5-5.1 mmol/L Chloride Level 98 98-107 mmol/L Carbon Dioxide Level 15 L 20-31 mmol/L Anion Gap 24 H 5-15 Blood Urea Nitrogen 53 H 9-23 mg/dL Creatinine 6.21 H 0.700-1.30 mg/dL Glomerular Filtration Rate Calc 9 >90 mL/min BUN/Creatinine Ratio 8.5 L 10.0-20.0 Serum Glucose 172 H 74-106 mg/dL Calcium Level 9.2 8.7-10.4 mg/dL Total Bilirubin 0.8 0.2-1.0 mg/dL Aspartate Amino Transferase (AST) 53 H 13-40 U/L Alanine Aminotransferase (ALT) 16 7-40 U/L Alkaline Phosphatase 66 46-116 U/L Ammonia 31 11-32 umol/L Total Protein 5.2 L 5.7-8.2 g/dL Albumin 3.0 L 3.2-4.8 g/dL Random Vancomycin Level 21.4 H 5-10 ug/mL Test 11/10/24 05:00 11/09/24 14:14 11/08/24 16:35 11/08/24 05:20 Range/Units Eosinophils (%) (Auto) 0.8 0.0-7.0 % Eosinophils # (Auto) 0.1 0-0.8 10 ^3/uL Basophils # (Auto) 0 0-0.2 10 ^3/uL Nucleated Red Blood Cells 0.0 % Phosphorus Level 6.7 H 2.4-5.1 mg/dL Magnesium Level 2.3 1.6-2.6 mg/dL B-Type Natriuretic Peptide 4943.42 0-100 pg/mL Vitamin D 25-Hydroxy 17.5 L 30.0-100 ng/mL Parathyroid Hormone (Intact) 167.0 H 18.4-80.1 pg/mL Lactic Acid Level 2.3 *H 0.4-2.0 mmol/L Body Fluid Source Pleural fluid Body Fluid pH 8.0 Body Fluid WBC (Manual) 215 H 0-200 CUMM Body Fluid RBC (Manual) 06985 H 0-2000 CUMM Body Fluid Mononuclear Cells 35 % Body Fluid Polymorphonuclear Cells 65 H 0-25 % Body Fluid Glucose 147 . mg/dL Body Fluid Total Protein 1.2 . g/dL Body Fluid Lactate Dehydrogenase 48 . IU/L Vitamin B12 Level 1136 H 211-911 pg/mL Thyroid Stimulating Hormone (TSH) 9.63 H 0.55-4.78 uIU/mL Test 11/08/24 00:50 Range/Units Urine Color Yellow Yellow Urine Clarity Clear Clear Urine pH 5.5 5.0-9.0 Urine Specific [place] 1.019 1.001-1.035 Urine Protein 3+ H Negative Urine Ketones Negative Negative Urine Blood Trace H Negative /uL Urine Nitrite Negative Negative Urine Bilirubin 1+ Negative Urine Urobilinogen Normal Negative mg/dL Urine Leukocyte Esterase Negative Negative /uL Urine RBC <1 0 - 3 /hpf Urine WBC 2 0 - 3 /hpf Urine Squamous Epithelial Cells Few <5 /hpf Urine Bacteria Few H None Seen /hpf Urine Glucose 2+ H Normal mg/dL Microbiology Date/Time Source Procedure Growth Status 11/09/24 10:15 Blood Blood Culture - Preliminary Staphylococcus aureus Resulted 11/08/24 16:35 Pleural Fluid Gram Stain - Final Resulted 11/08/24 16:35 Pleural Fluid Body Fluid Culture - Preliminary Resulted Echocardiogram reviewed. EF is low at about 25-30% however there appears to be three densities corresponding with possible vegetations along the septum and along the right ventricular pacing lead. These do not appear to be present in recent echocardiogram of last August. These vegetations appear to be new and consistent with subacute bacterial endocarditis and vegetations within the Ventricular lead. Assessment Endocarditis noted with vegetations along the ventricular lead. Corresponding sepsis with associated Staphylococcus aureus. Cardiomyopathy with congestive heart failure and severe mitral and tricuspid insufficiency. End-stage renal disease. Diabetes mellitus. History of hypertension. Plan/Recommendation Patient has an overall poor prognosis. Continue with antibiotics. Lead extraction is not an option at this institution. Patient is very unstable for transfer and likely not to be a candidate for lead extraction at this time. Continue with dialysis and supportive measures. Poor overall prognosis. We will consider DARVIN in a.m.. Plan discussed with: Other Date of Service: Nov 11, 2024 Billing Provider: RINKU VAZQUEZ Sr., MD Cardiology Common Codes: 76850-TBWPIFL INP/OBS CARE (High) RINKU VAZQUEZ Sr., MD Nov 11, 2024 16:44
[2024-11-11] MEDS: fentaNYL Drip 2500mCg/250mlNS 250 ML IV SCH (17:59)
--- NOTE | 2024-11-11 19:14 | DVHPN2 ---
Progress Note - Dictate Date Seen: Nov 11, 2024 Medical Necessity Reason Pt with a Central, PICC or Fol: No Subjective Patient was restless and desaturates to 80 S requiring intubation and ICU upgrade vital signs Vital Sign Date Time Temp Pulse Resp B/P (MAP) Pulse Ox O2 Delivery O2 Flow Rate FiO2 11/11/24 18:33 89/53 11/11/24 18:30 70 22 100 11/11/24 18:14 30 11/11/24 17:36 Mechanical Ventilator+ 11/11/24 17:15 99.5 99.5 11/11/24 08:00 10 Total Intake and Output 11/10/24 11/10/24 11/11/24 15:00 23:00 07:00 Intake Total 300 ml 134.264 ml 0 ml Output Total 0 ml Balance 300 ml 134.264 ml 0 ml medications Current Medications Medications Dose Ordered Sig/Jared Route Start Time Stop Time Status Last Admin Dose Admin Ondansetron HCl 4 mg Q6HPRN PRN IV 11/07/24 20:30 11/08/24 21:14 4 MG Acetaminophen/ Hydrocodone Bitart 1 tab Q6HPRN PRN PO 11/07/24 20:30 11/10/24 16:38 1 TAB Acetaminophen 650 mg Q6HPRN PRN PO 11/07/24 20:30 Famotidine 20 mg Q2D PO 11/08/24 10:00 11/10/24 10:44 20 MG Morphine Sulfate 2 mg Q6HPRN PRN IV 11/08/24 05:00 11/11/24 01:45 2 MG Diagnostic Test (Pha) 1 strip ACHS 11/08/24 07:00 11/11/24 17:02 1 STRIP Insulin Human Regular ACHS SC 11/08/24 07:00 11/10/24 12:35 3 UNITS Dextrose 50 ml UD PRN IV 11/08/24 06:30 Vancomycin HCl 0 ml @ 0 mls/hr UD IV 11/09/24 09:15 Midodrine 10 mg TID@0600,1200,1800 PO 11/09/24 12:00 11/10/24 18:43 10 MG Dopamine HCl/ Dextrose 250 ml @ 7.266 mls/ hr Q24H IV 11/11/24 00:00 11/11/24 00:18 7.266 MLS/HR Midazolam HCl 50 ml @ 1 mls/hr Q24H IV 11/11/24 08:15 11/11/24 08:50 1 MLS/HR Norepinephrine Bitartrate 250 ml @ 3.75 mls/hr Q24H IV 11/11/24 07:00 11/11/24 08:00 3.75 MLS/HR Piperacillin Sod/ Tazobactam Sod 100 ml @ 25 mls/hr Q12HR IV 11/11/24 10:00 11/11/24 10:26 25 MLS/HR Phenylephrine HCl 250 ml @ 30 mls/hr Q8H20M IV 11/11/24 14:45 Fentanyl Citrate 250 ml @ 2.5 mls/hr Q24H IV 11/11/24 17:45 11/11/24 17:59 2.5 MLS/HR objective General Appeara: Thin, Other (appears ill) Head Exam: Normal inspection Neck Exam: Normal inspection, Non-tender, Normal alignment Eye Exam: bilateral eye Normal inspection, bilateral eye PERRL, bilateral eye EOMI Ear Exam: bilateral ear Auricle normal Nasal Exam: Normal inspection Mouth: Normal Inspection Pulmonary/Respiratory: Normal inspection, Normal breath sounds, Chest non- tender, Lungs clear Cardiovascular/Chest: Normal inspection, Regular rate, Normal Rhythm Abdominal Exam: Normal bowel sounds, Soft, No tenderness 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: Normal hearing, Normal speech, PERRL Neuro/Mental St: Alert, Oriented Appearance: Disheveled, Other (flat affect) Eye contact/ Speech: Cooperative, Good eye contact, Normal speech Skin Exam: Normal inspection, Normal color, Warm/dry laboratory and microbiology Laboratory Tests 11/11/24 07:13 Test 11/11/24 07:13 Range/Units Serum Glucose 172 H 74-106 mg/dL Assessment/Plan Patient is a 74-year-old male presents to the hospital with: septic shock Bacteremia : GPC in clusters: SEpsis lactic acidosis septic shock Right Pleural Effusion Acute hypoxic respiratory failure End stage renal disease, on HD with right IJ catheter Pulmonary edema Bradycardia Decompensated heart failure EF 30%, severe mitral regurg and severe tricus reg pacemaker + Recommendations: on pressors patient is intubated and on MV follow ID/ sensitivity Bloodcx shows GPC, Bacteremia in the setting of presence of HD catheter and pacemaker warrants rule out of infection of both follow blood cultures, possibly will need to remove the catheter based on organism need repeat blood cx in 48 hours Continue broad spectrum antibiotics for now need ECHO followed by DARVIN reviewed pleural fluid analysis/ cultures Chest -xray : 11/11 show Bilateral upper lobe opacities which may represent edema or pneumonia. Current Antibiotics: Vancomycin [Started 11/09] Zosyn [Started 11/09] Culture Status: 11/09, Blood culture showed: Gram Positive Cocci in clusters 11/08, Body fluid culture preliminary showed no growth 11/08, Chest x-ray showed: No pneumothorax visualized. Skin fold noted over the right chest however there are bronchovascular markings noted distally to the pleural surface. 11/07, Chest x-ray showed: Moderate right pleural effusion. Cardiomegaly with pulmonary edema. prognosis gaurded crit time 35 minutes spent Thank you for consult. Dietary Evaluation Review Comments: when medically feasible, offer a combined CCHO-60 with Renal Standard 2gNa, 3 KCL, low phos diet. Poor appetite can be related to ESRD uremic symdrome; evaluate his eating behavior when possible. Expected Outcomes/Goals: controlled DM, less uremic symptoms, gradual weight gains. Plan discussed with: Other YASMANY CLEMENS MD Nov 11, 2024 19:14
--- NOTE | 2024-11-11 19:24 | DVHPN2 ---
Progress Note - Dictate Date Seen: Nov 11, 2024 Medical Necessity Reason Pt with a Central, PICC or Fol: No Subjective no acute overnight events vital signs Vital Sign Date Time Temp Pulse Resp B/P (MAP) Pulse Ox O2 Delivery O2 Flow Rate FiO2 11/11/24 19:00 69 20 96/53 (67) 100 11/11/24 18:14 30 11/11/24 17:36 Mechanical Ventilator+ 11/11/24 17:15 99.5 99.5 11/11/24 08:00 10 Total Intake and Output 11/10/24 11/10/24 11/11/24 15:00 23:00 07:00 Intake Total 300 ml 134.264 ml 0 ml Output Total 0 ml Balance 300 ml 134.264 ml 0 ml medications Current Medications Medications Dose Ordered Sig/Jared Route Start Time Stop Time Status Last Admin Dose Admin Ondansetron HCl 4 mg Q6HPRN PRN IV 11/07/24 20:30 11/08/24 21:14 4 MG Acetaminophen/ Hydrocodone Bitart 1 tab Q6HPRN PRN PO 11/07/24 20:30 11/10/24 16:38 1 TAB Acetaminophen 650 mg Q6HPRN PRN PO 11/07/24 20:30 Famotidine 20 mg Q2D PO 11/08/24 10:00 11/10/24 10:44 20 MG Morphine Sulfate 2 mg Q6HPRN PRN IV 11/08/24 05:00 11/11/24 01:45 2 MG Diagnostic Test (Pha) 1 strip ACHS 11/08/24 07:00 11/11/24 17:02 1 STRIP Insulin Human Regular ACHS SC 11/08/24 07:00 11/10/24 12:35 3 UNITS Dextrose 50 ml UD PRN IV 11/08/24 06:30 Vancomycin HCl 0 ml @ 0 mls/hr UD IV 11/09/24 09:15 Midodrine 10 mg TID@0600,1200,1800 PO 11/09/24 12:00 11/10/24 18:43 10 MG Dopamine HCl/ Dextrose 250 ml @ 7.266 mls/ hr Q24H IV 11/11/24 00:00 11/11/24 00:18 7.266 MLS/HR Midazolam HCl 50 ml @ 1 mls/hr Q24H IV 11/11/24 08:15 11/11/24 08:50 1 MLS/HR Norepinephrine Bitartrate 250 ml @ 3.75 mls/hr Q24H IV 11/11/24 07:00 11/11/24 08:00 3.75 MLS/HR Piperacillin Sod/ Tazobactam Sod 100 ml @ 25 mls/hr Q12HR IV 11/11/24 10:00 11/11/24 10:26 25 MLS/HR Phenylephrine HCl 250 ml @ 30 mls/hr Q8H20M IV 11/11/24 14:45 Fentanyl Citrate 250 ml @ 2.5 mls/hr Q24H IV 11/11/24 17:45 11/11/24 17:59 2.5 MLS/HR objective gen: nad lungs: occ ronchi cvs: no rub ext: + edema laboratory and microbiology Laboratory Tests 11/11/24 07:13 Test 11/11/24 07:13 Range/Units Serum Glucose 172 H 74-106 mg/dL Assessment/Plan Problem List/Assessment/Plan End-stage renal disease on hemodialysis Bradycardia , resolved Protein calorie malnutrition Decompensated heart failure EF 30%, severe mitral regurg and severe tricus reg Hypotension Recommendations will repeat bmp in AM daily evaluation for QUALITY CONTROL LEAD Dietary Evaluation Review Comments: when medically feasible, offer a combined CCHO-60 with Renal Standard 2gNa, 3 KCL, low phos diet. Poor appetite can be related to ESRD uremic symdrome; evaluate his eating behavior when possible. Expected Outcomes/Goals: controlled DM, less uremic symptoms, gradual weight gains. Plan discussed with: Other MIKE NARAYAN MD Nov 11, 2024 19:24
--- NOTE | 2024-11-11 20:25 | DVHPN2 ---
Progress Note - Dictate Date Seen: Nov 11, 2024 Medical Necessity Reason Pt with a Central, PICC or Fol: No Subjective Patient seen and examined at bedside. Sedated, intubated on mechanical ventilator. Overnight events reviewed. vital signs Vital Sign Date Time Temp Pulse Resp B/P (MAP) Pulse Ox O2 Delivery O2 Flow Rate FiO2 11/11/24 19:59 71 26 103/55 (71) 93 40 11/11/24 17:36 Mechanical Ventilator+ 11/11/24 17:15 99.5 99.5 11/11/24 08:00 10 Total Intake and Output 11/10/24 11/10/24 11/11/24 15:00 23:00 07:00 Intake Total 300 ml 134.264 ml 0 ml Output Total 0 ml Balance 300 ml 134.264 ml 0 ml medications Current Medications Medications Dose Ordered Sig/Jared Route Start Time Stop Time Status Last Admin Dose Admin Ondansetron HCl 4 mg Q6HPRN PRN IV 11/07/24 20:30 11/08/24 21:14 4 MG Acetaminophen/ Hydrocodone Bitart 1 tab Q6HPRN PRN PO 11/07/24 20:30 11/10/24 16:38 1 TAB Acetaminophen 650 mg Q6HPRN PRN PO 11/07/24 20:30 Famotidine 20 mg Q2D PO 11/08/24 10:00 11/10/24 10:44 20 MG Morphine Sulfate 2 mg Q6HPRN PRN IV 11/08/24 05:00 11/11/24 01:45 2 MG Diagnostic Test (Pha) 1 strip ACHS 11/08/24 07:00 11/11/24 17:02 1 STRIP Insulin Human Regular ACHS SC 11/08/24 07:00 11/10/24 12:35 3 UNITS Dextrose 50 ml UD PRN IV 11/08/24 06:30 Vancomycin HCl 0 ml @ 0 mls/hr UD IV 11/09/24 09:15 Midodrine 10 mg TID@0600,1200,1800 PO 11/09/24 12:00 11/10/24 18:43 10 MG Dopamine HCl/ Dextrose 250 ml @ 7.266 mls/ hr Q24H IV 11/11/24 00:00 11/11/24 00:18 7.266 MLS/HR Midazolam HCl 50 ml @ 1 mls/hr Q24H IV 11/11/24 08:15 11/11/24 08:50 1 MLS/HR Norepinephrine Bitartrate 250 ml @ 3.75 mls/hr Q24H IV 11/11/24 07:00 11/11/24 08:00 3.75 MLS/HR Piperacillin Sod/ Tazobactam Sod 100 ml @ 25 mls/hr Q12HR IV 11/11/24 10:00 11/11/24 10:26 25 MLS/HR Phenylephrine HCl 250 ml @ 30 mls/hr Q8H20M IV 11/11/24 14:45 Fentanyl Citrate 250 ml @ 2.5 mls/hr Q24H IV 11/11/24 17:45 11/11/24 17:59 2.5 MLS/HR objective Gen.: Patient lying in bed in medical ICU. Sedated, intubated on mechanical ventilator. Head: Normocephalic, atraumatic. Eyes: PERRLA. Ears: Normal external anatomy. Throat: Endotracheal tube and orogastric tube in place. Neck: Supple, trachea midline. Chest: Transmitted breath sounds bilaterally. Decreased air entry bilaterally. No wheezing. Bibasilar crackles. Cardiovascular: Positive S1, positive S2. Regular rate and rhythm. Abdomen: Positive bowel sounds in all 4 quadrants. Soft, nontender, nondistended. : [place] in place. Normal external genitalia. Rectal: Deferred. Skin: Warm, dry. Intact. Extremities: 2+ radial pulses bilaterally. No lower extremity edema. Neuro: Sedated. laboratory and microbiology Laboratory Tests 11/11/24 07:13 Test 11/11/24 07:13 Range/Units Serum Glucose 172 H 74-106 mg/dL Assessment/Plan Impression: Acute hypoxic respiratory failure On mechanical ventilator End-stage renal disease on hemodialysis Pleural effusion, right Atelectasis Pulmonary edema Events: Patient was emergently intubated due to respiratory distress. Vent settings; AC mode with RR 20, VT 400, PEEP 5, FiO2 of 100% Emergent central line necessary for administration of pressors. Pt underwent emergent arterial line placement for hemodynamic monitoring and ABGs. Sedated on Versed On Levophed 14 mcg/min, Dopamine 2.5 mcg/min for hemodynamic support Titrate to keep MAP above 65 mmHg/SBP above 90 mmHg. Hemodialysis per Nephrology Monitor renal function ABG notable for acidemia, severe metabolic acidosis 3 amps of bicarb given. Patient underwent emergent bronchoscopy w/ BAL. Copious secretions/mucous plugs throughout R1-R10, L1-L10. RML BAL obtained for cultures Continue antibiotics Continue bronchodilators Incentive spirometry Follow up cultures Follow up cultures from RML BAL. Pain control Avoid oversedation Monitor platelet count; 59 --> 54 K. ABG reviewed, notable for acidemia. Will increase VT to 550 and RR to 26 Obtain repeat ABG in 1 hour. Labs and imaging reviewed. Rest of plan as noted below. Plan: 11/08 - Chest x-ray imaging report reviewed. Bibasilar airspace opacities. Moderate right pleural effusion. No pneumothorax. Pulmonary edema. I was called emergently to the bedside to evaluate patient due to respiratory distress. Limited chest US demonstrated moderate to large right pleural effusion. S/p right thoracentesis on 11/08/24 - 1000 mL sero-sanguinous fluid removed from right pleural space. Follow up cultures and cytology. S/p intubation and placement on mechanical ventilator. Vent settings; AC mode with RR 20 -->26, VT 400 -->550, PEEP 5, FiO2 of 100% Titrate FIO2 to keep O2 saturation above 90%. VAP bundle. Daily ABG and CXR while intubated Sedate for ventilator synchrony On pressors for hemodynamic support Titrate to keep mean arterial pressure greater than 65 mmHg. Monitor renal function Monitor ins and outs Monitor electrolytes. Supplement as necessary. Hemodialysis per Nephrology GI prophylaxis DVT prophylaxis - SCDs. Prognosis: Poor given multiple comorbidities. Condition: Critical Rest of plan per hospitalist and other consultants. A total of 37 minutes of critical care time was spent reviewing the patient record, examining the patient, making a diagnostic and therapeutic plan, discussing this plan with the medical personnel, following up on diagnostic studies and following the patient for clinical stability excluding any and all procedures. At least 50% of this time was spent in direct, [id number] contact. Thank you Dr. Yip for allowing me to participate in this patient's care. Further recommendations will depend on patient's clinical course. Please do not hesitate to contact me if you have any questions or concerns. This medical document was created using an electronic medical record system with [employer] system. Although this document has been carefully reviewed, there may still be some phonetic and typographical errors. These areas are purely typographical due to imperfections of the software programs, and do not reflect any compromise in the patient's medical care. Dietary Evaluation Review Comments: when medically feasible, offer a combined CCHO-60 with Renal Standard 2gNa, 3 KCL, low phos diet. Poor appetite can be related to ESRD uremic symdrome; evaluate his eating behavior when possible. Expected Outcomes/Goals: controlled DM, less uremic symptoms, gradual weight gains. Plan discussed with: Other (MATTHEW Caro) Critical Care Time(min): 37 BETH LEMON MD Nov 11, 2024 20:25
[2024-11-11] MEDS: DEXTROSE (50%) 50ML SYRG IV PRN (22:06)
[2024-11-12] VITALS (112 sets, daily range): BP systolic 83–117; BP diastolic 48–66; PULSE 66–72; RESP 7–27; TEMP 98.2–100; O2SAT 95–100
[2024-11-12 02:24] LABS: Hematocrit 45.3 % (41.0-53.0)
[2024-11-12 02:26] LABS: Hemoglobin 14.5 g/dL (13.5-17.5); Mean Corpuscular Hemoglobin 31.8 pg (28.0-32.0); Mean Corpuscular Volume 99.3 fL (80.0-100.0); Platelet Count (auto) 34 10^3/uL (140-450); Red Blood Cells 4.56 10^6/uL (4.5-5.90); Red Cell Distribution Width 19.3 % (11.8-14.3); White Blood Cell 7.1 10^3/uL (4.4-10.8)
[2024-11-12 02:30] LABS: Basophils % (manual) 0 (0.0-2.0); Blast Cells 0; Eosinophils % (manual) 0 (0-7); Metamyelocytes % 0; Myelocytes % 0; Promyelocytes % 0; Reactive Lymphocytes 0
[2024-11-12 02:38] LABS: Alkaline Phosphatase 94 U/L (46-116)
[2024-11-12 02:39] LABS: Anion Gap 23 (5-15); BUN/Creatinine Ratio 7.8 (10.0-20.0); Calcium 8.7 mg/dL (8.7-10.4); Chloride 100 mmol/L (98-107); Magnesium 2.4 mg/dL (1.6-2.6); Potassium 4.3 mmol/L (3.5-5.1); Sodium 139 mmol/L (136-145)
[2024-11-12 03:04] LABS: Alanine Aminotransferase 493 U/L (7-40); Aspartate Aminotransferase 2047 U/L (13-40); Bilirubin, Total 1.9 mg/dL (0.2-1.0); Blood Urea Nitrogen 37 mg/dL (9-23); Carbon Dioxide 16 mmol/L (20-31); Glucose 129 mg/dL (74-106)
[2024-11-12 03:28] LABS: Band Neutrophils % (manual) 1; Lymphocytes % (manual) 8 (10.0-50.0); Monocytes % (manual) 5 (0-12)
[2024-11-12 03:29] LABS: Ovalocytes FEW; Platelet Estimate Decreased
[2024-11-12] MEDS: ACCU-CHEK COMFORT CURVE STRIP VI SCH (03:55)
[2024-11-12] MEDS: InsuLIN REG 1unit/0.01ml Soln (100units/ml) SC SCH (03:58)
--- NOTE | 2024-11-12 05:29 | DVH ---
CHEST RADIOGRAPH Indication: intubated Technique: Single frontal view of the chest was obtained COMPARISON: XY CHEST XRAY 1 VIEW on DOS: 11/11/24, XY CHEST PORTABLE on DOS: 11/11/24, XY CHEST XRAY 1 VIEW on DOS: 11/08/24, XY CHEST XRAY 1 VIEW on DOS: 11/08/24, XY CHEST PORTABLE on DOS: 11/07/24 FINDINGS: Lines and Tubes: Endotracheal tube, enteric catheter, left and right central venous catheter is in sa tisfactory position. Left chest wall pacemaker. Lungs: Hazy right lung airspace disease. Pleura: No effusion. No pneumothorax. Cardiomediastinal contours: Unremarkable Bones: Unremarkable IMPRESSION: Lines and tubes in satisfactory position. No significant interval change.
[2024-11-12 07:40] LABS: Base Excess -10.4 mmol/L (-2.0-3.0)
[2024-11-12] MEDS: PANTOPRAZOLE 40mg/50ML NS AE 50 ML IV SCH (09:03)
--- NOTE | 2024-11-12 13:55 | DVHOP2 ---
Operative Report - 2 Report Details Date: 11/12/24 Preop Diagnosis: Subacute bacterial endocarditis. Postop Diagnosis: Status post DARVIN. Noted vegetations in right atrium and RV leads. Cardiomyopathy. Severe mitral insufficiency. Severe left ventricular dysfunction. Surgeon: Rinku Ca MD Anesthesiologist: Patient is sedated on ventilatory support Anesthesia: General, Mac Consent: The patientIs unable to give consent. Two physicians signed consent for procedure. Noted Possible complications noted.. These include but are not limited to complications of anesthesia, postoperative infection, incomplete relief of symptoms, recurrence of symptoms, damage to blood vessels, nerves and tendons, deep venous thrombosis, pulmonary embolism and possible need for repeat surgery in the future. Complications: None Estimated Blood Loss: No blood loss Findings: Vegetations noted in right atrium and right ventricular pacing leads Indications for Surgery: Fever and positive blood cultures Name of Procedure Performed Transesophageal echocardiogram Procedure Details Procedure Details: After informed consent obtained by having two physicians sign given patient's inability to sign for himself a transesophageal probe was passed without difficulty. Patient was under heavy sedation and intubated. A transesophageal probe was passed without difficulty. Standard views obtained including transgastric views. Findings: Technically good study. Sinus rhythm. Concentric LVH with biatrial enlargement. 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 Mild sclerosis of the aortic leaflets with adequate excursion. Thickening of the tricuspid leaflets. The pulmonic was not clearly visualized. Left ventricular function is diminished. EF is about 25% with global hypokinesis especially of the interventricular septum. Severe mitral insufficiency noted with mild aortic insufficiency. Tricuspid insufficiency could not be quantified. No pericardial effusion noted. There is thickening and noted vegetations along the atrial and ventricular leads adjacent to the intra-atrial and intraventricular septum. Small pedunculated lesions noted in the atrial lead. Thickening and echogenicity in the septal leads with associated echogenicity of the contiguous structure and junction of the interventricular septum at the AV junction. Can not rule out abscess formation. The atrial appendage and left atrium revealed spontaneous contrast "smoke ". No thrombi noted in the left atrial appendage. No atrial or interventricular septal defects appreciated. Disposition Still a Patient Date of Service: Nov 12, 2024 Billing Provider: RINKU CA Sr., MD Cardiology Common Codes: 69823-[id number] INP/OBS CARE (High) Cardiology Procedure Codes: 57087-GKJ W/IMG DOC INCL PROB ACQ RINKU CA Sr., MD Nov 12, 2024 13:55
--- NOTE | 2024-11-12 14:03 | DVHSR ---
APPROVED REPORT EXAM: Two-dimensional and M-mode echocardiogram with Doppler and color Doppler. Blood Pressure: 129/63 mmHg INDICATION Rule out endocarditis RISK FACTORS Height: 6' 3", Weight: 170 DIMENSIONS LVDd4.8 (3.8-5.7cm)LA (2D)4.1 (1.9-4.0cm)Aortic Root (2.0-3.7cm) LVDs4.2 (2.5-4.0cm)LA (MM) (1.9-4.0cm)Aortic Cusp Exc (1.5-2.0cm) EF (%) 25.0 (55-70%)Rt. Atrium5.0 (1.9-4.0cm)Asc. Aorta cm IVSd1.2 (0.7-1.1cm)RV (D) (1.8-2.4cm) PWd1.2 (0.7-1.1cm) Mitral Valve MitralMitral Stenosis E/A ratio0.02D MVAcm2 Aortic Valve Aortic ValveAortic Stenosis V10.65m/Willi Mean GR.3mmHg V21.10m/Willi Peak GR.5mmHg AI P 1/2 Bejr683.65ms Tricuspid Valve TR Velocity3.00m/s [id number] Conclusion Technically good study. Paced rhythm. Biatrial and biventricular enlargement. Aortic root enlargement. Dilation of the pulmonary arteries and sinuses of Valsalva. Mild aortic sclerosis. There is an abnormal pulmonic valve with a vegetation at the base adjacent to the septum. It appears to be along the track of the ventricular pacing lead. There is also a small flail mobile density in the intra-atrial septum adjacent to the AV junction. There is thickening of the mitral leaflets. Thickening of the pulmonic leaflets. Left ventricular function is diminished. EF is about 20% with akinetic septum and global hypokinesis underlying. There is dova-zk-nkyzmlem aortic insufficiency with xdjeogws-di-tbglmf mitral insufficiency and moder ate tricuspid regurgitation. There is ybjiaidz-wh-pshmin pulmonary hypertension. No pericardial effusion.
--- NOTE | 2024-11-12 15:54 | DVHPN2 ---
Subjective 58-year-old male who initially presented to the hospital with shortness of breaths and generalized weakness found to have acute CHF exacerbation with systolic dysfunction, fluid overload with a end-stage renal disease on hemodialysis. Patient's had right thoracentesis on11/08. OVERNIGHT EVENTS NOTED. PATIENT BECAME RESTLESS AND DESATURATES TO 80S REQUIRING INTUBATION AND ICU UPGRADE. Reviewed: Care Plan Changes from previous H/P or p: Changes (Tyler showed multiple vegetation attached to a atrial and ventricular leads) Objective Vitals Vital Signs Date Time Temp Pulse Resp B/P (MAP) Pulse Ox O2 Delivery O2 Flow Rate FiO2 11/12/24 14:30 70 26 92/56 (68) 99 30 11/12/24 13:37 Mechanical Ventilator+ 11/12/24 12:00 98.6 98.6 11/11/24 08:00 10 Intake/Output Intake and Output 11/12/24 07:00 Intake Total 716.990 ml Output Total 0 ml Balance 716.990 ml Intake Oral 50 ml IV Total 666.990 ml Output Urine Total 0 ml # Voids 2 # Bowel Movements 1 Exam HEENT pupils are reactive Neck is supple CV is S1-S2 regular rate and rhythm Respiratory bilateral basal crackles GI positive bowel sound Extremities no edema 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 Medications Current Medications Medications Dose Ordered Sig/Jared Route Start Time Stop Time Status Last Admin Dose Admin Ondansetron HCl 4 mg Q6HPRN PRN IV 11/07/24 20:30 11/08/24 21:14 4 MG Acetaminophen/ Hydrocodone Bitart 1 tab Q6HPRN PRN PO 11/07/24 20:30 11/10/24 16:38 1 TAB Acetaminophen 650 mg Q6HPRN PRN PO 11/07/24 20:30 Famotidine 20 mg Q2D PO 11/08/24 10:00 11/12/24 07:59 20 MG Morphine Sulfate 2 mg Q6HPRN PRN IV 11/08/24 05:00 11/11/24 01:45 2 MG Vancomycin HCl 0 ml @ 0 mls/hr UD IV 11/09/24 09:15 Midodrine 10 mg TID@0600,1200,1800 PO 11/09/24 12:00 11/12/24 10:55 10 MG Dopamine HCl/ Dextrose 250 ml @ 7.266 mls/ hr Q24H IV 11/11/24 00:00 11/11/24 22:13 7.266 MLS/HR Midazolam HCl 50 ml @ 1 mls/hr Q24H IV 11/11/24 08:15 11/11/24 08:50 1 MLS/HR Norepinephrine Bitartrate 250 ml @ 3.75 mls/hr Q24H IV 11/11/24 07:00 11/12/24 00:58 15 MLS/HR Piperacillin Sod/ Tazobactam Sod 100 ml @ 25 mls/hr Q12HR IV 11/11/24 10:00 11/12/24 07:59 25 MLS/HR Phenylephrine HCl 250 ml @ 30 mls/hr Q8H20M IV 11/11/24 14:45 Fentanyl Citrate 250 ml @ 2.5 mls/hr Q24H IV 11/11/24 17:45 11/11/24 17:59 2.5 MLS/HR Diagnostic Test (Pha) 1 strip IQ4HR 11/12/24 04:00 11/12/24 10:55 1 STRIP Insulin Human Regular IQ4HR SC 11/12/24 04:00 Dextrose 50 ml UD PRN IV 11/12/24 03:30 Pantoprazole Sodium 50 ml @ 10 mls/hr Q5H IV 11/12/24 08:45 11/12/24 12:08 10 MLS/HR Laboratory Results Laboratory Tests 11/12/24 01:45 Chemistry Test 11/12/24 01:45 Albumin 3.0 g/dL (3.2-4.8) L Calcium Level 8.7 mg/dL (8.7-10.4) Magnesium Level 2.4 mg/dL (1.6-2.6) Total Protein 5.0 g/dL (5.7-8.2) L LFT Test 11/12/24 01:45 Alanine Aminotransferase (ALT) 493 U/L (7-40) H Alkaline Phosphatase 94 U/L (46-116) Aspartate Amino Transferase (AST) 2047 U/L (13-40) H Total Bilirubin 1.9 mg/dL (0.2-1.0) H Urinalysis Test 11/08/24 00:50 Urine Color Yellow (Yellow) Urine Clarity Clear (Clear) Urine pH 5.5 (5.0-9.0) Urine Specific Orr 1.019 (1.001-1.035) Urine Protein 3+ (Negative) H Urine Ketones Negative (Negative) Urine Blood Trace /uL (Negative) H Urine Nitrite Negative (Negative) Urine Bilirubin 1+ (Negative) Urine Urobilinogen Normal mg/dL (Negative) Urine Leukocyte Esterase Negative /uL (Negative) Urine RBC <1 /hpf (0 - 3) Urine WBC 2 /hpf (0 - 3) Urine Squamous Epithelial Cells Few /hpf (<5) Urine Bacteria Few /hpf (None Seen) H Urine Glucose 2+ mg/dL (Normal) H Blood Gas Results Test 11/11/24 16:06 11/12/24 06:00 Arterial Blood pH 7.279 (7.350-7.450) 7.319 (7.350-7.450) FiO2 % 50.0 30.0 Microbiology Microbiology Date/Time Source Procedure Growth Status 11/11/24 12:00 Bronchial Washings Gram Stain - Final Resulted 11/11/24 12:00 Bronchial Washings Respiratory Culture - Preliminary Resulted 11/11/24 08:00 Nose MRSA Screen - Final Complete 11/09/24 10:15 Blood Blood Culture - Final Staphylococcus aureus Complete 11/08/24 16:35 Pleural Fluid Gram Stain - Final Resulted 11/08/24 16:35 Pleural Fluid Body Fluid Culture - Preliminary Resulted Assessment/Plan Assessment/Plan 74-year-old male initially admitted to the hospital with the increasing shortness a breath found to have 1. Acute on chronic hypoxic respiratory failure secondary to underlying acute CHF exacerbation with systolic dysfunction as well as fluid overload with end- stage renal disease on hemodialysis, INTUBATED ON11/11 CURRENTLY ON MECHANICAL VENTILATION 2. End-stage renal disease on hemodialysis 3. Gram-positive bacteremia, REPEAT BLOOD CULTURES ARE STILL POSITIVE 4. Right-sided pleural effusion status post thoracentesis 5. Severe mitral regurgitation/severe tricuspid regurgitation 6. Cardiomyopathy with EF of 25% 7. Septic shock secondary to persistent bacteremia as well as infective endocarditis 8. Infective endocarditis 9. Rectal bleed, hold anticoagulation -patient may need cardiothoracic surgery intervention for severe infective endocarditis but too unstable to be transferred to higher level of care. broad- spectrum IV antibiotics, cardiology consultation and recommendation appreciated dialysis per renal. -CONTINUE VENT SUPPORT, DAILY ABG CHEST X-RAY, Patient ATIVES OR FAMILY MEMBER. 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 May need repeat TYLER look for any improvement in next couple of days DD Plan discussed with: Other My Orders Orders - NAVEEN DAMIAN MD Procedure Category Date Status Time Cover Wound With Foam PAULETTE 11/11/24 In Process Dressing 17:38 Chest Portable XY 11/12/24 Resulted 04:00 Pantoprazole PHA 11/12/24 In Process 40mg/50ml Ns Ae 08:45 * Gi Dvh Telegraph Operator CONS 11/12/24 Transmitted 09:46 Date of Service: Nov 12, 2024 Billing Provider: NAVEEN DAMIAN MD Common Visit Codes: NOT BILLABLE NAVEEN DAMIAN MD Nov 12, 2024 15:54
[2024-11-12] MEDS: VANCOMYCIN 750MG VIAL 750 MG in D5W 5% 100 ML IV ONE (17:15)
[2024-11-12 17:59] LABS: Hematocrit 48.6 % (41.0-53.0); Hemoglobin 15.5 g/dL (13.5-17.5)
--- NOTE | 2024-11-12 19:48 | DVHPN2 ---
Progress Note - Dictate Date Seen: Nov 12, 2024 Medical Necessity Reason Pt with a Central, PICC or Fol: No Subjective intubated sedated ECHO shows There is an abnormal pulmonic valve with a vegetation at the base adjacent to the septum. It appears to be along the track of the ventricular pacing lead. There is also a small flail mobile density in the intra-atrial septum adjacent to the AV junction. multiple vegetation, including leads infection vital signs Vital Sign Date Time Temp Pulse Resp B/P (MAP) Pulse Ox O2 Delivery O2 Flow Rate FiO2 11/12/24 18:45 70 26 101/58 (72) 100 11/12/24 18:23 30 11/12/24 18:15 99.3 99.3 11/12/24 17:33 Mechanical Ventilator+ 11/11/24 08:00 10 Total Intake and Output 11/11/24 11/11/24 11/12/24 15:00 23:00 07:00 Intake Total 177.628 ml 240.612 ml 298.75 ml Output Total 0 ml 0 ml Balance 177.628 ml 240.612 ml 298.75 ml medications Current Medications Medications Dose Ordered Sig/Jared Route Start Time Stop Time Status Last Admin Dose Admin Ondansetron HCl 4 mg Q6HPRN PRN IV 11/07/24 20:30 11/08/24 21:14 4 MG Acetaminophen/ Hydrocodone Bitart 1 tab Q6HPRN PRN PO 11/07/24 20:30 11/10/24 16:38 1 TAB Acetaminophen 650 mg Q6HPRN PRN PO 11/07/24 20:30 Famotidine 20 mg Q2D PO 11/08/24 10:00 11/12/24 07:59 20 MG Morphine Sulfate 2 mg Q6HPRN PRN IV 11/08/24 05:00 11/11/24 01:45 2 MG Vancomycin HCl 0 ml @ 0 mls/hr UD IV 11/09/24 09:15 Midodrine 10 mg TID@0600,1200,1800 PO 11/09/24 12:00 11/12/24 16:52 10 MG Dopamine HCl/ Dextrose 250 ml @ 7.266 mls/ hr Q24H IV 11/11/24 00:00 11/11/24 22:13 7.266 MLS/HR Midazolam HCl 50 ml @ 1 mls/hr Q24H IV 11/11/24 08:15 11/11/24 08:50 1 MLS/HR Norepinephrine Bitartrate 250 ml @ 3.75 mls/hr Q24H IV 11/11/24 07:00 11/12/24 16:54 15 MLS/HR Piperacillin Sod/ Tazobactam Sod 100 ml @ 25 mls/hr Q12HR IV 11/11/24 10:00 11/12/24 07:59 25 MLS/HR Phenylephrine HCl 250 ml @ 30 mls/hr Q8H20M IV 11/11/24 14:45 Fentanyl Citrate 250 ml @ 2.5 mls/hr Q24H IV 11/11/24 17:45 11/11/24 17:59 2.5 MLS/HR Diagnostic Test (Pha) 1 strip IQ4HR 11/12/24 04:00 11/12/24 16:00 1 STRIP Insulin Human Regular IQ4HR SC 11/12/24 04:00 Dextrose 50 ml UD PRN IV 11/12/24 03:30 Pantoprazole Sodium 50 ml @ 10 mls/hr Q5H IV 11/12/24 08:45 11/12/24 16:52 10 MLS/HR objective General Appeara: Thin, Other (appears ill) intubated Head Exam: Normal inspection Neck Exam: Normal inspection, Non-tender, Normal alignment Eye Exam: bilateral eye Normal inspection, bilateral eye PERRL, bilateral eye EOMI Ear Exam: bilateral ear Auricle normal Nasal Exam: Normal inspection Pulmonary/Respiratory: Normal inspection, Normal breath sounds, Chest non- tender, Lungs clear Cardiovascular/Chest: Normal inspection, Regular rate, Normal Rhythm Abdominal Exam: Normal bowel sounds, Soft, 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 discussed with Dr Yip however very unstable in septic shock on pressors repeat two sets of blood cultures Current Antibiotics: Vancomycin [Started 11/09]; vancomycin random is 17.8 ( in therapeutic range) Zosyn [Started 11/09] on multiple pressors his condition is life threatening. Crit time 35 minutes Thank you for consult. Dietary Evaluation Review Comments: when medically feasible, offer a combined CCHO-60 with Renal Standard 2gNa, 3 KCL, low phos diet. Poor appetite can be related to ESRD uremic symdrome; evaluate his eating behavior when possible. Expected Outcomes/Goals: controlled DM, less uremic symptoms, gradual weight gains. Plan discussed with: YASMANY Neil MD Nov 12, 2024 19:48
--- NOTE | 2024-11-12 19:59 | DVHPN2 ---
Progress Note - Dictate Date Seen: Nov 12, 2024 Medical Necessity Reason Pt with a Central, PICC or Fol: No Subjective clinically unchanged vital signs Vital Sign Date Time Temp Pulse Resp B/P (MAP) Pulse Ox O2 Delivery O2 Flow Rate FiO2 11/12/24 18:45 70 26 101/58 (72) 100 11/12/24 18:23 30 11/12/24 18:15 99.3 99.3 11/12/24 17:33 Mechanical Ventilator+ 11/11/24 08:00 10 Total Intake and Output 11/11/24 11/11/24 11/12/24 15:00 23:00 07:00 Intake Total 177.628 ml 240.612 ml 298.75 ml Output Total 0 ml 0 ml Balance 177.628 ml 240.612 ml 298.75 ml medications Current Medications Medications Dose Ordered Sig/Jared Route Start Time Stop Time Status Last Admin Dose Admin Ondansetron HCl 4 mg Q6HPRN PRN IV 11/07/24 20:30 11/08/24 21:14 4 MG Acetaminophen/ Hydrocodone Bitart 1 tab Q6HPRN PRN PO 11/07/24 20:30 11/10/24 16:38 1 TAB Acetaminophen 650 mg Q6HPRN PRN PO 11/07/24 20:30 Famotidine 20 mg Q2D PO 11/08/24 10:00 11/12/24 07:59 20 MG Morphine Sulfate 2 mg Q6HPRN PRN IV 11/08/24 05:00 11/11/24 01:45 2 MG Vancomycin HCl 0 ml @ 0 mls/hr UD IV 11/09/24 09:15 Midodrine 10 mg TID@0600,1200,1800 PO 11/09/24 12:00 11/12/24 16:52 10 MG Dopamine HCl/ Dextrose 250 ml @ 7.266 mls/ hr Q24H IV 11/11/24 00:00 11/11/24 22:13 7.266 MLS/HR Midazolam HCl 50 ml @ 1 mls/hr Q24H IV 11/11/24 08:15 11/11/24 08:50 1 MLS/HR Norepinephrine Bitartrate 250 ml @ 3.75 mls/hr Q24H IV 11/11/24 07:00 11/12/24 16:54 15 MLS/HR Piperacillin Sod/ Tazobactam Sod 100 ml @ 25 mls/hr Q12HR IV 11/11/24 10:00 11/12/24 07:59 25 MLS/HR Phenylephrine HCl 250 ml @ 30 mls/hr Q8H20M IV 11/11/24 14:45 Fentanyl Citrate 250 ml @ 2.5 mls/hr Q24H IV 11/11/24 17:45 11/11/24 17:59 2.5 MLS/HR Diagnostic Test (Pha) 1 strip IQ4HR 11/12/24 04:00 11/12/24 16:00 1 STRIP Insulin Human Regular IQ4HR SC 11/12/24 04:00 Dextrose 50 ml UD PRN IV 11/12/24 03:30 Pantoprazole Sodium 50 ml @ 10 mls/hr Q5H IV 11/12/24 08:45 11/12/24 16:52 10 MLS/HR objective gen: nad lungs: occ ronchi cvs: no rub ext: + edema laboratory and microbiology Laboratory Tests 11/12/24 17:28 11/12/24 01:45 Test 11/12/24 01:45 Range/Units Serum Glucose 129 H 74-106 mg/dL Assessment/Plan Problem List/Assessment/Plan End-stage renal disease on hemodialysis Bradycardia , resolved Protein calorie malnutrition Decompensated heart failure EF 30%, severe mitral regurg and severe tricus reg Hypotension Recommendations dialysis tentatively November 13 UF as hemodynamics permit Dietary Evaluation Review Comments: when medically feasible, offer a combined CCHO-60 with Renal Standard 2gNa, 3 KCL, low phos diet. Poor appetite can be related to ESRD uremic symdrome; evaluate his eating behavior when possible. Expected Outcomes/Goals: controlled DM, less uremic symptoms, gradual weight gains. Plan discussed with: Other MIKE NARAYAN MD Nov 12, 2024 19:59
--- NOTE | 2024-11-12 20:55 | DVHINCON2 ---
Date of service: Nov 12, [address] Yip Reason for Consultation Rectal bleeding History of Present Illness Mr. Nazario Artis is a 74 yo male with a history of AFIB, DM, ESRD w/HD M/W/F, HTN, pacemaker, and tobacco use, presents with a chief complaint of generalized weakness and failure to thrive and with shortness of breaths and generalized weakness found to have acute CHF exacerbation with systolic dysfunction, fluid overload with a end-stage renal disease on hemodialysis. Patient's had right thoracentesis on11/08 which showed moderate amount of blood in the pleural fluid. Patient was diagnosed with valvular heart disease and suspected endocarditis. He underwent a echocardiogram today which confirmed that he had vegetations in his right atrium. PATIENT BECAME RESTLESS AND DESATURATES TO 80S REQUIRING INTUBATION AND ICU UPGRADE. This morning and the patient was being turned he was noted to have moderate amount of bright-red blood gushing out of his rectum. During the day shift he had another episode but it appears to be slowing down. His hemoglobin is stable at 15.0. Patient was on blood thinners which have been put on hold Past Medical History AFIB, DM, ESRD w/HD M/W/F, HTN, anxiety depression, diabetes Cardiomyopathy, low ejection fraction, valvular heart disease Past Surgical History Pacemaker placement Family History: Cardiovascular disease G8 FATHER, ([place]) Chronic obstructive pulmonary disease G8 SISTER, FH: ovarian cancer G8 MOTHER, Hypertension G8 FATHER, Ischemic heart disease G8 FATHER, Malignant neoplasm of ovary G8 MOTHER, Allergies: Coded Allergies: NO KNOWN ALLERGIES (Unverified , 11/10/21) Home Meds Reported Medications Quetiapine Fumerate (QUETIAPINE FUMARATE) 100 Mg Tab, 150 MG PO HS for 30 Days, #90 11/08/24 Empagliflozin (Jardiance) 10 Mg Tab, 1 TAB PO DAILY for 30 Days, #30 24 Glimepiride (Glimepiride) 2 Mg Tab, 1 TAB PO DAILY for 90 Days, #90 11/08/24 Temazepam (Restoril) 15 Mg Cp, 1 CAP PO QPM for 17 Days, #28 10/27/24 Escitalopram Oxalate (Lexapro) 20 Mg Tab, 1 TAB PO DAILY for 30 Days, #30 10/27/24 Bupropion Hcl (Bupropion Hcl) 100 Mg Tab, 1 TAB PO DAILY for 30 Days, #30 10/27/24 Aripiprazole (Abilify) 2 Mg Tab, 1 TAB PO QPM PRN for 30 Days, #30 10/27/24 Hydroxyzine HCl (Hydroxyzine Hydrochloride) 25 Mg Tab, 25 MG PO BID for Anxiety, TAB 09/09/24 Trazodone HCl (Trazodone Hydrochloride) 50 Mg Tab, 100 MG PO QHSP PRN for FOR INSOMNIA, TAB 09/09/24 Glipizide (Glipizide) 5 Mg Tab, 5 MG PO DAILY for 30 Days, MG 09/09/24 Levothyroxine Sodium (Levothyroxine Sodium) 25 Mcg Tab, 25 MCG PO QAM, MCG 02/04/22 Amlodipine Besylate (Amlodipine Besylate) 10 Mg Tab, 1 TAB PO DAILY 02/04/22 Amitriptyline Hcl (Amitriptyline Hcl) 25 Mg Tab, 100 MG PO DAILY for 30 Days, MG 11/12/21 Discontinued Reported Medications Glimepiride (Glimepiride) 1 Mg Tab, 1 MG PO BID 11/12/21 Current Medications Current Medications Medications (Trade) Dose Ordered Sig/Jared Route PRN Reason Start Time Stop Time Status Last Admin Diagnostic Test (Pha) (Accu-Chek Comfort Curve T) 1 strip IQ4HR 11/12/24 04:00 11/12/24 20:11 Insulin Human Regular (InsuLIN R) IQ4HR SC 11/12/24 04:00 11/12/24 20:16 Dextrose 50 ml UD PRN IV Blood Sugar LESS THAN 60 11/12/24 03:30 Pantoprazole Sodium 50 ml @ 10 mls/hr Q5H IV 11/12/24 08:45 11/12/24 16:52 Vital Signs Vital Signs Date Time Temp Pulse Resp B/P (MAP) Pulse Ox O2 Delivery O2 Flow Rate FiO2 11/12/24 20:03 70 26 94/56 (69) 99 30 11/12/24 18:15 99.3 99.3 11/12/24 17:33 Mechanical Ventilator+ 11/11/24 08:00 10 Physical Exam HEENT pupils are reactive Neck is supple CV is S1-S2 regular rate and rhythm Respiratory bilateral basal crackles GI positive bowel sound Extremities 1+ edema [employer]ENT INTUBATED AND SEDATED Labs/Diagnostic Data Labs Test 11/12/24 20:14 11/12/24 17:28 11/12/24 09:05 11/12/24 06:00 Range/Units POC Glucose 141 H 70-106 mg/dl Hemoglobin 15.5 13.5-17.5 g/dL Hematocrit 48.6 41.0-53.0 % Lactic Acid Level 8.7 *H 0.4-2.0 mmol/L Blood Gas Specimen Type Arterial Blood Gas Sample Site Right brachial Blood Gas Patient Temperature 37.0 Arterial Blood Date Drawn [id number] Arterial Blood pH 7.319 L 7.350-7.450 Arterial Blood Partial Pressure CO2 27.6 L 35.0-48.0 mmHg Arterial Blood Partial Pressure O2 104.9 83.0-108.0 mmHg Arterial Blood HCO3 13.9 L 21.0-28.0 mmol/L Arterial Blood Oxygen Saturation 97.1 94.0-98.0 % Arterial Blood Base Excess -10.4 L -2.0-3.0 mmol/L Arterial Blood Oxyhemoglobin 96.5 94.0-98.0 % Arterial Blood Carboxyhemoglobin 0.2 L 0.5-1.5 % Arterial Blood Methemoglobin 0.4 0.0-1.5 % Ammon Test N/a Blood Gas Total Hemoglobin 15.60 13.5-17.5 g/dL Blood Gas Set Respiration Rate 28.0 Blood Gas Modality Vent - ac FiO2 % 30.0 Blood Gas Tidal Volume 550.0 Blood Gas PEEP or CPAP 5.0 Test 11/12/24 01:45 11/11/24 10:14 11/11/24 07:13 11/10/24 05:00 Range/Units White Blood Count 7.1 # 4.4-10.8 10^3/uL Red Blood Count 4.56 4.5-5.90 10^6/uL Mean Corpuscular Volume 99.3 # 80.0-100.0 fL Mean Corpuscular Hemoglobin 31.8 28.0-32.0 pg Mean Corpuscular Hemoglobin Concent 32.0 32.0-36.0 g/dL Red Cell Distribution Width 19.3 H 11.8-14.3 % Platelet Count 34 L 140-450 10^3/uL Mean Platelet Volume 11.0 H 6.9-10.8 fL Neutrophils (%) (Auto) 37.0-80.0 % Lymphocytes (%) (Auto) 10.0-50.0 % Monocytes (%) (Auto) 0.0-12.0 % Eosinophils (%) (Auto) 0.0-7.0 % Basophils (%) (Auto) 0.0-2.0 % Neutrophils # (Auto) 1.6-8.6 10 ^3/uL Lymphocytes # (Auto) 0.4-5.4 10 ^3/uL Monocytes # (Auto) 0-1.3 10 ^3/uL Differential Total Cells Counted 100.0 100 Neutrophils % (Manual) 86 H 37.0-80.0 Band Neutrophils % (Manual) 1 Lymphocytes % (Manual) 8 L 10.0-50.0 Monocytes % (Manual) 5 0-12 Eosinophils % (Manual) 0 0-7 Basophils % (Manual) 0 0.0-2.0 Metamyelocytes % (manual) 0 Myelocytes % (Manual) 0 Promyelocytes % (Manual) 0 Blast Cells % (Manual) 0 Reactive Lymphocytes 0 Platelet Estimate Decreased Ovalocytes Few Verdigre Cells Few Sodium Level 139 136-145 mmol/L Potassium Level 4.3 3.5-5.1 mmol/L Chloride Level 100 98-107 mmol/L Carbon Dioxide Level 16 L 20-31 mmol/L Anion Gap 23 H 5-15 Blood Urea Nitrogen 37 #H 9-23 mg/dL Creatinine 4.76 H 0.700-1.30 mg/dL Glomerular Filtration Rate Calc 12 >90 mL/min BUN/Creatinine Ratio 7.8 L 10.0-20.0 Serum Glucose 129 H 74-106 mg/dL Calcium Level 8.7 8.7-10.4 mg/dL Magnesium Level 2.4 1.6-2.6 mg/dL Total Bilirubin 1.9 H 0.2-1.0 mg/dL Aspartate Amino Transferase (AST) 2047 H 13-40 U/L Alanine Aminotransferase (ALT) 493 H 7-40 U/L Alkaline Phosphatase 94 46-116 U/L Total Protein 5.0 L 5.7-8.2 g/dL Albumin 3.0 L 3.2-4.8 g/dL Random Vancomycin Level 17.4 H 5-10 ug/mL Blood Gas Spontaneous Rate 20 Blood Gas Critical Value Read Back Yes Blood Gas Notified Whom Dr. beckett Blood Gas Notified Time [id number] Blood Gas Notified By Large Platelets Few Macrocytosis Slight Prothrombin Time 16.0 H 9.3-11.8 sec Prothrombin Time INR 1.56 H 0.9-1.15 Activated Partial Thromboplast Time 41.3 H 24.5-34.5 SEC Ammonia 31 11-32 umol/L Eosinophils # (Auto) 0.1 0-0.8 10 ^3/uL Basophils # (Auto) 0 0-0.2 10 ^3/uL Nucleated Red Blood Cells 0.0 % Phosphorus Level 6.7 H 2.4-5.1 mg/dL B-Type Natriuretic Peptide 4943.42 0-100 pg/mL Vitamin D 25-Hydroxy 17.5 L 30.0-100 ng/mL Parathyroid Hormone (Intact) 167.0 H 18.4-80.1 pg/mL Test 11/08/24 16:35 11/08/24 05:20 11/08/24 00:50 Range/Units Body Fluid Source Pleural fluid Body Fluid pH 8.0 Body Fluid WBC (Manual) 215 H 0-200 CUMM Body Fluid RBC (Manual) 10083 H 0-2000 CUMM Body Fluid Mononuclear Cells 35 % Body Fluid Polymorphonuclear Cells 65 H 0-25 % Body Fluid Glucose 147 . mg/dL Body Fluid Total Protein 1.2 . g/dL Body Fluid Lactate Dehydrogenase 48 . IU/L Vitamin B12 Level 1136 H 211-911 pg/mL Thyroid Stimulating Hormone (TSH) 9.63 H 0.55-4.78 uIU/mL Urine Color Yellow Yellow Urine Clarity Clear Clear Urine pH 5.5 5.0-9.0 Urine Specific [place] 1.019 1.001-1.035 Urine Protein 3+ H Negative Urine Ketones Negative Negative Urine Blood Trace H Negative /uL Urine Nitrite Negative Negative Urine Bilirubin 1+ Negative Urine Urobilinogen Normal Negative mg/dL Urine Leukocyte Esterase Negative Negative /uL Urine RBC <1 0 - 3 /hpf Urine WBC 2 0 - 3 /hpf Urine Squamous Epithelial Cells Few <5 /hpf Urine Bacteria Few H None Seen /hpf Urine Glucose 2+ H Normal mg/dL Microbiology Date/Time Source Procedure Growth Status 11/11/24 12:00 Bronchial Washings Gram Stain - Final Resulted 11/11/24 12:00 Bronchial Washings Respiratory Culture - Preliminary Resulted 11/11/24 08:00 Nose MRSA Screen - Final Complete 11/09/24 10:15 Blood Blood Culture - Final Staphylococcus aureus Complete 11/08/24 16:35 Pleural Fluid Gram Stain - Final Resulted 11/08/24 16:35 Pleural Fluid Body Fluid Culture - Preliminary Resulted CXR IMPRESSION: Moderate right pleural effusion prior to thoracentesis Cardiomegaly with pulmonary edema hazy infiltrates Problems(with codes): (1) Endocarditis (2) Pleural effusion, right (3) ESRD needing dialysis (4) Generalized weakness (5) Acute respiratory failure (6) Depression (7) CHF (congestive heart failure) (8) Rectal bleeding (9) Staphylococcus aureus bacteremia with sepsis Plan/Recommendation Plan At this time the patient is hemodynamically stable and H&H is stable Rectal bleeding likely related to anorectal issues We should get a CT scan of the abdomen pelvis once the patient is medically stabilized rule out colitis Get bedside complete abdominal ultrasound Continue to monitor labs Monitor serial H&H Hold Lovenox and blood thinners Patient is being evaluated for possible transfer to higher level of care Prognosis remains guarded Patient is not in a stable condition for a colonoscopy examination at this time I will follow up patient with you Plan discussed with: Other (ICU Nurse) JUAN FREEMAN MD Nov 12, 2024 20:55
--- NOTE | 2024-11-12 22:45 | DVHPN2 ---
Progress Note - Dictate Date Seen: Nov 12, 2024 Medical Necessity Reason Pt with a Central, PICC or Fol: Yes The following are medically ne: Central Line Subjective Patient seen and examined at bedside. Sedated, intubated on mechanical ventilator. Overnight events reviewed. vital signs Vital Sign Date Time Temp Pulse Resp B/P (MAP) Pulse Ox O2 Delivery O2 Flow Rate FiO2 11/12/24 22:40 67 26 104/56 (72) 99 30 11/12/24 18:15 99.3 99.3 11/12/24 17:33 Mechanical Ventilator+ 11/11/24 08:00 10 Total Intake and Output 11/11/24 11/11/24 11/12/24 15:00 23:00 07:00 Intake Total 177.628 ml 240.612 ml 298.75 ml Output Total 0 ml 0 ml Balance 177.628 ml 240.612 ml 298.75 ml medications Current Medications Medications Dose Ordered Sig/Jared Route Start Time Stop Time Status Last Admin Dose Admin Ondansetron HCl 4 mg Q6HPRN PRN IV 11/07/24 20:30 11/08/24 21:14 4 MG Acetaminophen/ Hydrocodone Bitart 1 tab Q6HPRN PRN PO 11/07/24 20:30 11/10/24 16:38 1 TAB Acetaminophen 650 mg Q6HPRN PRN PO 11/07/24 20:30 Famotidine 20 mg Q2D PO 11/08/24 10:00 11/12/24 07:59 20 MG Morphine Sulfate 2 mg Q6HPRN PRN IV 11/08/24 05:00 11/11/24 01:45 2 MG Vancomycin HCl 0 ml @ 0 mls/hr UD IV 11/09/24 09:15 Midodrine 10 mg TID@0600,1200,1800 PO 11/09/24 12:00 11/12/24 16:52 10 MG Dopamine HCl/ Dextrose 250 ml @ 7.266 mls/ hr Q24H IV 11/11/24 00:00 11/11/24 22:13 7.266 MLS/HR Midazolam HCl 50 ml @ 1 mls/hr Q24H IV 11/11/24 08:15 11/11/24 08:50 1 MLS/HR Norepinephrine Bitartrate 250 ml @ 3.75 mls/hr Q24H IV 11/11/24 07:00 11/12/24 16:54 15 MLS/HR Piperacillin Sod/ Tazobactam Sod 100 ml @ 25 mls/hr Q12HR IV 11/11/24 10:00 11/12/24 22:08 25 MLS/HR Phenylephrine HCl 250 ml @ 30 mls/hr Q8H20M IV 11/11/24 14:45 Fentanyl Citrate 250 ml @ 2.5 mls/hr Q24H IV 11/11/24 17:45 11/12/24 22:35 7.5 MLS/HR Diagnostic Test (Pha) 1 strip IQ4HR 11/12/24 04:00 11/12/24 20:11 1 STRIP Insulin Human Regular IQ4HR SC 11/12/24 04:00 11/12/24 20:16 2 UNITS Dextrose 50 ml UD PRN IV 11/12/24 03:30 Pantoprazole Sodium 50 ml @ 10 mls/hr Q5H IV 11/12/24 08:45 11/12/24 22:32 10 MLS/HR Diagnostic Test (Pha) 1 strip Q6HR 11/13/24 00:00 Insulin Human Regular PLEASE FOLLOW SLID... Q6HR SC 11/13/24 00:00 Amino Acids/ Electrolytes/ Dextrose 1,000 ml @ 42 mls/hr [id number] IV 11/13/24 08:00 UNV objective Gen.: Patient lying in bed in medical ICU. Sedated, intubated on mechanical ventilator. Head: Normocephalic, atraumatic. Eyes: PERRLA. Ears: Normal external anatomy. Throat: Endotracheal tube and orogastric tube in place. Neck: Supple, trachea midline. Chest: Transmitted breath sounds bilaterally. Decreased air entry bilaterally. No wheezing. Bibasilar crackles. Cardiovascular: Positive S1, positive S2. Regular rate and rhythm. Abdomen: Positive bowel sounds in all 4 quadrants. Soft, nontender, nondistended. : [place] in place. Normal external genitalia. Rectal: Deferred. Skin: Warm, dry. Intact. Extremities: 2+ radial pulses bilaterally. No lower extremity edema. Neuro: Sedated. laboratory and microbiology Laboratory Tests 11/12/24 17:28 11/12/24 01:45 Test 11/12/24 01:45 Range/Units Serum Glucose 129 H 74-106 mg/dL Assessment/Plan Impression: Acute hypoxic respiratory failure On mechanical ventilator End-stage renal disease on hemodialysis Pleural effusion, right Atelectasis Pulmonary edema Events: Patient remains intubated, on vent Vent settings; AC mode with RR 26, VT 550, PEEP 5, FiO2 of 30% Sedated on Fentanyl On Levophed 8 mcg/min, Dopamine 2.5 mcg/min for hemodynamic support Titrate to keep MAP above 65 mmHg/SBP above 90 mmHg. Hemodialysis per Nephrology Monitor renal function ABG notable for acidemia due to metabolic acidosis S/p bronchoscopy w/ RML BAL on 11/11/24. Copious secretions/mucous plugs throughout R1-R10, L1-L10. BAL cultures grew rare Staph aureus. Continue antibiotics Continue bronchodilators Incentive spirometry Pain control Avoid oversedation Monitor platelet count Protonix drip for GI prophylaxis Labs and imaging reviewed. Rest of plan as noted below. Plan: 11/08 - Chest x-ray imaging report reviewed. Bibasilar airspace opacities. Moderate right pleural effusion. No pneumothorax. Pulmonary edema. I was called emergently to the bedside to evaluate patient due to respiratory distress. Limited chest US demonstrated moderate to large right pleural effusion. S/p right thoracentesis on 11/08/24 - 1000 mL sero-sanguinous fluid removed from right pleural space. Follow up cultures and cytology. S/p intubation and placement on mechanical ventilator. Vent settings; AC mode with RR 26, VT 550, PEEP 5, FiO2 of 30% Titrate FIO2 to keep O2 saturation above 90%. VAP bundle. Daily ABG and CXR while intubated Sedate for ventilator synchrony On pressors for hemodynamic support Titrate to keep mean arterial pressure greater than 65 mmHg. Monitor renal function Monitor ins and outs Monitor electrolytes. Supplement as necessary. Hemodialysis per Nephrology GI prophylaxis DVT prophylaxis - SCDs. Prognosis: Poor given multiple comorbidities. Condition: Critical Rest of plan per hospitalist and other consultants. A total of 35 minutes of critical care time was spent reviewing the patient record, examining the patient, making a diagnostic and therapeutic plan, discussing this plan with the medical personnel, following up on diagnostic studies and following the patient for clinical stability excluding any and all procedures. At least 50% of this time was spent in direct, [id number] contact. Thank you Dr. Yip for allowing me to participate in this patient's care. Further recommendations will depend on patient's clinical course. Please do not hesitate to contact me if you have any questions or concerns. This medical document was created using an electronic medical record system with [employer] system. Although this document has been carefully reviewed, there may still be some phonetic and typographical errors. These areas are purely typographical due to imperfections of the software programs, and do not reflect any compromise in the patient's medical care. Dietary Evaluation Review Comments: when medically feasible, offer a combined CCHO-60 with Renal Standard 2gNa, 3 KCL, low phos diet. Poor appetite can be related to ESRD uremic symdrome; evaluate his eating behavior when possible. Expected Outcomes/Goals: controlled DM, less uremic symptoms, gradual weight gains. Plan discussed with: Other (MATTHEW Caro) Critical Care Time(min): 35 BETH LEMON MD Nov 12, 2024 22:45
[2024-11-13] VITALS (146 sets, daily range): BP systolic 30–117; BP diastolic 14–75; PULSE 63–78; RESP 7–28; TEMP 99–100; O2SAT 24–100
[2024-11-13] MEDS ORDERED: InsuLIN REG 1unit/0.01ml Soln (100units/ml) SC SCH
[2024-11-13] MEDS ORDERED: ACCU-CHEK COMFORT CURVE STRIP VI SCH
[2024-11-13 04:19] LABS: Basophils # (auto) 0 10 ^3/uL (0-0.2); Basophils % (auto) 0.2 % (0.0-2.0); Eosinophils # (auto) 0.3 10 ^3/uL (0-0.8); Hemoglobin 16.2 g/dL (13.5-17.5); Monocytes # (auto) 0.3 10 ^3/uL (0-1.3); Monocytes % (auto) 2.4 % (0.0-12.0); Neutrophils # (auto) 10.2 10 ^3/uL (1.6-8.6); White Blood Cell 11.7 10^3/uL (4.4-10.8)
[2024-11-13 04:21] LABS: Eosinophils % (auto) 2.7 % (0.0-7.0); Hematocrit 49.1 % (41.0-53.0); Lymphocytes # (auto) 0.8 10 ^3/uL (0.4-5.4); Lymphocytes % (auto) 7.1 % (10.0-50.0); Mean Corpuscular Hemoglobin 32.4 pg (28.0-32.0); Mean Corpuscular Volume 98.2 fL (80.0-100.0); Neutrophils % (auto) 87.6 % (37.0-80.0); Nucleated Red Blood Cells % 0.3 %; Platelet Count (auto) 32 10^3/uL (140-450); Red Cell Distribution Width 18.7 % (11.8-14.3)
[2024-11-13 04:24] LABS: Anion Gap 18 (5-15); BUN/Creatinine Ratio 8.7 (10.0-20.0); Chloride 101 mmol/L (98-107); Magnesium 2.3 mg/dL (1.6-2.6); Potassium 4.8 mmol/L (3.5-5.1); Sodium 137 mmol/L (136-145)
[2024-11-13 04:59] LABS: Alanine Aminotransferase 1265 U/L (7-40); Albumin 2.5 g/dL (3.2-4.8); Alkaline Phosphatase 119 U/L (46-116); Aspartate Aminotransferase 3735 U/L (13-40); Bilirubin, Total 2.1 mg/dL (0.2-1.0); Blood Urea Nitrogen 48 mg/dL (9-23); Calcium 7.9 mg/dL (8.7-10.4); Carbon Dioxide 18 mmol/L (20-31); Glucose 127 mg/dL (74-106); Total Protein 4.6 g/dL (5.7-8.2)
[2024-11-13 05:05] LABS: Lactic Acid w/Reflex 6.1 mmol/L (0.4-2.0)
--- NOTE | 2024-11-13 05:37 | DVH ---
EXAM: XY CHEST PORTABLE Indication: intubated Technique: Single frontal view of the chest was obtained Comparison: XY CHEST PORTABLE on DOS: 11/12/24, XY CHEST XRAY 1 VIEW on DOS: 11/11/24, XY CHEST WILMAN BLE on DOS: 11/11/24, XY CHEST XRAY 1 VIEW on DOS: 11/08/24, XY CHEST XRAY 1 VIEW on DOS: 11/08/24, X Y CHEST PORTABLE on DOS: 11/12/24 FINDINGS: Lines and Tubes: Endotracheal tube, enteric catheter, left and right central venous catheter is in sa tisfactory position. Left chest wall pacemaker. Lungs: Hazy right lung airspace disease. Pleura: No effusion. No pneumothorax. Cardiomediastinal contours: Unremarkable Bones: Unremarkable IMPRESSION: Lines and tubes in satisfactory position. No significant interval change.
[2024-11-13 05:57] LABS: Large Platelets FEW; Platelet Estimate Decrea
[2024-11-13 06:29] LABS: Base Excess -8.7 mmol/L (-2.0-3.0)
[2024-11-13] MEDS ORDERED: AMINO ACID INFUSION IN D10W 1,000 ML IV SCH (08:00)
[2024-11-13] MEDS: DEXTROSE (50%) 50ML SYRG IV PRN (08:15)
[2024-11-13] MEDS ORDERED: CLINIMIX PER PHARMACY 0 ML IV SCH (08:30)
[2024-11-13] MEDS ORDERED: DEXTROSE (50%) 50ML SYRG IV SCH (10:15)
[2024-11-13] MEDS: InsuLIN REG 1unit/0.01ml Soln (100units/ml) SC SCH (12:00)
[2024-11-13] MEDS: ACCU-CHEK COMFORT CURVE STRIP VI SCH (12:05)
--- NOTE | 2024-11-13 13:15 | DVHPN2 ---
Progress Note - Dictate Date Seen: Nov 13, 2024 Medical Necessity Reason Pt with a Central, PICC or Fol: No Subjective Patient had a patient had a couple more episodes of bleeding last night but this morning only a small snare H&H is stable ; patient is on an IV Protonix drip Patient is on low-dose pressor support and broad-spectrum antibiotics Patient has moderate elevation in liver enzymes likely related to hypoxic liver injury Ammonia level noted to be mildly elevated to 52 vital signs Vital Sign Date Time Temp Pulse Resp B/P (MAP) Pulse Ox O2 Delivery O2 Flow Rate FiO2 11/13/24 12:15 73 26 104/60 (75) 95 11/13/24 12:00 30 11/13/24 10:00 99.1 99.1 11/13/24 08:00 Mechanical Ventilator+ 11/11/24 08:00 10 Total Intake and Output 11/12/24 11/12/24 11/13/24 15:00 23:00 07:00 Intake Total 344.378 ml 543.128 ml 388.128 ml Output Total 0 ml 0 ml Balance 344.378 ml 543.128 ml 388.128 ml medications Current Medications Medications Dose Ordered Sig/Jared Route Start Time Stop Time Status Last Admin Dose Admin Ondansetron HCl 4 mg Q6HPRN PRN IV 11/07/24 20:30 11/08/24 21:14 4 MG Acetaminophen/ Hydrocodone Bitart 1 tab Q6HPRN PRN PO 11/07/24 20:30 11/10/24 16:38 1 TAB Acetaminophen 650 mg Q6HPRN PRN PO 11/07/24 20:30 Famotidine 20 mg Q2D PO 11/08/24 10:00 11/12/24 07:59 20 MG Morphine Sulfate 2 mg Q6HPRN PRN IV 11/08/24 05:00 11/11/24 01:45 2 MG Vancomycin HCl 0 ml @ 0 mls/hr UD IV 11/09/24 09:15 Midodrine 10 mg TID@0600,1200,1800 PO 11/09/24 12:00 11/13/24 12:06 10 MG Dopamine HCl/ Dextrose 250 ml @ 7.266 mls/ hr Q24H IV 11/11/24 00:00 11/13/24 07:41 7.266 MLS/HR Midazolam HCl 50 ml @ 1 mls/hr Q24H IV 11/11/24 08:15 11/11/24 08:50 1 MLS/HR Norepinephrine Bitartrate 250 ml @ 3.75 mls/hr Q24H IV 11/11/24 07:00 11/13/24 07:41 18.75 MLS/HR Piperacillin Sod/ Tazobactam Sod 100 ml @ 25 mls/hr Q12HR IV 11/11/24 10:00 11/13/24 09:53 25 MLS/HR Phenylephrine HCl 250 ml @ 30 mls/hr Q8H20M IV 11/11/24 14:45 Fentanyl Citrate 250 ml @ 2.5 mls/hr Q24H IV 11/11/24 17:45 11/12/24 22:35 7.5 MLS/HR Pantoprazole Sodium 50 ml @ 10 mls/hr Q5H IV 11/12/24 08:45 11/13/24 09:54 10 MLS/HR Diagnostic Test (Pha) 1 strip Q6HR 11/13/24 00:00 Cancel Insulin Human Regular PLEASE FOLLOW SLID... Q6HR NV 11/13/24 00:00 Cancel Amino Acids/ Electrolytes/ Dextrose 1,000 ml @ 42 mls/hr [id number] IV 11/13/24 08:00 UNV Amino Acids 0 ml @ 0 mls/hr PER PHARMACY IV 11/13/24 08:30 Diagnostic Test (Pha) 1 strip Q6HR 11/13/24 12:00 11/13/24 12:05 1 STRIP Insulin Human Regular FOLLOW SLIDING SCALE Q6HR NV 11/13/24 12:00 Dextrose 50 ml UD IV 11/13/24 10:15 Amino Acids 1,000 ml @ 41 mls/hr DAILY@2200 IV 11/13/24 22:00 objective HEENT pupils are reactive Neck is supple CV is S1-S2 regular rate and rhythm Respiratory bilateral basal crackles GI positive bowel sound Extremities 1+ edema [employer] INTUBATED AND SEDATED laboratory and microbiology Laboratory Tests 11/13/24 03:30 Test 11/13/24 03:30 Range/Units Serum Glucose 127 H 74-106 mg/dL Problems(with codes): (1) Staphylococcus aureus septicemia (2) Rectal bleeding (3) CHF (congestive heart failure) (4) Endocarditis (5) Generalized weakness (6) Pleural effusion, right Prognosis Plan Patient is H&H is stable Continue to monitor labs ; repeat PT INR Continue IV Protonix 40 mg q.12 hours I will defer the use of lactulose at this time because of history of GI bleed Check hepatitis panel Check right upper quadrant ultrasound Possible transfer to higher level of care of further management and treatment of valvular vegetations Dietary Evaluation Review Comments: when medically feasible, offer a combined CCHO-60 with Renal Standard 2gNa, 3 KCL, low phos diet. Poor appetite can be related to ESRD uremic symdrome; evaluate his eating behavior when possible. Expected Outcomes/Goals: controlled DM, less uremic symptoms, gradual weight gains. Plan discussed with: Other (ICU Nurse) JUAN FREEMAN MD Nov 13, 2024 13:15
[2024-11-13] MEDS ORDERED: SODIUM CHL 0.9% 1000 ML BAG XX ONE (13:45)
--- NOTE | 2024-11-13 16:03 | DVHPN2 ---
Progress Note - Dictate Date Seen: Nov 13, 2024 Medical Necessity Reason Pt with a Central, PICC or Fol: No Subjective Patient's nurse at bedside during evaluation vital signs Vital Sign Date Time Temp Pulse Resp B/P (MAP) Pulse Ox O2 Delivery O2 Flow Rate FiO2 11/13/24 14:00 30 11/13/24 14:00 74 11/13/24 14:00 26 104/60 (75) 100 11/13/24 10:00 99.1 99.1 11/13/24 08:00 Mechanical Ventilator+ 11/11/24 08:00 10 Total Intake and Output 11/12/24 11/12/24 11/13/24 15:00 23:00 07:00 Intake Total 344.378 ml 543.128 ml 388.128 ml Output Total 0 ml 0 ml Balance 344.378 ml 543.128 ml 388.128 ml medications Current Medications Medications Dose Ordered Sig/Jared Route Start Time Stop Time Status Last Admin Dose Admin Ondansetron HCl 4 mg Q6HPRN PRN IV 11/07/24 20:30 11/08/24 21:14 4 MG Acetaminophen/ Hydrocodone Bitart 1 tab Q6HPRN PRN PO 11/07/24 20:30 11/10/24 16:38 1 TAB Acetaminophen 650 mg Q6HPRN PRN PO 11/07/24 20:30 Famotidine 20 mg Q2D PO 11/08/24 10:00 Hold 11/12/24 07:59 20 MG Morphine Sulfate 2 mg Q6HPRN PRN IV 11/08/24 05:00 11/11/24 01:45 2 MG Vancomycin HCl 0 ml @ 0 mls/hr UD IV 11/09/24 09:15 Midodrine 10 mg TID@0600,1200,1800 PO 11/09/24 12:00 11/13/24 12:06 10 MG Dopamine HCl/ Dextrose 250 ml @ 7.266 mls/ hr Q24H IV 11/11/24 00:00 11/13/24 07:41 7.266 MLS/HR Midazolam HCl 50 ml @ 1 mls/hr Q24H IV 11/11/24 08:15 11/11/24 08:50 1 MLS/HR Norepinephrine Bitartrate 250 ml @ 3.75 mls/hr Q24H IV 11/11/24 07:00 11/13/24 07:41 18.75 MLS/HR Piperacillin Sod/ Tazobactam Sod 100 ml @ 25 mls/hr Q12HR IV 11/11/24 10:00 11/13/24 09:53 25 MLS/HR Phenylephrine HCl 250 ml @ 30 mls/hr Q8H20M IV 11/11/24 14:45 Fentanyl Citrate 250 ml @ 2.5 mls/hr Q24H IV 11/11/24 17:45 11/12/24 22:35 7.5 MLS/HR Pantoprazole Sodium 50 ml @ 10 mls/hr Q5H IV 11/12/24 08:45 11/13/24 15:13 10 MLS/HR Diagnostic Test (Pha) 1 strip Q6HR 11/13/24 00:00 Cancel Insulin Human Regular PLEASE FOLLOW SLID... Q6HR SC 11/13/24 00:00 Cancel Amino Acids/ Electrolytes/ Dextrose 1,000 ml @ 42 mls/hr [id number] IV 11/13/24 08:00 UNV Amino Acids 0 ml @ 0 mls/hr PER PHARMACY IV 11/13/24 08:30 Diagnostic Test (Pha) 1 strip Q6HR 11/13/24 12:00 11/13/24 12:05 1 STRIP Insulin Human Regular FOLLOW SLIDING SCALE Q6HR SC 11/13/24 12:00 Dextrose 50 ml UD IV 11/13/24 10:15 Amino Acids 1,000 ml @ 41 mls/hr DAILY@2200 IV 11/13/24 22:00 objective gen: nad lungs: occ ronchi cvs: no rub ext: + edema laboratory and microbiology Laboratory Tests 11/13/24 03:30 Test 11/13/24 03:30 Range/Units Serum Glucose 127 H 74-106 mg/dL Assessment/Plan Problem List/Assessment/Plan End-stage renal disease on hemodialysis Bradycardia , resolved Protein calorie malnutrition Decompensated heart failure EF 30%, severe mitral regurg and severe tricus reg Hypotension Recommendations dialysis today for solute/ volume removal as tolerated Dietary Evaluation Review Comments: when medically feasible, offer a combined CCHO-60 with Renal Standard 2gNa, 3 KCL, low phos diet. Poor appetite can be related to ESRD uremic symdrome; evaluate his eating behavior when possible. Expected Outcomes/Goals: controlled DM, less uremic symptoms, gradual weight gains. Plan discussed with: Other MIKE NARAYAN MD Nov 13, 2024 16:02
--- NOTE | 2024-11-13 16:08 | DVH ---
Procedure: US ABDOMEN LIMITED Study Date and Requested Time: 11/13/2024 02:44 PM History: elevated liver enzymes Comparison: None Technique: Multiple high resolution huff-scale images obtained of the right upper quadrant of the abd omen with color Doppler for evaluation of blood flow and vascularity as indicated. Findings: Liver normal in size, measuring 14.3 cm in length, with increased echogenicity and normal contours. N o evidence of focal hepatic lesions, intrahepatic or extrahepatic ductal dilatation. Common bile duct measures 0.9 cm in diameter. Sludge within th significantly distended e gallbladder. Otherwise gallbladder is unremarkable with no gallstones, wall thickening or pericholecystic free fluid. Pancreas is obscured by bowel gas. Right kidney measures 9.9 cm in length, with normal contours, echotexture, and cortical thickness. No evidence of hydronephrosis, calculi, cystic or solid renal lesions. Partially visualized inferior vena cava unremarkable. Ascites is noted in all 4 abdominal quadrants. Impression: Increased hepatic echogenicity which may be from hepatic disease/hepatic steatosis. Mild ascites. Small to moderate right-sided pleural effusion. Mild distention of the common bile duct, out of proportion for patient's age. MRCP may be considered for further evaluation. Sludge within the significantly distended gallbladder with no ultrasound evidence of cholelithiasis o r acute cholecystitis. Pancreas is obscured by bowel gas.
--- NOTE | 2024-11-13 16:18 | DVHPN2 ---
Subjective 58-year-old male who initially presented to the hospital with shortness of breaths and generalized weakness found to have acute CHF exacerbation with systolic dysfunction, fluid overload with a end-stage renal disease on hemodialysis. Patient's had right thoracentesis on11/08. OVERNIGHT EVENTS NOTED. Patient remains on mechanical ventilation, currently on Levophed as well. Reviewed: Care Plan Changes from previous H/P or p: No Changes Objective Vitals Vital Signs Date Time Temp Pulse Resp B/P (MAP) Pulse Ox O2 Delivery O2 Flow Rate FiO2 11/13/24 16:07 70 26 103/59 (74) 95 30 11/13/24 16:00 100.0 100.0 11/13/24 08:00 Mechanical Ventilator+ 11/11/24 08:00 10 Intake/Output Intake and Output 11/13/24 07:00 Intake Total 1275.634 ml Output Total 0 ml Balance 1275.634 ml Intake Oral 180 ml IV Total 1095.634 ml Output Urine Total 0 ml # Bowel Movements 2 Exam HEENT pupils are reactive Neck is supple CV is S1-S2 regular rate and rhythm Respiratory bilateral basal crackles GI positive bowel sound Extremities no edema 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 INTUBATED AND SEDATED Medications Current Medications Medications Dose Ordered Sig/Jared Route Start Time Stop Time Status Last Admin Dose Admin Ondansetron HCl 4 mg Q6HPRN PRN IV 11/07/24 20:30 11/08/24 21:14 4 MG Acetaminophen/ Hydrocodone Bitart 1 tab Q6HPRN PRN PO 11/07/24 20:30 11/10/24 16:38 1 TAB Acetaminophen 650 mg Q6HPRN PRN PO 11/07/24 20:30 Famotidine 20 mg Q2D PO 11/08/24 10:00 Hold 11/12/24 07:59 20 MG Morphine Sulfate 2 mg Q6HPRN PRN IV 11/08/24 05:00 11/11/24 01:45 2 MG Vancomycin HCl 0 ml @ 0 mls/hr UD IV 11/09/24 09:15 Midodrine 10 mg TID@0600,1200,1800 PO 11/09/24 12:00 11/13/24 12:06 10 MG Dopamine HCl/ Dextrose 250 ml @ 7.266 mls/ hr Q24H IV 11/11/24 00:00 11/13/24 07:41 7.266 MLS/HR Midazolam HCl 50 ml @ 1 mls/hr Q24H IV 11/11/24 08:15 11/11/24 08:50 1 MLS/HR Norepinephrine Bitartrate 250 ml @ 3.75 mls/hr Q24H IV 11/11/24 07:00 11/13/24 07:41 18.75 MLS/HR Piperacillin Sod/ Tazobactam Sod 100 ml @ 25 mls/hr Q12HR IV 11/11/24 10:00 11/13/24 09:53 25 MLS/HR Phenylephrine HCl 250 ml @ 30 mls/hr Q8H20M IV 11/11/24 14:45 Fentanyl Citrate 250 ml @ 2.5 mls/hr Q24H IV 11/11/24 17:45 11/12/24 22:35 7.5 MLS/HR Pantoprazole Sodium 50 ml @ 10 mls/hr Q5H IV 11/12/24 08:45 11/13/24 15:13 10 MLS/HR Diagnostic Test (Pha) 1 strip Q6HR 11/13/24 00:00 Cancel Insulin Human Regular PLEASE FOLLOW SLID... Q6HR SC 11/13/24 00:00 Cancel Amino Acids/ Electrolytes/ Dextrose 1,000 ml @ 42 mls/hr [id number] IV 11/13/24 08:00 UNV Amino Acids 0 ml @ 0 mls/hr PER PHARMACY IV 11/13/24 08:30 Diagnostic Test (Pha) 1 strip Q6HR 11/13/24 12:00 11/13/24 12:05 1 STRIP Insulin Human Regular FOLLOW SLIDING SCALE Q6HR VA 11/13/24 12:00 Dextrose 50 ml UD IV 11/13/24 10:15 Amino Acids 1,000 ml @ 41 mls/hr DAILY@2200 IV 11/13/24 22:00 Laboratory Results Laboratory Tests 11/13/24 03:30 Chemistry Test 11/13/24 03:30 Albumin 2.5 g/dL (3.2-4.8) L Calcium Level 7.9 mg/dL (8.7-10.4) L Magnesium Level 2.3 mg/dL (1.6-2.6) Phosphorus Level 6.9 mg/dL (2.4-5.1) H Total Protein 4.6 g/dL (5.7-8.2) L LFT Test 11/13/24 03:30 Alanine Aminotransferase (ALT) 1265 U/L (7-40) H Alkaline Phosphatase 119 U/L (46-116) H Aspartate Amino Transferase (AST) 3735 U/L (13-40) H Total Bilirubin 2.1 mg/dL (0.2-1.0) H Urinalysis Test 11/08/24 00:50 Urine Color Yellow (Yellow) Urine Clarity Clear (Clear) Urine pH 5.5 (5.0-9.0) Urine Specific [place] 1.019 (1.001-1.035) Urine Protein 3+ (Negative) H Urine Ketones Negative (Negative) Urine Blood Trace /uL (Negative) H Urine Nitrite Negative (Negative) Urine Bilirubin 1+ (Negative) Urine Urobilinogen Normal mg/dL (Negative) Urine Leukocyte Esterase Negative /uL (Negative) Urine RBC <1 /hpf (0 - 3) Urine WBC 2 /hpf (0 - 3) Urine Squamous Epithelial Cells Few /hpf (<5) Urine Bacteria Few /hpf (None Seen) H Urine Glucose 2+ mg/dL (Normal) H Blood Gas Results Test 11/13/24 06:16 Arterial Blood pH 7.351 (7.350-7.450) FiO2 % 30.0 Microbiology Microbiology Date/Time Source Procedure Growth Status 11/11/24 12:00 Bronchial Washings Gram Stain - Final Resulted 11/11/24 12:00 Bronchial Washings Respiratory Culture - Preliminary Resulted 11/11/24 08:00 Nose MRSA Screen - Final Complete 11/09/24 10:15 Blood Blood Culture - Final Staphylococcus aureus Complete 11/08/24 16:35 Pleural Fluid Gram Stain - Final Complete 11/08/24 16:35 Pleural Fluid Body Fluid Culture - Final Complete Assessment/Plan Assessment/Plan 74-year-old male initially admitted to the hospital with the increasing shortness a breath found to have 1. Acute on chronic hypoxic respiratory failure secondary to underlying acute CHF exacerbation with systolic dysfunction as well as fluid overload with end- stage renal disease on hemodialysis, INTUBATED ON11/11 CURRENTLY ON MECHANICAL VENTILATION 2. End-stage renal disease on hemodialysis 3. Gram-positive bacteremia, REPEAT BLOOD CULTURES ARE STILL POSITIVE 4. Right-sided pleural effusion status post thoracentesis 5. Severe mitral regurgitation/severe tricuspid regurgitation 6. Cardiomyopathy with EF of 25% 7. Septic shock secondary to persistent bacteremia as well as infective endocarditis 8. Infective endocarditis 9. Rectal bleed, hold anticoagulation -patient may need cardiothoracic surgery intervention for severe infective endocarditis but too unstable to be transferred to higher level of care. broad- spectrum IV antibiotics, cardiology consultation and recommendation appreciated dialysis per renal. -CONTINUE VENT SUPPORT, DAILY ABG CHEST X-RAY, ELECTRICIAN OFFICE ON BOARD for location of any family members. May need repeat DARVIN look for any improvement in next couple of days . Plan discussed with: Other My Orders Orders - NAVEEN DAMIAN MD Procedure Category Date Status Time Chest Portable XY 11/13/24 Resulted 04:00 Complete Blood Count LAB 11/14/24 Verified 04:00 Vancomycin,Random LAB 11/14/24 Verified 04:00 Date of Service: Nov 13, 2024 Billing Provider: NAVEEN DAMIAN MD Common Visit Codes: NOT BILLABLE NAVEEN DAMIAN MD Nov 13, 2024 16:18
--- NOTE | 2024-11-13 19:26 | DVHPN2 ---
Progress Note - Dictate Date Seen: Nov 13, 2024 Medical Necessity Reason Pt with a Central, PICC or Fol: Yes The following are medically ne: Central Line Subjective on pressor no family available pending HLOC transfer vital signs Vital Sign Date Time Temp Pulse Resp B/P (MAP) Pulse Ox O2 Delivery O2 Flow Rate FiO2 11/13/24 18:45 67 19 101/65 (77) 94 11/13/24 18:39 30 11/13/24 16:00 100.0 100.0 11/13/24 08:00 Mechanical Ventilator+ 11/11/24 08:00 10 Total Intake and Output 11/12/24 11/12/24 11/13/24 15:00 23:00 07:00 Intake Total 344.378 ml 543.128 ml 388.128 ml Output Total 0 ml 0 ml Balance 344.378 ml 543.128 ml 388.128 ml medications Current Medications Medications Dose Ordered Sig/Jared Route Start Time Stop Time Status Last Admin Dose Admin Ondansetron HCl 4 mg Q6HPRN PRN IV 11/07/24 20:30 11/08/24 21:14 4 MG Acetaminophen/ Hydrocodone Bitart 1 tab Q6HPRN PRN PO 11/07/24 20:30 11/10/24 16:38 1 TAB Acetaminophen 650 mg Q6HPRN PRN PO 11/07/24 20:30 Famotidine 20 mg Q2D PO 11/08/24 10:00 Hold 11/12/24 07:59 20 MG Morphine Sulfate 2 mg Q6HPRN PRN IV 11/08/24 05:00 11/11/24 01:45 2 MG Vancomycin HCl 0 ml @ 0 mls/hr UD IV 11/09/24 09:15 Midodrine 10 mg TID@0600,1200,1800 PO 11/09/24 12:00 11/13/24 18:12 10 MG Dopamine HCl/ Dextrose 250 ml @ 7.266 mls/ hr Q24H IV 11/11/24 00:00 11/13/24 07:41 7.266 MLS/HR Midazolam HCl 50 ml @ 1 mls/hr Q24H IV 11/11/24 08:15 11/11/24 08:50 1 MLS/HR Norepinephrine Bitartrate 250 ml @ 3.75 mls/hr Q24H IV 11/11/24 07:00 11/13/24 16:37 30 MLS/HR Piperacillin Sod/ Tazobactam Sod 100 ml @ 25 mls/hr Q12HR IV 11/11/24 10:00 11/13/24 09:53 25 MLS/HR Phenylephrine HCl 250 ml @ 30 mls/hr Q8H20M IV 11/11/24 14:45 Fentanyl Citrate 250 ml @ 2.5 mls/hr Q24H IV 11/11/24 17:45 11/12/24 22:35 7.5 MLS/HR Pantoprazole Sodium 50 ml @ 10 mls/hr Q5H IV 11/12/24 08:45 11/13/24 19:07 10 MLS/HR Diagnostic Test (Pha) 1 strip Q6HR 11/13/24 00:00 Cancel Insulin Human Regular PLEASE FOLLOW SLID... Q6HR SC 11/13/24 00:00 Cancel Amino Acids/ Electrolytes/ Dextrose 1,000 ml @ 42 mls/hr [id number] IV 11/13/24 08:00 UNV Amino Acids 0 ml @ 0 mls/hr PER PHARMACY IV 11/13/24 08:30 Diagnostic Test (Pha) 1 strip Q6HR 11/13/24 12:00 11/13/24 18:13 1 STRIP Insulin Human Regular FOLLOW SLIDING SCALE Q6HR ND 11/13/24 12:00 Dextrose 50 ml UD IV 11/13/24 10:15 Amino Acids 1,000 ml @ 41 mls/hr DAILY@2200 IV 11/13/24 22:00 objective General Appeara: Thin, Other (appears ill) HEENT: intuabted and sedated Pulmonary/Respiratory: Normal inspection, Normal breath sounds, Chest non- tender, Lungs clear Cardiovascular/Chest: Normal inspection, Regular rate, Normal Rhythm Abdominal Exam: Normal bowel sounds, Soft, No tenderness V BELT BUILDER Exam: Normal hearing, Normal speech, PERRL Neuro/Mental unable to assess Appearance: Disheveled, Other (flat affect) Skin Exam: Normal inspection, Normal color, Warm/dry laboratory and microbiology Laboratory Tests 11/13/24 03:30 Test 11/13/24 03:30 Range/Units Serum Glucose 127 H 74-106 mg/dL Assessment/Plan Patient is a 74-year-old male presents to the hospital with: septic shock Bacteremia : staphylococcus aureus ( MSSA) 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 discussed with Dr Yip however very unstable in septic shock on pressors repeat two sets of blood cultures Current Antibiotics: Vancomycin [Started 11/09]; vancomycin random is 26 ( in therapeutic range); hold the dose Zosyn [Started 11/09] on pressor his condition is life threatening. recommend removal of HD line plan for HLOC transfer, no family available discussed in detail with Dr Yip Crit time 35 minutes Thank you for consult. Dietary Evaluation Review Comments: when medically feasible, offer a combined CCHO-60 with Renal Standard 2gNa, 3 KCL, low phos diet. Poor appetite can be related to ESRD uremic symdrome; evaluate his eating behavior when possible. Expected Outcomes/Goals: controlled DM, less uremic symptoms, gradual weight gains. Plan discussed with: YASMANY Neil MD Nov 13, 2024 19:26
[2024-11-13] MEDS: AMINO ACID INFUSION IN D5W 1,000 ML IV SCH (20:21)
--- NOTE | 2024-11-13 21:04 | DVH ---
EXAM: CT HEAD WITHOUT CONTRAST INDICATION: unequal pupils TECHNIQUE: CT of the head without intravenous contrast. Radiation Dose Information: CT Dose: CTDI volume is 57.46 mGy. Dose-length product is 1036.0 mGy*cm The dose indicators for CT are the volume Computed Tomography (CT) Dose Index (CTDIvol) and the Dose Length Product (DLP), and are measured in units of mGy and mGy-cm, respectively. These indicators are not patient dose, but values generated from the CT scanner acquisition factors. The report includes radiation exposure data for exposures received during this examination. COMPARISON: HEAD WITHOUT CONTRAST on DOS: 02/01/22 FINDINGS: There is no evidence of acute intracranial hemorrhage, extra-axial collection, mass effect, midline s hift, herniation or hydrocephalus. Area of decreased attenuation posterior right parietal lobe which appears to be a change from the pre vious study 02/01/2022 The ventricles, sulci and cisterns are age appropriate. The huff-white differentiation is intact. Patchy periventricular and subcortical white matter hypoattenuation is nonspecific but may be related to small vessel ischemic disease. The visualized paranasal sinuses and mastoid air cells are clear. The surrounding soft tissues and osseous structures are unremarkable. IMPRESSION: 1. No acute intracranial hemorrhage. 2. Area of decreased attenuation in the posterior right parietal lobe deep white matter adjacent to t he posterior horn of the right lateral ventricle. This was not present on previous study of 2. This may represent a old infarct or subacute infarct recommend MRI nonemergent for more accurate e stimation of age.
[2024-11-13] MEDS: PHENYLEPHRINE INJ 80 MG in SODIUM CHL 0.9% 242 ML IV SCH (21:10)
--- NOTE | 2024-11-13 21:29 | DVHPN2 ---
Progress Note - Dictate Date Seen: Nov 13, 2024 Medical Necessity Reason Pt with a Central, PICC or Fol: Yes The following are medically ne: Central Line Subjective Patient seen and examined at bedside. intubated on mechanical ventilator. Overnight events reviewed. vital signs Vital Sign Date Time Temp Pulse Resp B/P (MAP) Pulse Ox O2 Delivery O2 Flow Rate FiO2 11/13/24 19:58 66 27 86/44 (58) 98 30 11/13/24 16:00 100.0 100.0 11/13/24 08:00 Mechanical Ventilator+ 11/11/24 08:00 10 Total Intake and Output 11/12/24 11/12/24 11/13/24 15:00 23:00 07:00 Intake Total 344.378 ml 543.128 ml 388.128 ml Output Total 0 ml 0 ml Balance 344.378 ml 543.128 ml 388.128 ml medications Current Medications Medications Dose Ordered Sig/Jared Route Start Time Stop Time Status Last Admin Dose Admin Ondansetron HCl 4 mg Q6HPRN PRN IV 11/07/24 20:30 11/08/24 21:14 4 MG Acetaminophen/ Hydrocodone Bitart 1 tab Q6HPRN PRN PO 11/07/24 20:30 11/10/24 16:38 1 TAB Acetaminophen 650 mg Q6HPRN PRN PO 11/07/24 20:30 Famotidine 20 mg Q2D PO 11/08/24 10:00 Hold 11/12/24 07:59 20 MG Morphine Sulfate 2 mg Q6HPRN PRN IV 11/08/24 05:00 11/11/24 01:45 2 MG Vancomycin HCl 0 ml @ 0 mls/hr UD IV 11/09/24 09:15 Midodrine 10 mg TID@0600,1200,1800 PO 11/09/24 12:00 11/13/24 18:12 10 MG Dopamine HCl/ Dextrose 250 ml @ 7.266 mls/ hr Q24H IV 11/11/24 00:00 11/13/24 07:41 7.266 MLS/HR Midazolam HCl 50 ml @ 1 mls/hr Q24H IV 11/11/24 08:15 11/11/24 08:50 1 MLS/HR Norepinephrine Bitartrate 250 ml @ 3.75 mls/hr Q24H IV 11/11/24 07:00 12/29/24 16:37 30 MLS/HR Piperacillin Sod/ Tazobactam Sod 100 ml @ 25 mls/hr Q12HR IV 11/11/24 10:00 11/13/24 09:53 25 MLS/HR Phenylephrine HCl 250 ml @ 30 mls/hr Q8H20M IV 11/11/24 14:45 Fentanyl Citrate 250 ml @ 2.5 mls/hr Q24H IV 11/11/24 17:45 11/12/24 22:35 7.5 MLS/HR Pantoprazole Sodium 50 ml @ 10 mls/hr Q5H IV 11/12/24 08:45 11/13/24 19:07 10 MLS/HR Diagnostic Test (Pha) 1 strip Q6HR 11/13/24 00:00 Cancel Insulin Human Regular PLEASE FOLLOW SLID... Q6HR OR 11/13/24 00:00 Cancel Amino Acids/ Electrolytes/ Dextrose 1,000 ml @ 42 mls/hr [id number] IV 11/13/24 08:00 UNV Amino Acids 0 ml @ 0 mls/hr PER PHARMACY IV 11/13/24 08:30 Diagnostic Test (Pha) 1 strip Q6HR 11/13/24 12:00 11/13/24 18:13 1 STRIP Insulin Human Regular FOLLOW SLIDING SCALE Q6HR OR 11/13/24 12:00 Dextrose 50 ml UD IV 11/13/24 10:15 Amino Acids 1,000 ml @ 41 mls/hr DAILY@2200 IV 11/13/24 22:00 11/13/24 20:21 41 MLS/HR objective Gen.: Patient lying in bed in medical ICU. Intubated on mechanical ventilator. Head: Normocephalic, atraumatic. Eyes: PERRLA. Ears: Normal external anatomy. Throat: Endotracheal tube and orogastric tube in place. Neck: Supple, trachea midline. Chest: Transmitted breath sounds bilaterally. Decreased air entry bilaterally. No wheezing. Bibasilar crackles. Cardiovascular: Positive S1, positive S2. Regular rate and rhythm. Abdomen: Positive bowel sounds in all 4 quadrants. Soft, nontender, nondistended. : [place] in place. Normal external genitalia. Rectal: Deferred. Skin: Warm, dry. Intact. Extremities: 2+ radial pulses bilaterally. No lower extremity edema. Neuro: Off sedation laboratory and microbiology Laboratory Tests 11/13/24 03:30 Test 11/13/24 03:30 Range/Units Serum Glucose 127 H 74-106 mg/dL Assessment/Plan Impression: Acute hypoxic respiratory failure On mechanical ventilator End-stage renal disease on hemodialysis Pleural effusion, right Atelectasis Pulmonary edema Events: Patient remains intubated, on vent Vent settings; AC mode with RR 26, VT 550, PEEP 5, FiO2 of 30% Off sedation On Levophed, dopamine 2.5 mcg/min for hemodynamic support Titrate to keep MAP above 65 mmHg/SBP above 90 mmHg. Lactic acid of 10.9 Hemodialysis per Nephrology Monitor renal function ABG notable for acidemia (pH 7.0) due to metabolic acidosis S/p bronchoscopy w/ RML BAL on 11/11/24. Copious secretions/mucous plugs throughout R1-R10, L1-L10. BAL cultures grew rare Staph aureus. Continue antibiotics Continue bronchodilators Incentive spirometry D50 due to hypoglycemia Protonix drip for GI prophylaxis PLan for Clinimix for nutritional support GI recommendations appreciated. Labs and imaging reviewed. Rest of plan as noted below. Plan: 11/08 - Chest x-ray imaging report reviewed. Bibasilar airspace opacities. Moderate right pleural effusion. No pneumothorax. Pulmonary edema. I was called emergently to the bedside to evaluate patient due to respiratory distress. Limited chest US demonstrated moderate to large right pleural effusion. S/p right thoracentesis on 11/08/24 - 1000 mL sero-sanguinous fluid removed from right pleural space. Follow up cultures and cytology. S/p intubation and placement on mechanical ventilator. Vent settings; AC mode with RR 26, VT 550, PEEP 5, FiO2 of 30% Titrate FIO2 to keep O2 saturation above 90%. VAP bundle. Daily ABG and CXR while intubated Off sedation On pressors for hemodynamic support Titrate to keep mean arterial pressure greater than 65 mmHg. Monitor renal function Monitor ins and outs Monitor electrolytes. Supplement as necessary. Monitor platelet count Hemodialysis per Nephrology GI prophylaxis DVT prophylaxis - SCDs. Prognosis: Poor given multiple comorbidities. Condition: Critical Rest of plan per hospitalist and other consultants. A total of 35 minutes of critical care time was spent reviewing the patient record, examining the patient, making a diagnostic and therapeutic plan, discussing this plan with the medical personnel, following up on diagnostic studies and following the patient for clinical stability excluding any and all procedures. At least 50% of this time was spent in direct, [id number] contact. Thank you Dr. Yip for allowing me to participate in this patient's care. Further recommendations will depend on patient's clinical course. Please do not hesitate to contact me if you have any questions or concerns. This medical document was created using an electronic medical record system with [employer] dictation system. Although this document has been carefully reviewed, there may still be some phonetic and typographical errors. These areas are purely typographical due to imperfections of the software programs, and do not reflect any compromise in the patient's medical care. Dietary Evaluation Review Comments: when medically feasible, offer a combined CCHO-60 with Renal Standard 2gNa, 3 KCL, low phos diet. Poor appetite can be related to ESRD uremic symdrome; evaluate his eating behavior when possible. Expected Outcomes/Goals: controlled DM, less uremic symptoms, gradual weight gains. Plan discussed with: Other (MATTHEW Kyle) Critical Care Time(min): 35 BETH LEMON MD Nov 13, 2024 21:29
[2024-11-13] MEDS: CATHFLO ACTIVASE (ALTEPLASE) 2 MG VIAL ONE (21:35)
[2024-11-13] MEDS: STERILE WATER 20 ML ONE (21:44)
[2024-11-13 21:50] LABS: Base Excess -24.1 mmol/L (-2.0-3.0)
[2024-11-13] MEDS: VASOPRESSIN 20 UNITS in SODIUM CHL 0.9% 99 ML IV SCH (21:50)
[2024-11-13] MEDS: DOPamine 1600MCG/ML D5W 250 ML IV SCH (22:05)
[2024-11-13] MEDS ORDERED: NOREPINEPHRINE BITARTRATE 32 MG in SODIUM CHL 0.9% 218 ML IV SCH (22:15)
[2024-11-13] MEDS: SODIUM BICARB 8.4% 50Meq/50ml SYR Vial IV ONE ×3 (22:20→22:35)
[2024-11-13] MEDS: PHENYLEPHRINE HCL 10 MG/ML VL ONE (22:21)
[2024-11-13] MEDS: CATHFLO ACTIVASE (ALTEPLASE) 2 MG VIAL IV ONE (22:34)
[2024-11-13] MEDS: VASOPRESSIN 20 UNIT/ML ONE (22:35)
[2024-11-13 22:42] LABS: Basophils # (auto) 0 10 ^3/uL (0-0.2); Eosinophils # (auto) 0 10 ^3/uL (0-0.8); Lymphocytes # (auto) 0.8 10 ^3/uL (0.4-5.4); Monocytes # (auto) 0.4 10 ^3/uL (0-1.3); Monocytes % (auto) 3.7 % (0.0-12.0)
[2024-11-13 22:43] LABS: Basophils % (auto) 0.1 % (0.0-2.0); Eosinophils % (auto) 0.5 % (0.0-7.0); Hematocrit 46.7 % (41.0-53.0); Hemoglobin 15.2 g/dL (13.5-17.5); Lymphocytes % (auto) 7.3 % (10.0-50.0); Mean Corpuscular Hemoglobin 32.7 pg (28.0-32.0); Mean Corpuscular Hgb Conc. 32.5 g/dL (32.0-36.0); Mean Corpuscular Volume 100.5 fL (80.0-100.0); Neutrophils # (auto) 9.2 10 ^3/uL (1.6-8.6); Neutrophils % (auto) 88.4 % (37.0-80.0); Nucleated Red Blood Cells % 0.7 %; Platelet Count (auto) 40 10^3/uL (140-450); Red Blood Cells 4.65 10^6/uL (4.5-5.90); Red Cell Distribution Width 18.9 % (11.8-14.3); White Blood Cell 10.4 10^3/uL (4.4-10.8)
[2024-11-13] MEDS: SODIUM CHLORIDE 0.9% 1,000 ML IV ONE (22:45)
[2024-11-13 23:13] LABS: Lactic Acid w/Reflex 16.3 mmol/L (0.4-2.0)
[2024-11-13] MEDS: ALBUMIN 25% 100 ML IV SCH (23:43)
[2024-11-13] MEDS: SODIUM BICARB 50mEq/50ml Vial 150 ML in D5W 5% 1,000 ML IV SCH (23:43)
[2024-11-13] MEDS: EPINEPHrine HCL 500 ML IV ONE (23:50)
[2024-11-13] MEDS: EPINEPHrine HCL 1 MG/1 ML AMP ONE (23:50)
[2024-11-13] MEDS: EPINEPHrine HCL INJECTION 16 MG in D5W 5% 234 ML IV SCH (23:58)
[2024-11-14] VITALS (45 sets, daily range): BP systolic 52–119; BP diastolic 31–88; PULSE 60–87; RESP 15–26; TEMP 96.4–98.1
[2024-11-14] MEDS: SODIUM BICARB 8.4% 50Meq/50ml SYR INJ ONE (00:09)
[2024-11-14 00:17] LABS: Anisocytosis Slight; Large Platelets FEW; Macrocytosis Slight; Ovalocytes FEW; Platelet Estimate Decreased
[2024-11-14 00:20] LABS: Anion Gap 27.00001 (5-15); BUN/Creatinine Ratio 9.2 (10.0-20.0); Chloride 103 mmol/L (98-107); Glucose 92 mg/dL (74-106); Sodium 140 mmol/L (136-145)
[2024-11-14 00:25] LABS: Alanine Aminotransferase 887 U/L (7-40); Albumin 1.9 g/dL (3.2-4.8); Alkaline Phosphatase 124 U/L (46-116); Bilirubin, Total 2.4 mg/dL (0.2-1.0); Blood Urea Nitrogen 51 mg/dL (9-23); Calcium 7.2 mg/dL (8.7-10.4); Total Protein 3.5 g/dL (5.7-8.2)
[2024-11-14 00:26] LABS: Carbon Dioxide < 10 mmol/L (20-31)
[2024-11-14 00:54] LABS: Aspartate Aminotransferase 2849 U/L (13-40)
[2024-11-14] MEDS: CALCIUM GLUC 1,000mg/50ml-NS 50 ML IV ONE ×3 (00:59→06:12)
[2024-11-14] MEDS: CALCIUM GLUC 1,000mg/50ml-NS 100 ML IV ONE (01:00)
[2024-11-14] MEDS: DEXTROSE 50% SYRINGE 50 ML IV ONE (01:00)
[2024-11-14] MEDS: ALBUTEROL SULF 2.5 MG/0.5ML(0.5%) NEB SOLN NEB ONE ×2 (01:01→06:24)
[2024-11-14] MEDS: InsuLIN REG 1unit/0.01ml Soln (100units/ml) IV ONE ×2 (01:08→06:14)
[2024-11-14] MEDS: DEXTROSE (50%) 50ML SYRG IV ONE ×2 (01:08→06:17)
[2024-11-14] MEDS: SODIUM BICARB 8.4% 50Meq/50ml SYR Vial IV ONE ×2 (02:08→06:17)
[2024-11-14 04:18] LABS: Basophils # (auto) 0 10 ^3/uL (0-0.2); Basophils % (auto) 0.3 % (0.0-2.0); Eosinophils # (auto) 0 10 ^3/uL (0-0.8); Eosinophils % (auto) 0.5 % (0.0-7.0); Hematocrit 39.7 % (41.0-53.0); Hemoglobin 11.9 g/dL (13.5-17.5); Lymphocytes # (auto) 0.9 10 ^3/uL (0.4-5.4); Lymphocytes % (auto) 9.9 % (10.0-50.0); Mean Corpuscular Hemoglobin 32.7 pg (28.0-32.0); Mean Corpuscular Hgb Conc. 29.9 g/dL (32.0-36.0); Mean Corpuscular Volume 109.5 fL (80.0-100.0); Monocytes # (auto) 0.3 10 ^3/uL (0-1.3); Monocytes % (auto) 3.8 % (0.0-12.0); Neutrophils # (auto) 7.8 10 ^3/uL (1.6-8.6); Neutrophils % (auto) 85.5 % (37.0-80.0); Nucleated Red Blood Cells % 1.2 %; Platelet Count (auto) 23 10^3/uL (140-450); Red Blood Cells 3.62 10^6/uL (4.5-5.90); White Blood Cell 9.1 10^3/uL (4.4-10.8)
[2024-11-14 04:30] LABS: Anion Gap 33.00001 (5-15); BUN/Creatinine Ratio 9.7 (10.0-20.0); Sodium 140 mmol/L (136-145)
[2024-11-14 04:39] LABS: Red Cell Distribution Width 20.2 % (11.8-14.3)
[2024-11-14 04:42] LABS: Alanine Aminotransferase 844 U/L (7-40); Albumin 2.1 g/dL (3.2-4.8); Alkaline Phosphatase 136 U/L (46-116); Aspartate Aminotransferase 3524 U/L (13-40); Blood Urea Nitrogen 56 mg/dL (9-23); Calcium 7.8 mg/dL (8.7-10.4); Carbon Dioxide < 10 mmol/L (20-31); Chloride 97 mmol/L (98-107); Glucose 173 mg/dL (74-106); Magnesium 2.8 mg/dL (1.6-2.6); Phosphorus 13.3 mg/dL (2.4-5.1); Potassium 6.3 mmol/L (3.5-5.1); Total Protein 3.6 g/dL (5.7-8.2)
[2024-11-14 04:46] LABS: Prothrombin Time 58.8 sec (9.3-11.8)
[2024-11-14] MEDS: PHENYLEPHRINE IV 250 ML IV ONE (05:04)
[2024-11-14] MEDS: PHENYLEPHRINE HCL 10 MG/ML VL ONE (05:04)
[2024-11-14 05:10] LABS: INR 6.36 (0.9-1.15)
[2024-11-14 05:21] LABS: Triglycerides 219 mg/dL (< 150)
--- NOTE | 2024-11-14 05:52 | DVH ---
CHEST RADIOGRAPH Indication: RESPIRATORY FAILURE Technique: Single frontal view of the chest was obtained COMPARISON: XY CHEST PORTABLE on DOS: 11/13/24, XY CHEST PORTABLE on DOS: 11/12/24, XY CHEST XRAY 1 V IEW on DOS: 11/11/24, XY CHEST PORTABLE on DOS: 11/11/24, XY CHEST XRAY 1 VIEW on DOS: 11/08/24, XY C HEST PORTABLE on DOS: 11/13/24 FINDINGS: Lines and Tubes: Endotracheal tube, enteric catheter, left and right central venous catheter is in sa tisfactory position. Left chest wall pacemaker. Lungs: Hazy right lung airspace disease. Pleura: No effusion. No pneumothorax. Cardiomediastinal contours: Unremarkable Bones: Unremarkable IMPRESSION: Lines and tubes in satisfactory position. No significant interval change.
[2024-11-14] MEDS ORDERED: CALCIUM GLUC 1,000mg/50ml-NS 50 ML IV ONE (06:00)
[2024-11-14 07:11] LABS: Base Excess -24.6 mmol/L (-2.0-3.0)
--- NOTE | 2024-11-14 07:56 | RESUS ---
CODE BLUE ASSESSSMENT History of Events History of Events: 74 y/o M admitted on 11/07, he has a Hx of AFIB, DM, ESRD w/HD M/W/F, HTN, pacemaker, and tobacco use, is BIBA for c/o generalized weakness and failure to thrive, today. Per EMS report, patient's neighbors called on patient behalf after endorsing on having generalized weakness and being unmotivated and unable to performed day-to-day tasks for the past 2x months. Patient is stated to live alone and last received dialysis on 11/04/24. On 11/11 pt was intubated and transferred to icu. Tonight pt became bradycardic then pulseless. Initial Information Date: Nov 14, 2024 Time: 06:30 Location of Arrest: ER Arrest Witnessed: Yes CPR started initial time: 06:30 CPR started by whom: Hospital Staff Pre-Hospital Care: ACLS Type of arrest: Cardiac, Respiratory, Adult, Witnessed Spontaneous Respirations: No Pulse Present: No Monitoring: ECG, Pulse Oximetry, Apnea, Telemetry Crash Cart Opened and Supplies: Yes Airway Ventilation Breathing at Onset: Apneic O2 Sat by Pulse Oximetry: 0 Oxygen Delivery Method: Mechanical Ventilator Oxygen 100% Time of first Assisted Ventila: 06:30 Artificial Ventilation: Bag/Endo tube Intubation Size: 8.0 cuffed Intubated by: previouly intubated Intubated orally: Yes Intubated Nasaly: No Tube secured at: 26 Circulation Circulation : Time: 06:30 Pulse Rate (adult): 0 Blood Pressure Systolic: 0 Blood Pressure Diastolic: 0 Temperature (Fahrenheit): 93.6 Defibrillation Defbrillation #1: Time Defibrillator Applied: 06:32 EKG Rhythm: V-Fibrillation Compressions: Device Compressions Hold/Resume: 0632 Time Defibrillator Shocked Pt.: 06:32 Defib. Joules: 150 Pulse Present: No EKG Rhythm: V-Fibrillation Defbrillation #2: Time Defibrillator Applied: 06:34 EKG Rhythm: V-Fibrillation Compressions: Device Compressions Hold/Resume: 0634 Time Defibrillator Shocked Pt.: 06:34 Defib. Joules: 200 Pulse Present: No EKG Rhythm: V-Fibrillation Defbrillation #3: Time Defibrillator Applied: 06:36 EKG Rhythm: V-Fibrillation Compressions: Device Compressions Hold/Resume: 0636 Time Defibrillator Shocked Pt.: 06:36 Defib. Joules: 200 Defbrillation #4: Time Defibrillator Applied: 06:39 EKG Rhythm: V-Fibrillation Compressions: Device Compressions Hold/Resume: 0639 Time Defibrillator Shocked Pt.: 06:39 Defib. Joules: 200 EKG Rhythm: V-Fibrillation Procedure - IV Procedure - IV #1: IV Side: Left IV Location: Internal Jugular IV Catheter Type: Triple Lumen Cath IV Placed: In Hospital IV Placed by previously placed IV Line Care: Saline Flush Procedure - IV #2: IV Side: Right IV Location: Upper Arm Anterior IV Catheter Type: Saline Lock IV Placed: In Hospital IV Placed by previously placed IV Gauge: 20 IV Line Care: Saline Flush Medications & Response Medications and Responses #1: Medication Time: 06:32 ADULT Medications Given ADULT: Epinephrine 1 mg, Sodium Bacarbinate 50 meq, Calcium Chloride 10 mL Route of Administration: IV Heart Rate: 0 EKG Rhythm: V-Fibrillation Blood Pressure Systolic: 0 Blood Pressure Diastolic: 0 Respiratory Rate: 0 O2 Sat by Pulse Oximetry: 0 EKG Rhythm: V-Fibrillation Comment no pulse 0633 Medications and Responses #2: Medication Time: 06:33 ADULT Medications Given ADULT: Epinephrine 1 mg Route of Administration: IO Heart Rate: 0 EKG Rhythm: V-Fibrillation Blood Pressure Systolic: 0 Blood Pressure Diastolic: 0 Respiratory Rate: 0 O2 Sat by Pulse Oximetry: 0 EKG Rhythm: V-Fibrillation Comment 0636 no pulse Medications and Responses #3: Medication Time: 06:36 ADULT Medications Given ADULT: Epinephrine 1 mg, Sodium Bacarbinate 50 meq Route of Administration: IO Heart Rate: 0 EKG Rhythm: V-Fibrillation Blood Pressure Systolic: 0 Blood Pressure Diastolic: 0 Respiratory Rate: 0 O2 Sat by Pulse Oximetry: 0 EKG Rhythm: V-Fibrillation Comment 0640, ROSC, HR 68 no bp, 0656 pt bradycardic, 0657 pulseless. Medications and Responses #4: Medication Time: 06:57 ADULT Medications Given ADULT: Epinephrine 1 mg Route of Administration: IO Heart Rate: 0 EKG Rhythm: V-Fibrillation Blood Pressure Systolic: 0 Blood Pressure Diastolic: 0 Respiratory Rate: 0 O2 Sat by Pulse Oximetry: 0 EKG Rhythm: Paced Comment 0659 pt has no pulse, pronounced by Dr Solares Pacing Pacer Pads Applied and Pacing: Yes Procedure - NG/OG Tube Procedure - NG/OG Tube : Type of gastric tube placed: OG Tube Size: 16 GI Tube Secured: Yes Comment previously placed Procedure - Sierra Catheter Urinary Catheter Type/Location: Uretheral (Sierra) Urinary Catheter Size: 16 Comment: previously placed Nurses Notes Brayan Coma Scale Eye Opening: None (1) [place] Coma Scale Verbal: None (1) [place] Coma Scale Motor: None (1) Pupil Reaction: Non Reactive Bedside Blood Glucose: 151 EKG Rhythm: Paced Time Code Ended Time Code Ended: 06:59 Post Arrest Status: Outcome of code: Unsuccessful Patient pronounced by: Dr. Solares Time patient pronounced: 06:59 Family notified: No Attending called: Yes Code Team Present: DR SOLARES, SRINI SIMON RN HS, JEFFREY SOLE ROUGHER, LUIS ARMANDO CASTRO PRIMARY, AMARILYS RN, INGRID RT. Post Resuscitation Neurologica Pupil Size: 4 SRINI DEY Nov 14, 2024 07:56
--- NOTE | 2024-11-14 07:59 | DVHPN2 ---
Progress Note - Dictate Date Seen: Nov 14, 2024 (Late entry Time of visit 5:30 a.m.) Medical Necessity Reason Pt with a Central, PICC or Fol: Yes The following are medically ne: Central Line Subjective Communication from nurse at [facility] Patient is in critical condition maxed out on every vasopressor 6 times a bicarb were given to correct acidosis INR is elevated to 6.36 and platelets are down to 23 Hemoglobin is 11.9 but no more active rectal bleeding was reported Ammonia level is 107 vital signs Vital Sign Date Time Temp Pulse Resp B/P (MAP) Pulse Ox O2 Delivery O2 Flow Rate FiO2 11/14/24 06:45 60 26 11/14/24 06:00 30 11/14/24 04:00 98.1 98.1 11/13/24 21:35 24 11/13/24 20:00 Mechanical Ventilator+ Total Intake and Output 11/13/24 11/13/24 11/14/24 15:00 23:00 07:00 Intake Total 500.128 ml 788.400 ml 2482.238 ml Output Total 100 ml 0 ml Balance 500.128 ml 688.400 ml 2482.238 ml medications Current Medications Medications Dose Ordered Sig/Jared Route Start Time Stop Time Status Last Admin Dose Admin Ondansetron HCl 4 mg Q6HPRN PRN IV 11/07/24 20:30 11/08/24 21:14 4 MG Acetaminophen/ Hydrocodone Bitart 1 tab Q6HPRN PRN PO 11/07/24 20:30 11/10/24 16:38 1 TAB Acetaminophen 650 mg Q6HPRN PRN PO 11/07/24 20:30 Famotidine 20 mg Q2D PO 11/08/24 10:00 Hold 11/12/24 07:59 20 MG Morphine Sulfate 2 mg Q6HPRN PRN IV 11/08/24 05:00 11/11/24 01:45 2 MG Vancomycin HCl 0 ml @ 0 mls/hr UD IV 11/09/24 09:15 Midodrine 10 mg TID@0600,1200,1800 PO 11/09/24 12:00 11/13/24 18:12 10 MG Midazolam HCl 50 ml @ 1 mls/hr Q24H IV 11/11/24 08:15 11/11/24 08:50 1 MLS/HR Norepinephrine Bitartrate 250 ml @ 3.75 mls/hr Q24H IV 11/11/24 07:00 11/14/24 03:32 56.25 MLS/HR Piperacillin Sod/ Tazobactam Sod 100 ml @ 25 mls/hr Q12HR IV 11/11/24 10:00 11/13/24 22:35 25 MLS/HR Fentanyl Citrate 250 ml @ 2.5 mls/hr Q24H IV 11/11/24 17:45 11/12/24 22:35 7.5 MLS/HR Pantoprazole Sodium 50 ml @ 10 mls/hr Q5H IV 11/12/24 08:45 11/14/24 06:01 10 MLS/HR Diagnostic Test (Pha) 1 strip Q6HR 11/13/24 00:00 Cancel Insulin Human Regular PLEASE FOLLOW SLID... Q6HR NE 11/13/24 00:00 Cancel Amino Acids/ Electrolytes/ Dextrose 1,000 ml @ 42 mls/hr [id number] IV 11/13/24 08:00 UNV Amino Acids 0 ml @ 0 mls/hr PER PHARMACY IV 11/13/24 08:30 Diagnostic Test (Pha) 1 strip Q6HR 11/13/24 12:00 11/14/24 06:17 1 STRIP Insulin Human Regular FOLLOW SLIDING SCALE Q6HR NE 11/13/24 12:00 Dextrose 50 ml UD IV 11/13/24 10:15 Amino Acids 1,000 ml @ 41 mls/hr DAILY@2200 IV 11/13/24 22:00 11/13/24 20:21 41 MLS/HR Phenylephrine HCl 80 mg/Sodium Chloride 250 ml @ 7.5 mls/hr Q24H IV 11/13/24 22:15 11/14/24 05:12 33.75 MLS/HR Norepinephrine Bitartrate 32 mg/ Sodium Chloride 250 ml @ 0.938 mls/ hr Q24H IV 11/13/24 22:15 UNV Epinephrine HCl 16 mg/Dextrose 250 ml @ 1.875 mls/ hr Q24H IV 11/13/24 22:15 11/13/24 23:58 1.875 MLS/HR Vasopressin 20 units/Sodium Chloride 100 ml @ 9 mls/hr [id number] IV 11/13/24 22:15 12/29/24 21:50 9 MLS/HR Sodium Bicarbonate 150 ml/Dextrose 1,150 ml @ 70 mls/hr [id number] IV 11/13/24 22:15 11/13/24 23:43 70 MLS/HR Albumin Human 100 ml @ 100 mls/hr Q8H IV 11/13/24 22:15 11/14/24 15:14 11/14/24 06:24 100 MLS/HR Dopamine HCl/ Dextrose 250 ml @ 14.494 mls/ hr [id number] IV 11/14/24 00:15 11/14/24 06:03 57.975 MLS/HR objective HEENT pupils are unequal Neck is supple CV is S1-S2 regular rate and rhythm Respiratory bilateral basal crackles GI positive bowel sound Extremities 1+ edema FOLLOW UP MANAGER INTUBATED AND SEDATED laboratory and microbiology Laboratory Tests 11/14/24 03:32 Test 11/14/24 03:32 Range/Units Serum Glucose 173 H 74-106 mg/dL Problems(with codes): (1) Staphylococcus aureus bacteremia with sepsis (2) Endocarditis (3) Depression (4) Acute respiratory failure (5) Pleural effusion, right (6) ESRD needing dialysis (7) Generalized weakness (8) CHF (congestive heart failure) (9) Rectal bleeding Prognosis Assessment plan Patient's condition is critical Recommend transfusing 1 unit FFP and one pack of platelets if a two doctor consent is obtained Continue IV antibiotics Continue pressor support Monitor labs Prognosis very poor Dietary Evaluation Review Comments: when medically feasible, offer a combined CCHO-60 with Renal Standard 2gNa, 3 KCL, low phos diet. Poor appetite can be related to ESRD uremic symdrome; evaluate his eating behavior when possible. Expected Outcomes/Goals: controlled DM, less uremic symptoms, gradual weight gains. Plan discussed with: Other (ICU nurse Radha) JUAN FREEMAN MD Nov 14, 2024 07:59
[2024-11-14 08:49] LABS: Anisocytosis Slight; Macrocytosis Slight; Platelet Estimate Decrea
[2024-11-14 08:50] LABS: Ovalocytes FEW
[2024-11-14] MEDS ORDERED: CALCIUM CHLOR(10%) 100MG/ML 10ML SYRINGE IV ONE (09:29)
[2024-11-14 09:52] LABS: Hepatitis B Core Total AB Negative (Negative)
[2024-11-14 14:23] LABS: Hepatitis A Total Antibody Positive (Negative); Hepatitis B Surface Antibody Negative (Negative); Hepatitis B Surface Antigen Negative (Negative); Hepatitis C Antibody Negative (Negative)
--- NOTE | 2024-11-14 23:30 | DVHPN2 ---
Progress Note - Dictate Date Seen: Nov 14, 2024 Medical Necessity Reason Pt with a Central, PICC or Fol: Yes The following are medically ne: Central Line Subjective Patient seen and examined at bedside. intubated on mechanical ventilator. Overnight events reviewed. vital signs Vital Sign Date Time Temp Pulse Resp B/P (MAP) Pulse Ox O2 Delivery O2 Flow Rate FiO2 11/14/24 07:56 200.5 0 0 Mechanical Ventilator 11/14/24 06:45 26 11/14/24 06:00 30 Total Intake and Output 11/13/24 11/13/24 11/14/24 15:00 23:00 07:00 Intake Total 500.128 ml 788.400 ml 2482.238 ml Output Total 100 ml 0 ml Balance 500.128 ml 688.400 ml 2482.238 ml medications Current Medications Medications Dose Ordered Sig/Jared Route Start Time Stop Time Status Last Admin Dose Admin Diagnostic Test (Pha) 1 strip Q6HR 11/13/24 00:00 Cancel Insulin Human Regular PLEASE FOLLOW SLID... Q6HR SC 11/13/24 00:00 Cancel Amino Acids/ Electrolytes/ Dextrose 1,000 ml @ 42 mls/hr [id number] IV 11/13/24 08:00 UNV Norepinephrine Bitartrate 32 mg/ Sodium Chloride 250 ml @ 0.938 mls/ hr Q24H IV 11/13/24 22:15 UNV objective Gen.: Patient lying in bed in medical ICU. Intubated on mechanical ventilator. Head: Normocephalic, atraumatic. Eyes: PERRLA. Ears: Normal external anatomy. Throat: Endotracheal tube and orogastric tube in place. Neck: Supple, trachea midline. Chest: Transmitted breath sounds bilaterally. Decreased air entry bilaterally. No wheezing. Bibasilar crackles. Cardiovascular: Positive S1, positive S2. Regular rate and rhythm. Abdomen: Positive bowel sounds in all 4 quadrants. Soft, nontender, nondistended. : Sierra in place. Normal external genitalia. Rectal: Deferred. Skin: Warm, dry. Intact. Extremities: 2+ radial pulses bilaterally. No lower extremity edema. Neuro: Off sedation laboratory and microbiology Laboratory Tests 11/14/24 03:32 Test 11/14/24 03:32 Range/Units Serum Glucose 173 H 74-106 mg/dL Assessment/Plan Impression: Acute hypoxic respiratory failure On mechanical ventilator End-stage renal disease on hemodialysis Pleural effusion, right Atelectasis Pulmonary edema Events: Patient remains intubated, on vent Vent settings; AC mode with RR 26, VT 550, PEEP 5, FiO2 of 30% On Levophed, dopamine 2.5 mcg/min for hemodynamic support Titrate to keep MAP above 65 mmHg/SBP above 90 mmHg. Lactic acid of 10.9 Hemodialysis per Nephrology Monitor renal function ABG notable for acidemia (pH 7.0) due to metabolic acidosis S/p bronchoscopy w/ RML BAL on 11/11/24. Copious secretions/mucous plugs throughout R1-R10, L1-L10. BAL cultures grew rare Staph aureus. Continue antibiotics Continue bronchodilators Incentive spirometry D50 due to hypoglycemia Patient decompensated Suffered cardiac arrest Multiple ampules of bicarbonate were given Patient was developing worsening metabolic acidosis Protonix drip for GI prophylaxis PLan for Clinimix for nutritional support GI recommendations appreciated. Labs and imaging reviewed. Rest of plan as noted below. Plan: 11/08 - Chest x-ray imaging report reviewed. Bibasilar airspace opacities. Moderate right pleural effusion. No pneumothorax. Pulmonary edema. I was called emergently to the bedside to evaluate patient due to respiratory distress. Limited chest US demonstrated moderate to large right pleural effusion. S/p right thoracentesis on 11/08/24 - 1000 mL sero-sanguinous fluid removed from right pleural space. Follow up cultures and cytology. S/p intubation and placement on mechanical ventilator. Vent settings; AC mode with RR 26, VT 550, PEEP 5, FiO2 of 30% Titrate FIO2 to keep O2 saturation above 90%. VAP bundle. Daily ABG and CXR while intubated Off sedation On pressors for hemodynamic support Titrate to keep mean arterial pressure greater than 65 mmHg. Monitor renal function Monitor ins and outs Monitor electrolytes. Supplement as necessary. Monitor platelet count Hemodialysis per Nephrology GI prophylaxis DVT prophylaxis - SCDs. Prognosis: Poor given multiple comorbidities. Condition: Critical Rest of plan per hospitalist and other consultants. A total of 35 minutes of critical care time was spent reviewing the patient record, examining the patient, making a diagnostic and therapeutic plan, discussing this plan with the medical personnel, following up on diagnostic studies and following the patient for clinical stability excluding any and all procedures. At least 50% of this time was spent in direct, [id number] contact. Thank you Dr. Yip for allowing me to participate in this patient's care. Further recommendations will depend on patient's clinical course. Please do not hesitate to contact me if you have any questions or concerns. This medical document was created using an electronic medical record system with [employer] system. Although this document has been carefully reviewed, there may still be some phonetic and typographical errors. These areas are purely typographical due to imperfections of the software programs, and do not reflect any compromise in the patient's medical care. Dietary Evaluation Review Comments: when medically feasible, offer a combined CCHO-60 with Renal Standard 2gNa, 3 KCL, low phos diet. Poor appetite can be related to ESRD uremic symdrome; evaluate his eating behavior when possible. Expected Outcomes/Goals: controlled DM, less uremic symptoms, gradual weight gains. Plan discussed with: Other (MATTHEW Garcia, RT, MD) Critical Care Time(min): 35 BETH LEOMN MD Nov 14, 2024 23:30
--- NOTE | 2024-11-17 14:15 | DVHDS2 ---
Summary Date of Admission Nov 07, 2024 at 20:24 Date and Time of Expiration: Nov 14, 2024 06:59 Labs/Diagnostic Data: Laboratory Results Test 11/14/24 06:10 11/14/24 06:08 11/14/24 03:32 11/14/24 00:20 Blood Gas Specimen Type Arterial Blood Gas Sample Site Arterial line Blood Gas Patient Temperature 37.0 Arterial Blood Date Drawn [id number] Arterial Blood pH 6.962 (7.350-7.450) Arterial Blood Partial Pressure CO2 28.1 mmHg (35.0-48.0) Arterial Blood Partial Pressure O2 102.2 mmHg (83.0-108.0) Arterial Blood HCO3 6.2 mmol/L (21.0-28.0) Arterial Blood Oxygen Saturation 94.1 % (94.0-98.0) Arterial Blood Base Excess -24.6 mmol/L (-2.0-3.0) Arterial Blood Oxyhemoglobin 93.8 % (94.0-98.0) Arterial Blood Carboxyhemoglobin 0.0 % (0.5-1.5) Arterial Blood Methemoglobin 0.3 % (0.0-1.5) Ammon Test N/a Blood Gas Total Hemoglobin 12.80 g/dL (13.5-17.5) Blood Gas Set Respiration Rate 26.0 Blood Gas Modality Vent - ac FiO2 % 30.0 Blood Gas Tidal Volume 550.0 Blood Gas PEEP or CPAP 5.0 Blood Gas Critical Value Read Back Yes Blood Gas Notified Whom Dr. maurice beckett Blood Gas Notified Time [id number] Blood Gas Notified By [place] Installer melecio yan POC Glucose 151 mg/dl (70-106) White Blood Count 9.1 10^3/uL (4.4-10.8) Red Blood Count 3.62 10^6/uL (4.5-5.90) Hemoglobin 11.9 g/dL (13.5-17.5) Hematocrit 39.7 % (41.0-53.0) Mean Corpuscular Volume 109.5 fL (80.0-100.0) Mean Corpuscular Hemoglobin 32.7 pg (28.0-32.0) Mean Corpuscular Hemoglobin Concent 29.9 g/dL (32.0-36.0) Red Cell Distribution Width 20.2 % (11.8-14.3) Platelet Count 23 10^3/uL (140-450) Mean Platelet Volume 11.0 fL (6.9-10.8) Neutrophils (%) (Auto) 85.5 % (37.0-80.0) Lymphocytes (%) (Auto) 9.9 % (10.0-50.0) Monocytes (%) (Auto) 3.8 % (0.0-12.0) Eosinophils (%) (Auto) 0.5 % (0.0-7.0) Basophils (%) (Auto) 0.3 % (0.0-2.0) Neutrophils # (Auto) 7.8 10 ^3/uL (1.6-8.6) Lymphocytes # (Auto) 0.9 10 ^3/uL (0.4-5.4) Monocytes # (Auto) 0.3 10 ^3/uL (0-1.3) Eosinophils # (Auto) 0 10 ^3/uL (0-0.8) Basophils # (Auto) 0 10 ^3/uL (0-0.2) Nucleated Red Blood Cells 1.2 % Platelet Estimate Decrea Anisocytosis (manual) Slight Macrocytosis Slight Ovalocytes Few Ron Cells Few Prothrombin Time 58.8 sec (9.3-11.8) Prothrombin Time INR 6.36 (0.9-1.15) Sodium Level 140 mmol/L (136-145) Potassium Level 6.3 mmol/L (3.5-5.1) Chloride Level 97 mmol/L (98-107) Carbon Dioxide Level < 10 mmol/L (20-31) Anion Gap 33.03205 (5-15) Blood Urea Nitrogen 56 mg/dL (9-23) Creatinine 5.79 mg/dL (0.700-1.30) Glomerular Filtration Rate Calc 9 mL/min (>90) BUN/Creatinine Ratio 9.7 (10.0-20.0) Serum Glucose 173 mg/dL (74-106) Calcium Level 7.8 mg/dL (8.7-10.4) Phosphorus Level 13.3 mg/dL (2.4-5.1) Magnesium Level 2.8 mg/dL (1.6-2.6) Total Bilirubin 3.0 mg/dL (0.2-1.0) Aspartate Amino Transferase (AST) 3524 U/L (13-40) Alanine Aminotransferase (ALT) 844 U/L (7-40) Alkaline Phosphatase 136 U/L (46-116) Ammonia 107 umol/L (11-32) Total Protein 3.6 g/dL (5.7-8.2) Albumin 2.1 g/dL (3.2-4.8) Triglycerides Level 219 mg/dL (< 150) Random Vancomycin Level 18.8 ug/mL (5-10) Hepatitis A Antibody Total Positive (Negative) Hepatitis B Surface Antigen Negative (Negative) Hepatitis B Surface Antibody Negative (Negative) Hepatitis B Core Total Antibody Negative (Negative) Hepatitis C Antibody Negative (Negative) Lactic Acid Level 19.5 mmol/L (0.4-2.0) Test 11/13/24 22:30 11/13/24 20:40 11/13/24 06:16 11/12/24 01:45 Large Platelets Few Specimen Drawn By Blood Gas Spontaneous Rate 26 Differential Total Cells Counted 100.0 (100) Neutrophils % (Manual) 86 (37.0-80.0) Band Neutrophils % (Manual) 1 Lymphocytes % (Manual) 8 (10.0-50.0) Monocytes % (Manual) 5 (0-12) Eosinophils % (Manual) 0 (0-7) Basophils % (Manual) 0 (0.0-2.0) Metamyelocytes % (manual) 0 Myelocytes % (Manual) 0 Promyelocytes % (Manual) 0 Blast Cells % (Manual) 0 Reactive Lymphocytes 0 Test 11/11/24 07:13 11/10/24 05:00 11/08/24 16:35 11/08/24 05:20 Activated Partial Thromboplast Time 41.3 SEC (24.5-34.5) B-Type Natriuretic Peptide 4943.42 pg/mL (0-100) Vitamin D 25-Hydroxy 17.5 ng/mL (30.0-100) Parathyroid Hormone (Intact) 167.0 pg/mL (18.4-80.1) Body Fluid Source Pleural fluid Body Fluid pH 8.0 Body Fluid WBC (Manual) 215 CUMM (0-200) Body Fluid RBC (Manual) 99766 CUMM (0-2000) Body Fluid Mononuclear Cells 35 % Body Fluid Polymorphonuclear Cells 65 % (0-25) Body Fluid Glucose 147 mg/dL (.) Body Fluid Total Protein 1.2 g/dL (.) Body Fluid Lactate Dehydrogenase 48 IU/L (.) Vitamin B12 Level 1136 pg/mL (211-911) Thyroid Stimulating Hormone (TSH) 9.63 uIU/mL (0.55-4.78) Test 11/08/24 00:50 Urine Color Yellow (Yellow) Urine Clarity Clear (Clear) Urine pH 5.5 (5.0-9.0) Urine Specific Browns 1.019 (1.001-1.035) Urine Protein 3+ (Negative) Urine Ketones Negative (Negative) Urine Blood Trace /uL (Negative) Urine Nitrite Negative (Negative) Urine Bilirubin 1+ (Negative) Urine Urobilinogen Normal mg/dL (Negative) Urine Leukocyte Esterase Negative /uL (Negative) Urine RBC <1 /hpf (0 - 3) Urine WBC 2 /hpf (0 - 3) Urine Squamous Epithelial Cells Few /hpf (<5) Urine Bacteria Few /hpf (None Seen) Urine Glucose 2+ mg/dL (Normal) Other Laboratory Tests 11/14/24 03:32 Brief Hx & Hospital Course: 74-year-old male initially admitted to the hospital with the increasing shortness a breath found to have acute on chronic hypoxic respiratory failure secondary to acute CHF exacerbation with systolic dysfunction as well as fluid overload with missed hemodialysis. Patient does have known history of end-stage renal disease on hemodialysis. Patient was intubated of started on mechanical ventilation. Patient was found to have septic shock with Gram-positive bacteremia and persistent bacteremia status post DARVIN showed evidence of infective endocarditis. Patient was kept in ICU started on broad-spectrum IV antibiotics. Patient was requiring multiple vasopressors. Patient was being seen by Pulmonary, Nephrology, Infectious Disease as well as Cardiology. Patient went into ventricular fibrillation eventually code blue was called. Full ACLS protocol was followed patient was on11/14/2024. Patient's causes of are: 1. Acute hypoxic respiratory failure secondary to acute CHF exacerbation with systolic dysfunction as well as fluid overload. 2. End-stage renal disease on hemodialysis 3. Cardiomyopathy with EF of 25% 4. Septic shock secondary to persistent bacteremia and infective endocarditis. Final Diagnosis/Problems List 1. Acute hypoxic respiratory failure secondary to acute CHF exacerbation with systolic dysfunction as well as fluid overload. 2. End-stage renal disease on hemodialysis 3. Cardiomyopathy with EF of 25% 4. Septic shock secondary to persistent bacteremia and infective endocarditis. Discharge Disposition: Still a Patient NAVEEN DAMIAN MD Nov 17, 2024 14:15
== END 2024-11-14 09:30 | DRG 871 ==
LOC: EDBD 12:42 → EDUNIT# 12:42 → ER 12:55 → TELE 20:24 → TELE-CENTR 11-08 23:52 → ICU WEST 11-11 07:41
PROVIDERS: ADMIT Internal Medicine; ATTEND Internal Medicine
PROC: 0W993ZZ Drainage of Right Pleural Cavity, Percutaneous Approach (ICD-10-PCS; 2024-11-08)
PROC: 5A1D70Z Performance of Urinary Filtration, Intermittent, Less than 6 Hours Per Day (ICD-10-PCS; 2024-11-09)
PROC: 5A1945Z Respiratory Ventilation, 24-96 Consecutive Hours (ICD-10-PCS; principal; 2024-11-11)
PROC: 0BH17EZ Insertion of Endotracheal Airway into Trachea, Via Natural or Artificial Opening (ICD-10-PCS; 2024-11-11)
PROC: 02HV33Z Insertion of Infusion Device into Superior Vena Cava, Percutaneous Approach (ICD-10-PCS; 2024-11-11)
PROC: B548ZZA Ultrasonography of Superior Vena Cava, Guidance (ICD-10-PCS; 2024-11-11)
PROC: 03HY32Z Insertion of Monitoring Device into Upper Artery, Percutaneous Approach (ICD-10-PCS; 2024-11-11)
PROC: 0B9D8ZX Drainage of Right Middle Lung Lobe, Via Natural or Artificial Opening Endoscopic, Diagnostic (ICD-10-PCS; 2024-11-11)
PROC: 5A1D70Z Performance of Urinary Filtration, Intermittent, Less than 6 Hours Per Day (ICD-10-PCS; 2024-11-11)
PROC: 0BC78ZZ Extirpation of Matter from Left Main Bronchus, Via Natural or Artificial Opening Endoscopic (ICD-10-PCS; 2024-11-11)
PROC: 0BC38ZZ Extirpation of Matter from Right Main Bronchus, Via Natural or Artificial Opening Endoscopic (ICD-10-PCS; 2024-11-11)
PROC: B24BZZ4 Ultrasonography of Heart with Aorta, Transesophageal (ICD-10-PCS; 2024-11-12)
PROC: 5A12012 Performance of Cardiac Output, Single, Manual (ICD-10-PCS; 2024-11-14)
PROC: 5A2204Z Restoration of Cardiac Rhythm, Single (ICD-10-PCS; 2024-11-14)
DX: A41.9 Sepsis, unspecified organism (principal); I33.0 Acute and subacute infective endocarditis; J96.21 Acute and chronic respiratory failure with hypoxia; N18.6 End stage renal disease; R65.21 Severe sepsis with septic shock; I50.23 Acute on chronic systolic (congestive) heart failure; E46 Unspecified protein-calorie malnutrition; I13.2 Hypertensive heart and chronic kidney disease with heart failure and with stage 5 chronic kidney disease, or end stage renal disease; J98.11 Atelectasis; E87.20 Acidosis, unspecified; I42.9 Cardiomyopathy, unspecified; K62.5 Hemorrhage of anus and rectum; T82.7XXA Infection and inflammatory reaction due to other cardiac and vascular devices, implants and grafts, initial encounter; E11.22 Type 2 diabetes mellitus with diabetic chronic kidney disease; I46.9 Cardiac arrest, cause unspecified; I49.01 Ventricular fibrillation; F17.210 Nicotine dependence, cigarettes, uncomplicated; I25.10 Atherosclerotic heart disease of native coronary artery without angina pectoris; I48.91 Unspecified atrial fibrillation; J44.9 Chronic obstructive pulmonary disease, unspecified; R62.7 Adult failure to thrive; Y83.1 Surgical operation with implant of artificial internal device as the cause of abnormal reaction of the patient, or of later complication, without mention of misadventure at the time of the procedure; R00.1 Bradycardia, unspecified; E11.649 Type 2 diabetes mellitus with hypoglycemia without coma; F32.A Depression, unspecified; I08.1 Rheumatic disorders of both mitral and tricuspid valves; R79.1 Abnormal coagulation profile; Z99.2 Dependence on renal dialysis; Z79.84 Long term (current) use of oral hypoglycemic drugs; Z82.49 Family history of ischemic heart disease and other diseases of the circulatory system; Z95.0 Presence of cardiac pacemaker; Z82.5 Family history of asthma and other chronic lower respiratory diseases; Z68.21 Body mass index [BMI] 21.0-21.9, adult; Y92.89 Other specified places as the place of occurrence of the external cause
CPT/HCPCS: 31624; 32555; 36415; 36556; 36600; 36620; 70450; 71045; 76705; 80048; 80053; 80202; 81001; 82140; 82306; 82565; 82607; 82805; 82962; 83605; 83735; 83880; 83970; 83986; 84100; 84443; 84478; 85007; 85014; 85018; 85025; 85027; 85610; 85730; 86704; 86706; 86708; 86803; 87040; 87070; 87077; 87081; 87186; 87205; 87340; 89051; 90935; 92950; 93005; 93306; 93312; 94002; 94003; 94640; 97163; 99291; G0378; J0171; J0330; J1642; J1815; J2405; J2543; J7060; P9047